=== PATIENT | female | born 1940 | race Caucasian/White ===

== ENCOUNTER 2016-06-20 05:43 | Inpatient (IN) | payer OTHER ==
[2016-06-15 11:44] VITALS: BMI 25.0
--- NOTE | 2016-06-15 12:08 | PAT Medication Instructions ---
Service Date Jun 15, 2016. Current Home Medication List Calcium Carbonate (Caltrate 600), 1 TAB PO QAM Fish Oil (Redford-3), 1 CAP PO QAM Lisinopril (Zestril), 10 MG PO QAM Vitamin E (Cvs Vitamin E), 1 TAB PO QAM Medication Instructions For Your Scheduled Surgery - Hold the following medications as of 06/16/16: Fish Oil (Redford-3), 1 CAP PO QAM Vitamin E (Cvs Vitamin E), 1 TAB PO QAM - Hold the following medications the morning of surgery: Calcium Carbonate (Caltrate 600), 1 TAB PO QAM Lisinopril (Zestril), 10 MG PO QAM *Nothing to eat or drink after midnight* If you have any questions please call us at [phone] or [phone] or [phone]
[2016-06-15 13:03] LABS: BASO % 1.1 %; BASO ABS # 0.06 K/uL (0-0.2); COMPLETE YES; EOS % 3.7 %; HEMATOCRIT 39.1 % (37-47); IG% 0.2 %; LYMPH % 28.9 %; LYMPH ABS # 1.64 K/uL (1.2-3.4); MEAN CELL VOLUME 83.4 fL (80-100); MEAN CORPUSCULAR HEMOGLOBIN 28.4 pg (25-34); MEAN PLATELET VOLUME 9.4 fL (7.4-10.4); MONO % 9.2 %; NEUT % 56.9 %; PLATELET COUNT 269 K/uL (130-400); RED BLOOD COUNT 4.69 M/uL (4.2-5.4); WHITE BLOOD COUNT 5.67 K/uL (4.8-10.8)
--- NOTE | 2016-06-15 13:08 | DIAGNOSTIC IMAGING REPORT ---
CHEST PREADMISSION(PA/LAT) HISTORY: Preop. COMPARISON: None. FINDINGS: No pleural effusions. No pneumothorax. No focal lung consolidations. No evidence for pulmonary edema. The heart is top normal in size. Mildly tortuous thoracic aorta. Retrocardiac density is consistent with a moderate hiatus hernia. IMPRESSION: No acute process. Moderate hiatus hernia Electronically signed by: Delbert Zapata M.D. 06/15/2016 1:07 PM Dictated Date/Time: 06/15/2016 1:06 PM
[2016-06-15 13:18] LABS: BUN/CREATININE RATIO 27.9 (10-20); CALCIUM 9.9 mg/dl (8.5-10.1); CREATININE 0.71 mg/dl (0.60-1.20)
[2016-06-15 13:24] LABS: URINE APPEARANCE CLOUDY (CLEAR); URINE BILIRUBIN NEG (NEG); URINE COLOR YELLOW; URINE EPITHELIAL CELL AUTO >30 /lpf (0-5); URINE NITRITE POS (NEG); URINE SPECIFIC GRAVITY 1.019 (1.000-1.030); UROBILINOGEN NEG (NEG)
[2016-06-15 13:41] LABS: MANUAL MICROSCOPIC REQUIRED? NO; REVIEW REQ? YES
[~2016-06-20] VITALS: Ht 160 cm; Wt 63.0 kg
[2016-06-20] VITALS (13 sets, daily range): BP systolic 132–159; BP diastolic 68–89; PULSE 45–85; TEMP 36.3–36.8; O2SAT 98–100; Ht 160 cm; Wt 63.0 kg
[~2016-06-20 05:43] MED LIST: CALCTAB5 PO; LISI-461 PO; OMEG10007 PO; VITA-88 PO
[2016-06-20] MEDS ORDERED: LACTATED RINGER'S 1000ML 1,000 ML IV SCH (06:00)
[2016-06-20] MEDS ORDERED: CEFAZOLIN 1000MG/55 ML D5W IV SCH (06:00)
[2016-06-20] MEDS ORDERED: MIDAZOLAM HCL 1 MG/ML 2ML VIAL ONE (06:37)
[2016-06-20] MEDS ORDERED: FENTANYL CITRATE INJ 50 MCG/1 ML 2 ML VIAL ONE ×3 (06:37→08:02)
[2016-06-20] MEDS ORDERED: SODIUM CHLORIDE 0.9% PF 50 ML VIAL ONE (06:55)
[2016-06-20] MEDS ORDERED: BACITRACIN 50000 UNIT VIAL ONE (06:56)
--- NOTE | 2016-06-20 07:16 | History & Physical Bridge Note ---
H&P Re-Evaluation Bridge Note: I have examined the patient, reviewed the History & Physical and in the interval since the performance of the History & Physical I have noted the following changes of clinical significance: No changes noted
--- NOTE | 2016-06-20 07:17 | History and Physical ---
History & Physical Date Jun 20, 2016. History of Present Illness The patient is a 75 year old female with complaints of Past Medical/Surgical History neck and arm pain Additional History Hepatic Disease: No Endocrine Disorder: No Kidney Disease: No Hypertension: No Heart Disease: No Bleeding Tendencies: No Infectious Diseases: No Allergies Coded Allergies: No Known Allergies (Unverified , 06/20/16) Home Medications Scheduled Calcium Carbonate (Caltrate 600), 1 TAB PO QAM Fish Oil (Stafford-3), 1 CAP PO QAM Lisinopril (Zestril), 10 MG PO QAM Vitamin E (Cvs Vitamin E), 1 TAB PO QAM Physical Examination Skin: warm/dry, no rash Eyes: normal inspection, EOMI, sclerae normal ENT: normal ENT inspection, pharynx normal Head: normocephalic, atraumatic Neck: supple, no adenopathy, trachea midline Respiratory/Chest: lungs clear, normal breath sounds, no respiratory distress Cardiovascular: regular rate, rhythm, no edema, no murmur Abdomen / GI: normal bowel sounds, non tender Back: normal inspection Extremities: normal inspection, normal range of motion Neurologic/Psych: no motor/sensory deficits, alert, normal reflexes, oriented x 3 Diagnosis cervical stenosis Plan of Treatment C5 corpectomy possible C6-7 acdf
[2016-06-20] MEDS ORDERED: PHENYLEPHRINE 100MCG/ML 5ML SYR IV PRN (07:30)
[2016-06-20] MEDS ORDERED: LABETALOL HCL IV 5 MG/ML 20ML IV PRN (07:30)
[2016-06-20] MEDS ORDERED: ATROPINE SULFATE 0.1 MG/ML 5ML SYR IV PRN (07:30)
[2016-06-20] MEDS ORDERED: MEPERIDINE HCL 25 MG/ML CARP IV PRN (07:30)
[2016-06-20] MEDS ORDERED: MoRPHine SULFATE 10 MG/ML CARP/VIAL IV PRN (07:30)
[2016-06-20] MEDS ORDERED: ONDANSETRON INJ 2 MG/ML 2 ML VIAL IV PRN ×2 (07:30→09:00)
[2016-06-20] MEDS ORDERED: EpHEDrine SULFATE INJ 50 MG/ML AMP IV PRN (07:30)
[2016-06-20] MEDS ORDERED: FLUMAZENIL 0.1 MG/1 ML 10 ML VIAL IV PRN (07:30)
[2016-06-20] MEDS ORDERED: NALOXONE HCL 0.4 MG/1 ML VIAL/CARP IV PRN ×2 (07:30→09:00)
[2016-06-20] MEDS ORDERED: HYDROmorphone INJ 1 MG/ML SYR IV PRN ×2 (07:30→11:15)
[2016-06-20] MEDS ORDERED: HYDROmorphone INJ 2 MG/ML SYR/VIAL ONE ×2 (07:56→08:54)
[2016-06-20] MEDS ORDERED: LIDOCAINE HCL 2% 2 ML VIAL (20MG/ML) ONE (08:42)
[2016-06-20] MEDS ORDERED: DEXAMETHASONE SOD INJ 4 MG/ML VIAL ONE (08:42)
[2016-06-20] MEDS ORDERED: PROPOFOL IV EMULSION 10 MG/ML 20 ML VIAL IV ONE (08:42)
[2016-06-20] MEDS ORDERED: ROCURONIUM BROMIDE 10 MG/ML 5 ML VIAL ONE ×2 (08:42→08:59)
--- NOTE | 2016-06-20 08:55 | [facility] Post Operative Brief Note ---
Immediate Operative Summary Operative Date Jun 20, 2016. Pre-Operative Diagnosis Cervical stenosis Post-Operative Diagnosis Cervical stenosis Procedure(s) Performed C5 Corpectomy, C6-C7 Anterior Cervical Decompression Fusio; Application of Brittani; Anterior Plate and Screw Fixation Surgeon Dr. Shultz Rib Cloth Knitter Surgeon(s) Arabella Purcell PA-C Estimated Blood Loss 5 cc Findings stenosis Specimens none per surgeon
[2016-06-20] MEDS ORDERED: PHENYLEPHRINE 100MCG/ML 5ML SYR ONE (08:59)
[2016-06-20] MEDS ORDERED: NEOSTIGMINE METHYLSULFATE 1 MG/ML 10ML VIAL ONE (08:59)
[2016-06-20] MEDS ORDERED: ONDANSETRON INJ 2 MG/ML 2 ML VIAL ONE (08:59)
[2016-06-20] MEDS ORDERED: GLYCOPYRROLATE INJ 0.2 MG/ML VIAL ONE (08:59)
[2016-06-20] MEDS ORDERED: DO NOT ADMINISTER PNEUMOCOCCAL VACCINE PRN ×2 (09:00)
[2016-06-20] MEDS ORDERED: HYDROmorphone INJ 0.5 MG/0.5 ML SYR IV PRN (09:00)
[2016-06-20] MEDS ORDERED: DiphenhydrAMINE HCL 50 MG/ML VIAL IV PRN (09:00)
[2016-06-20] MEDS ORDERED: OXYCODONE HCL IR 5 MG TAB (IMMEDIATE RELEASE) PO PRN (09:00)
[2016-06-20] MEDS ORDERED: LORAZEPAM 0.5 MG TAB PO PRN (09:00)
[2016-06-20] MEDS ORDERED: MAGNESIUM HYDROXIDE SUSP 30 ML UDC PO PRN (09:00)
[2016-06-20] MEDS ORDERED: ACETAMINOPHEN IV 1,000 MG in EMPTY BAG 0 ML IV PRN (09:00)
[2016-06-20] MEDS ORDERED: DO NOT ADMINISTER FLU VACCINE PRN ×3 (09:00)
[2016-06-20] MEDS ORDERED: DEXAMETHASONE INJ 8 MG in SYRINGE 0 ML IV PRN (09:00)
[2016-06-20] MEDS ORDERED: RACEPINEPHRINE 2.25% NEBU SOLN 0.5 ML VIAL INH PRN (09:00)
[2016-06-20] MEDS ORDERED: LORAZEPAM INJ 0.5 MG in SYRINGE 0.75 ML IV PRN (09:00)
--- NOTE | 2016-06-20 09:30 | DIAGNOSTIC IMAGING REPORT ---
INTRAOPERATIVE RADIOGRAPHS CLINICAL HISTORY: C5 corpectomy with C4-C7 spinal fusion. Fluoroscopy time: 8 seconds. FINDINGS: 2 spot fluoroscopic views of the cervical spine are presented. An endotracheal tube is noted. There is evidence of corpectomy at C5 with anterior fusion from C4 -C7. The orthopedic hardware appears intact. IMPRESSION: Intraoperative images from C4 -C7 spinal fusion as above. Electronically signed by: Harrison Real M.D. 06/20/2016 9:29 AM Dictated Date/Time: 06/20/2016 9:28 AM
[2016-06-20] MEDS ORDERED: HydrALAZINE HCL 20 MG/ML VIAL ONE (09:41)
[2016-06-20] MEDS ORDERED: FLOSEAL HEMOSTATIC MATRIX 10ML TOP ONE (09:58)
[2016-06-20] MEDS ORDERED: HydrALAZINE HCL 20 MG/ML VIAL IV. ONE (10:00)
--- NOTE | 2016-06-20 10:23 | Anesthesiology Progress Note ---
Anesthesia Post Op Note Date & Time Jun 20, 2016 at 10:23 Vital Signs Pain Intensity: 0 Vital Signs Past 12 Hours Date Time Temp Pulse Resp B/P Pulse Ox O2 Delivery O2 Flow Rate FiO2 06/20/16 10:15 36.1 47 18 152/67 99 Nasal Cannula 3 06/20/16 10:05 47 16 155/71 99 Nasal Cannula 3 06/20/16 10:02 48 16 99 06/20/16 10:02 48 16 06/20/16 10:00 147/83 06/20/16 09:57 47 20 06/20/16 09:57 44 20 99 06/20/16 09:55 175/71 06/20/16 09:52 50 15 100 06/20/16 09:52 50 15 06/20/16 09:50 163/75 06/20/16 09:47 47 17 100 06/20/16 09:47 47 17 06/20/16 09:46 47 17 06/20/16 09:46 47 17 100 06/20/16 09:45 170/82 06/20/16 09:41 47 17 06/20/16 09:41 47 17 100 06/20/16 09:40 174/76 06/20/16 09:36 51 14 06/20/16 09:36 51 14 100 06/20/16 09:35 170/79 06/20/16 09:31 48 14 06/20/16 09:31 48 14 100 06/20/16 09:30 165/78 06/20/16 09:26 53 11 100 06/20/16 09:26 52 11 06/20/16 09:25 54 12 06/20/16 09:25 54 12 182/83 100 06/20/16 09:21 176/83 06/20/16 09:20 54 9 100 06/20/16 09:20 54 9 06/20/16 09:15 57 14 150/95 100 06/20/16 09:15 58 14 06/20/16 09:10 57 11 06/20/16 09:10 57 11 175/85 100 06/20/16 09:09 35.8 61 15 167/90 100 Mask 10 06/20/16 06:28 36.6 59 20 159/86 99 Room Air Notes Mental Status: alert / awake / arousable, participated in evaluation Pt Amnestic to Procedure: Yes Nausea / Vomiting: adequately controlled Pain: adequately controlled Airway Patency, RR, SpO2: stable & adequate BP & HR: stable & adequate Hydration State: stable & adequate Anesthetic Complications: no major complications apparent
[2016-06-20] MEDS: LACTATED RINGER'S 1000ML 1,000 ML IV SCH ×2 (11:53→23:47)
[2016-06-20] MEDS ORDERED: SCOPOLAMINE 1.5 MG TDSY TD SCH (12:00)
--- NOTE | 2016-06-20 12:25 | OPERATIVE REPORT ---
DATE OF OPERATION: 06/20/2016 PREOPERATIVE DIAGNOSIS: Cervical spinal stenosis with myeloradiculopathy. POSTOPERATIVE DIAGNOSIS: Same. PROCEDURES PERFORMED: 1. Anterior cervical corpectomy C5. 2. Anterior cervical discectomy C6-C7. 3. Anterior cervical arthrodesis C4-C6, C6-C7. 4. Placement of PEEK cage 21 mm in height from C4-C6 and 6 mm at C6-C7. 5. Placement of locally harvested morcellized autograft combined with Brittani bone grafting in the interbody spacers. 6. Application of Benitez plate and screws from C4-C7. SURGEON: Dr. Adilson Shultz. APPEALS COORDINATOR: Arabella Purcell PA-C. Due to the complex nature of the procedure, the entire surgery was performed with the operational assistance of JULIAN Gonzalez. The physician office assistant, under direct supervision, was involved in the actual performance of all aspects of the surgical procedure including hemostasis, tissue retraction and incision, instrument management, patient positioning, and wound closure. ANESTHESIA: General. DISPOSITION: The patient awakened and taken to PACU in stable condition. HISTORY OF PATIENT'S PROBLEMS: This is a 75-year-old female that presents with above-mentioned diagnosis. After failing an extensive course of nonoperative care, elected to undergo the above-mentioned procedure. Risks, benefits, pros, cons, and alternatives were outlined in detail preoperatively. DESCRIPTION OF PROCEDURE: The patient was met with preoperatively, the case discussed and all questions were addressed. At that point, the patient was taken back to operative suite and after undergoing successful general endotracheal intubation via department of anesthesia was placed in supine position on the Joaquin table with head in Rucker tilting head band sawyer. All bony prominences were well padded and the eyes were inspected to ensure there was no external pressure placed upon them. At this point, anterior cervical spine was prepped and draped in normal sterile fashion. With the assistance of fluoroscopy, we identified the C5-C6 disc space and transverse incision was placed along the right anterior aspect of the cervical spine overlying this region. Sharp dissection with the assistance of bipolar electrocautery was performed down to and exposing the anterior cervical spine from C4-C7. A self-retaining retractor was placed. I then performed a complete discectomy of C4-5, out to the uncovertebral joints, followed by C5-C6. Distracting pins were placed in C4 and C6 to distract across the C5 vertebral body. A complete corpectomy was then performed including removal of all posterior annular fibers, longitudinal ligament and bilateral foraminotomies. The endplates were then burred to subcortical bleeding bone and a 21 mm PEEK cage filled with locally harvested morcellized autograft and Brittani bone grafting tapped into position. Distracting apparatus was removed and we proceeded to C6-C7, again a complete discectomy was performed, endplates curetted to subcortical bleeding bone and a 6 mm PEEK cage filled with locally harvested morcellized autograft and Brittani bone grafting tapped into position. Distracting apparatus was removed. All anterior osteophytes burred to a smooth cortical surface and Benitez plate and screws applied with the assistance of fluoroscopy. The incision was then copiously irrigated, explored to ensure there was no damage to surrounding structures or remaining bleeding. A 10 round PENNIE drain inserted. It was then closed with 2-0 Vicryl in the fascia, 4-0 Monocryl for final skin closure. Steri-Strips and sterile dressing was placed. The patient was awakened and taken to PACU in stable condition. I attest to the content of the Intraoperative Record and any orders documented therein. Any exceptio ns are noted below.
[2016-06-20] MEDS: DEXAMETHASONE INJ 6 MG in SYRINGE 0 ML IV SCH ×2 (12:51→20:46)
[2016-06-20] MEDS ORDERED: RXC5 PO (15:50)
--- NOTE | 2016-06-20 15:51 | Discharge Instructions ---
Discharge Instructions Date of Service Jun 20, 2016. Admission Reason for Admission: Cervical Spinal Stenosis Discharge Discharge Diagnosis / Problem: cervical stenosis Discharge Goals Goal(s): Improve function Activity Recommendations Activity Limitations: per Instructions/Follow-up section . Instructions / Follow-Up Instructions / Follow-Up ACTIVITY RECOMMENDATIONS: SELF CARE INSTRUCTIONS AFTER CERVICAL FUSIONS 1. No smoking. Smoking drastically decreases the chance of a solid fusion. 2. No bending, lifting more than 5 pounds, or twisting (roll like a log when turning in bed). 3. You may shower 3 days after surgery. Thoroughly dry wound. Do not soak in the tub. 4. Cervical collar: Must be worn at all times including sleeping. You may remove the brace only to bath, eat and if you are sitting in a recliner. 5. Please walk as much as you can for exercise. Gradually increase the distance that you walk as your endurance increases. SPECIAL CARE INSTRUCTIONS: VERY IMPORTANT TO READ AND REVIEW A. Do not take any anti-inflammatory medications (i.e. Indocin, Advil, Aspirin, Naprosyn, Aleve, Motrin, etc.) as these may inhibit the chance of a solid fusion. Tylenol is okay to take. B. Your surgical incision has been closed with a cosmetic suture under the skin that will dissolve in about 6 weeks. In 14 days, you can use a pair of clean scissors and cut the suture that is left outside of the skin at the ends of your incision. C. Complications are uncommon, but please contact us if you have any signs or symptoms of: 1. wound infection (fever higher than 102.5 degrees F, redness, separation of wound, drainage, or increasing pain from the incision) 2. blood clots in legs (pain, swelling, redness and warmth in legs) 3. urinary tract infection (fever higher than 102.5 degrees, burning upon urination or increased frequency of urination) 4. nerve problems (inability to walk on your toes or heels, numbness, loss of bowel or bladder control) 5. any other symptoms that concern you. D. Please call the office at if you have any concerns or questions about your operation or recovery. MANAGING PAIN AFTER SPINAL SURGERY 1. Narcotic medication is intended for short-term use and will be provided for surgical pain. Surgical pain usually lasts for a period of 4-6 weeks. Narcotic medication includes Percocet, Vicodin, Darvocet, Tylenol #3 or Lortab. 2. Longer-term pain is more appropriately treated with non-narcotic medication such as Tylenol ES. 3. Muscle spasm is not appropriately treated with narcotics. Muscle relaxers such as Soma, Flexeril or Skelaxin can be used along with Tylenol ES. 4. Remember that we all live with some "aches and pains". This is not unusual or uncommon after an injury or as we get older. 5. We will provide appropriate medication within the normal guidelines of their prescribed use. We will also be very cautious and aware of potential abuse and extended duration of patients' medication needs. 6. Please allow 2-3 days to process refills. Prescriptions will not be mailed but must be picked up at the office. FOLLOW UP VISIT: Keep your scheduled follow-up appointment. Any questions, please call the office at . Current Hospital Diet Patient's current hospital diet: Clear Liquid Diet Discharge Diet Recommended Diet: Regular Diet Procedures Procedures Performed: C5 Corpectomy, C6-C7 Anterior Cervical Decompression Fusio; Application of Brittani; Anterior Plate and Screw Fixation Pending Studies Studies pending at discharge: no Medical Emergencies . Who to Call and When: Medical Emergencies: If at any time you feel your situation is an emergency, please call 911 immediately. . Non-Emergent Contact Non-Emergency issues call your: Primary Care Provider . "Provider Documentation" section prepared by Adilson Shultz. VTE Core Measure Inpt VTE Proph given/why not?: Josephine Jernigan, DAVE's
[2016-06-20] MEDS: CHECK SCOPOLAMINE PATCH PLACEMENT SCH ×2 (15:54→23:48)
[2016-06-20] MEDS: CEFAZOLIN IV 1,000 MG in DEXTROSE 5% 50ML 50 ML IV SCH ×2 (15:57→23:47)
[2016-06-20] MEDS: DOCUSATE SODIUM 100 MG CAP PO SCH (20:46)
[2016-06-21] VITALS (12 sets, daily range): BP systolic 139–154; BP diastolic 68–77; PULSE 43–80; TEMP 36–36.9; O2SAT 93–98
[2016-06-21] MEDS: DEXAMETHASONE INJ 6 MG in SYRINGE 0 ML IV SCH (03:51)
[2016-06-21] MEDS: CHECK SCOPOLAMINE PATCH PLACEMENT SCH (08:00)
[2016-06-21] MEDS: CEFAZOLIN IV 1,000 MG in DEXTROSE 5% 50ML 50 ML IV SCH (08:29)
[2016-06-21] MEDS: DOCUSATE SODIUM 100 MG CAP PO SCH (08:30)
[2016-06-21] MEDS ORDERED: LISINOPRIL 10 MG TAB PO SCH (09:00)
[2016-06-21] MEDS ORDERED: CALCIUM 600MG + VIT D 400 IU TAB PO SCH (09:00)
--- NOTE | 2016-06-21 10:47 | Anesthesiology Progress Note ---
Anesthesia Post Op Note Date & Time Jun 21, 2016 at 10:47 Vital Signs Pain Intensity: 0.0 Vital Signs Past 12 Hours Date Time Temp Pulse Resp B/P Pulse Ox O2 Delivery O2 Flow Rate FiO2 06/21/16 07:49 77 14 94 Room Air 06/21/16 07:20 36.0 54 16 154/72 96 Nasal Cannula 06/21/16 07:15 36.0 50 16 154/72 96 Nasal Cannula 1.0 06/21/16 07:15 Nasal Cannula 1.0 Humidified Oxygen 06/21/16 06:30 36.7 50 16 148/68 96 Nasal Cannula 1.0 Humidified Oxygen 06/21/16 05:37 43 18 97 Nasal Cannula 2.0 06/21/16 03:45 36.6 65 16 146/70 97 Nasal Cannula 2.0 Humidified Oxygen 06/21/16 01:45 36.9 66 16 142/77 98 Nasal Cannula 2.0 Humidified Oxygen 06/21/16 01:30 80 18 97 Nasal Cannula 2.0 06/20/16 23:45 Nasal Cannula 4.0 Humidified Oxygen 06/20/16 23:45 36.8 55 16 159/69 99 Nasal Cannula 3.0 Humidified Oxygen Notes Mental Status: alert / awake / arousable, participated in evaluation Pt Amnestic to Procedure: Yes Nausea / Vomiting: adequately controlled Pain: adequately controlled Airway Patency, RR, SpO2: stable & adequate BP & HR: stable & adequate Hydration State: stable & adequate Anesthetic Complications: no major complications apparent
--- NOTE | 2016-06-21 20:19 | DISCHARGE SUMMARY ---
PRINCIPAL DIAGNOSIS: Cervical spondylosis with myelopathy. HOSPITAL COURSE FOLLOWS: On June 20, patient underwent anterior cervical discectomy, corpectomy and fusion, tolerated this well and taken to the orthopedic floor postoperatively. Postop day #1, PENNIE drain decreased appropriately, swallowing well, no hoarseness. Arm symptoms markedly improved, subsequently discharged home. Discharge orders and instructions found on the chart for further review.
[2016-06-22] MEDS ORDERED: BISACODYL 5 MG TABEC PO PRN (06:00)
[2016-06-22] MEDS ORDERED: BISACODYL 10 MG SUPP PR PRN (06:00)
[2016-06-22] MEDS ORDERED: POLYETHYLENE (MIRALAX) 17 GM PACK PO SCH (09:00)
== END 2016-06-21 14:46 | disposition home or self-care (01) | DRG 473 ==
LOC: ENRESERVDT → ENRESERVTM → C.ACU 05:43 → C.3E 07:00
PROVIDERS: ADMIT Orthopaedic Surgery Orthopaedic Surgery of the Spine; ATTEND Orthopaedic Surgery Orthopaedic Surgery of the Spine
PROC: 0RG20A0 Fusion of 2 or more Cervical Vertebral Joints with Interbody Fusion Device, Anterior Approach, Anterior Column, Open Approach (ICD-10-PCS; principal; 2016-06-20 07:45)
DX: M47.12 Other spondylosis with myelopathy, cervical region (principal)

== ENCOUNTER → 2016-12-21 | Outpatient (CLI) | payer OTHER ==
[~2016-12-21] MED LIST changes: +RXC5 PO
--- NOTE | 2016-12-21 13:41 | DIAGNOSTIC IMAGING REPORT ---
NUCLEAR GASTRIC EMPTYING STUDY: CLINICAL HISTORY: HIATAL HERNIA W/REFLUX ABDOMINAL DISCOMFORT COMPARISON STUDY: TECHNIQUE: Following the oral administration of 1.1 mCi of technetium 99m sulfur colloid in egg sandwich and 8 ounces of water, static abdominal images are performed anteriorly and posteriorly at 0 minutes, 1 hour, 2 hours, and 4 hour time intervals. Gastric emptying was calculated utilizing the geometric mean method. FINDINGS: There is approximately 85 % gastric activity remaining at the 1 hour time interval, 70 % at the 2 hour time interval (normal is less than 60%), and 49 % remaining at the 4 hour time interval (normal is less than 10%). These findings are consistent with an abnormal study with delayed gastric emptying IMPRESSION: Findings are consistent with an abnormal study with delayed gastric emptying Electronically signed by: Toni Quiroz M.D. 12/21/2016 1:40 PM Dictated Date/Time: 12/21/2016 1:38 PM
== END | disposition home or self-care (01) ==
LOC: C.NUCL 07:41
PROVIDERS: ATTEND Physician Assistant Medical
DX: K44.9 Diaphragmatic hernia without obstruction or gangrene (principal)

== ENCOUNTER → 2017-01-05 | Outpatient (CLI) | payer OTHER | END | disposition home or self-care (01) | LOC: C.RC 08:48 | PROVIDERS: ATTEND Thoracic Surgery (Cardiothoracic Vascular Surgery) | DX: J98.11 Atelectasis (principal); K44.9 Diaphragmatic hernia without obstruction or gangrene; K21.9 Gastro-esophageal reflux disease without esophagitis ==

== ENCOUNTER 2018-11-11 16:25 | Inpatient (IN) ==
--- OUTSIDE RECORDS SUMMARY | 2018-11-11 16:28 | External Medical Summary | Continuity of Care Document ---
:1940 Author Name Jordan Garza Address Unavailable Unavailable , Care Team Providers Name Role Phone Cable DO Unavailable [email or web address] Unavailable Unavailable Problems Active medical history not documented Allergies and Adverse Reactions Allergy history not documented Medications Medications not documented Procedures Procedures not documented Immunizations Immunizations not documented Plan of Treatment Planned Observations Planned Goals not documented Results No Known Results Results not documented
[2018-11-11 17:42] LABS: Appearance Urine Turbid (Clear); Bacteria Urine Automated 1+ (Negative); Bilirubin Urine Negative (Negative); Blood Urine 2+ (Negative); Color Urine Yellow; Epithelial Cell Urine Auto >30 /lpf (0-5); Glucose Urine UA Negative (Negative); Ketones Urine Negative (Negative); Leukocyte Esterase Urine 3+ (Negative); Nitrite Urine Positive (Negative); Protein Urine 2+ (Negative); RBC Urine Automated 0-4 /hpf (0-4); Specific Gravity Urine 1.013 (1.000-1.030); Urobilinogen Urine Negative (Negative); WBC Urine Automated >30 /hpf (0-5)
[2018-11-11 17:50] LABS: Basophils # (auto) 0.03 K/uL (0-0.2); Basophils % (auto) 0.6 %; Eosinophils # (auto) 0.15 K/uL (0-0.5); Eosinophils % (auto) 2.8 %; Hematocrit (blood only) 31.4 % (37-47); Hemoglobin 10.3 g/dL (12.0-16.0); Immature Granulocytes # (auto) 0.01 K/uL (0.00-0.02); Immature Granulocytes % (auto) 0.2 %; Lymphocytes # (auto) 1.08 K/uL (1.2-3.4); Lymphocytes % (auto) 19.9 %; Mean Corpuscular Hemoglobin 26.1 pg (25-34); Mean Corpuscular Hgb Conc 32.8 g/dL (32-36); Mean Corpuscular Volume 79.7 fL (80-100); Mean Platelet Volume 9.2 fL (7.4-10.4); Monocytes % (auto) 12.9 %; Neutrophils # (auto) 3.46 K/uL (1.4-6.5); Neutrophils % (auto) 63.6 %; Platelet Count 231 K/uL (130-400); RDW Coefficient of Variation 16.9 % (11.5-14.5); RDW Standard Deviation 49.7 fL (36.4-46.3); Red Blood Count 3.94 M/uL (4.2-5.4); White Blood Count 5.43 K/uL (4.8-10.8)
[2018-11-11] MEDS ORDERED: cefTRIAXone SODIUM 1,000 MG/50 ML BAG IV STA (17:50)
[2018-11-11] MEDS ORDERED: SODIUM CHLORIDE 0.9% 1000ML 1,000 ML IV STA (17:50)
--- NOTE | 2018-11-11 17:55 | CT Scan Report ---
CT abd pelvis wo con CT DOSE: 254.73 mGy.cm HISTORY: Pain ARF, suprapubic abd pain TECHNIQUE: Multiaxial CT images of the abdomen and pelvis were performed without contrast. A dose lo wering technique was utilized adhering to the principles of ALARA. COMPARISON STUDY: None. FINDINGS: Dependent bibasilar atelectasis. Hiatal hernia. General configuration of liver spleen and p ancreas is unremarkable. Bilateral hydroureteronephrosis. Left renal cyst. Considerable distention of the right as well as left ureter. Large soft tissue mass occupying the bulk of the soft tissue pelvic region. This extends through the right obturator foramen. There is partial extension to the left obturator foramen. Rectum is displaced to the right. No evidence for bowel obstructive changes at this time. IMPRESSION: 1. Large low and mid pelvic mass extending to the right as well as left obturator foramen.. This occu pies the bulk of the mid to lower pelvic region.. 2. This large mass contain several calcifications and is of uncertain origin. 3. Mass creates bilateral renal obstructive change with bilateral hydroureteronephrosis. 4. Considerations must include a low pelvic neoplastic process of uncertain origin. 5. Differential considerations must also include the possibility of lymphoma. The above report was generated using voice recognition software. It may contain grammatical, syntax or spelling errors. Electronically signed by: Jacob Dykes M.D. 11/11/2018 5:54 PM
[2018-11-11 17:58] LABS: Cast Urine Automated 0 /lpf (0-5)
[2018-11-11 18:00] LABS: Alanine Aminotransferase 7 U/L (12-78); Albumin Level 2.5 gm/dl (3.4-5.0); Aspartate Aminotransferase 15 U/L (15-37); BUN Creatinine Ratio 11.3 (10-20); Blood Urea Nitrogen 33 mg/dl (7-18); Calcium 9.5 mg/dl (8.5-10.1); Carbon Dioxide 28 mmol/L (21-32); Chloride 103 mmol/L (98-107); Est GFR (African American) 17.1; Est GFR (Non-African American) 14.7; Glucose 99 mg/dl (70-99); Lipase 67 U/L (73-393); Potassium 4.2 mmol/L (3.5-5.1); Sodium 139 mmol/L (136-145)
[2018-11-11 18:02] LABS: Albumin Globulin Ratio 0.6 (0.9-2); Alkaline Phosphatase 67 U/L (45-117); Bilirubin,Total 0.4 mg/dl (0.2-1); Globulin 4.3 gm/dl (2.5-4.0); Total Protein 6.8 gm/dl (6.4-8.2)
--- NOTE | 2018-11-11 18:30 | Emergency Department Note ---
Entered by Dodie Aguilar acting as a scribe for ED Provider Note CHIEF COMPLAINT: Abnormal labs HISTORY OF PRESENT ILLNESS: The patient is a 78 year old female who presents to the Emergency Room with complaints of abnormal labs. The patient states that she got lab work done at [facility] 2 days ago, but received a call today saying that they are concerned for MERRILL. The patient states that she is in no pain, but she struggles with low energy levels. The patient notes that she also has been losing weight in the past 8 months. The patient states that she has episodes of double vision that comes and goes intermittently. The patient notes that she is good at staying hydrated and states that she urinates frequently. Pt denies LOC, headache, fevers, chills, diaphoresis, visual changes, neck pain, chest pain, breathing difficulties, nausea, vomiting, abdominal pain, back pain, melena, hematochezia, urinary symptoms, numbness, weakness, lymphadenopathy, rash, or other complaints. REVIEW OF SYSTEMS: See HPI for pertinent positives and negatives. A total of ten systems were reviewed and were otherwise negative. PMHx/PSHx: Cervical stenosis of spinal canal SOCIAL HISTORY: Patient lives at home. PHYSICAL EXAM: GENERAL: Awake, alert, well-appearing, in no distress HENT: Normocephalic, atraumatic. Oropharynx unremarkable. EYES: PERRL. Normal conjunctiva. Sclera non-icteric. NECK: Inspection normal. Non-tender. Supple. No nuchal rigidity. FROM. No masses. RESPIRATORY: Clear to auscultation. No wheezes. No rales. Normal respiratory effort. CARDIAC: Normal rate. Normal rhythm. No murmurs. No rubs. Extremities warm and well perfused. Pulses equal. No JVD. GI: Suprapubic abdominal pain. Soft, non-distended. No rebound or guarding. No masses. RECTAL: Deferred. MUSCULOSKELETAL: Atraumatic. Chest examination reveals no tenderness. The back is symmetrical on inspection without obvious abnormality. There is no CVA tenderness to palpation. No joint edema. LOWER EXTREMITIES: 1+ edema bilaterally. Calves are equal size bilaterally and non-tender. No discoloration. NEURO: Normal sensorium. No sensory or motor deficits noted. SKIN: No rash or jaundice noted. EMERGENCY DEPARTMENT COURSE: 1632: Past medical records reviewed. The patient was evaluated in room C3, and a complete history and physical examination were performed. 165: Old medical records reviewed. Creatinine was 1.8 and GFR was 28. 1810: Patient was reassessed. She is still doing well. She was given IV Rocephin. I did consult with Dr. Hamilton of urology. The case was discussed and diagnostics were reviewed. He felt the patient does need urgent stenting and is making preparations. He has for the hospitalist to admit. 182: I discussed the patient's case with Liliana camacho NP- [facility]. They will evaluate the patient for further management. MEDICAL DECISION MAKING: Nursing notes reviewed and agree them. Additional history obtained from patient's . The patient's history was concerning for weakness. Differential diagnosis: Etiologies such as metabolic, infection, hypo/hyperglycemia, electrolyte abnormalities, cardiac sources, intracerebral event, toxicologic, neurologic, as well as others were entertained. Physical examination: As above. Suprapubic abdominal pain. ER treatment provided: IV [place] Sal[place] hydration. IV Rocephin N.p.o. On reassessment the patient felt better. Diagnostics interpretation by me: ECG: Twelve-lead ECG revealed sinus rhythm at 74 bpm with PVCs. There is anterolateral T wave inversions. Incomplete left bundle branch block. No ST elevation. The labs revealed a mild anemia on CBC. Chemistry panel revealed acute renal failure with a creatinine of 2.94. Urinalysis concerning for infection. Imaging studies: CT scan and then passes were performed. There is a significant amount of hydro- bilaterally. There is an obstructing pelvic mass. Discussed with Dr. parson of radiology. Consultation: Counseled patient was placed with urology, Dr. Hamilton. He will evaluate the patient for stenting and further management. A consultation was placed to [facility] service. Discussed case with Liliana camacho NP. Patient will be admitted for further management and diagnostic testing. IMPRESSION: MERRILL Pelvic mass Bilateral hydronephrosis Abnormal ECG PLAN: Evaluated by Hospitalist The scribe's documentation has been prepared under my direction and personally reviewed by me in its entirety. I confirm that the note above accurately r eflects all work, treatment, procedures, and medical decision making performed by me. Impression & Plan MERRILL (acute kidney injury) Past Med/Surg History Medical History Cervical stenosis of spinal canal Social History Feels Safe at Home: Yes Smoking Status: Never smoker Results & Data Vital Signs Vital Signs - 24 hr 11/11/18 16:28 11/11/18 17:30 Temperature 37.1 C Temperature Source Oral Sepsis Recent Fever Within 48 Hours No Sepsis New/Unexplained Change in Mental Status No Sepsis Action Taken by Nursing No Action Required Pulse Rate 84 Pulse Rate [Left] 72 Respiratory Rate 16 20 Respiratory Effort / Characteristics Non-Labored Respiratory Depth Normal Blood Pressure 126/78 Blood Pressure [Left Arm] 151/79 H Blood Pressure Mean 94 Blood Pressure Mean [Left Arm] 103 Pulse Oximetry 95 97 Oxygen Delivery Method Room Air Room Air Home Medications Current Medication List: was personally reviewed by me Laboratory Data Result diagrams: 11/11/18 17:35 11/11/18 17:35 Lab Results 11/11/18 11/11/18 11/11/18 Range/Units 17:24 17:35 17:35 WBC 5.43 (4.8-10.8) K/uL RBC 3.94 L (4.2-5.4) M/uL Hgb 10.3 L (12.0-16.0) g/dL Hct 31.4 L (37-47) % MCV 79.7 L (80-100) fL MCH 26.1 (25-34) pg MCHC 32.8 (32-36) g/dL RDW Std Deviation 49.7 H (36.4-46.3) fL RDW Coeff of [place] 16.9 H (11.5-14.5) % Plt Count 231 (130-400) K/uL MPV 9.2 (7.4-10.4) fL Immature Gran % (Auto) 0.2 % Neut % (Auto) 63.6 % Lymph % (Auto) 19.9 % [place] % (Auto) 12.9 % Eos % (Auto) 2.8 % Baso % (Auto) 0.6 % Immature Gran # (Auto) 0.01 (0.00-0.02) K/uL Neut # (Auto) 3.46 (1.4-6.5) K/uL Lymph # (Auto) 1.08 L (1.2-3.4) K/uL [place] # (Auto) 0.70 H (0.11-0.59) K/uL Eos # (Auto) 0.15 (0-0.5) K/uL Baso # (Auto) 0.03 (0-0.2) K/uL Sodium 139 (136-145) mmol/L Potassium 4.2 (3.5-5.1) mmol/L Chloride 103 (98-107) mmol/L Carbon Dioxide 28 (21-32) mmol/L Anion Gap 8.0 (3-11) BUN 33 H (7-18) mg/dl Creatinine 2.94 H (0.6-1.2) mg/dl Est Cr Clr Drug Dosing Not Reportable Est GFR ( Amer) 17.1 Est GFR (Non-Af Amer) 14.7 BUN/Creatinine Ratio 11.3 (10-20) Glucose 99 (70-99) mg/dl Calcium 9.5 (8.5-10.1) mg/dl Total Bilirubin 0.4 (0.2-1) mg/dl AST 15 (15-37) U/L ALT 7 L (12-78) U/L Alkaline Phosphatase 67 (45-117) U/L Total Protein 6.8 (6.4-8.2) gm/dl Albumin 2.5 L (3.4-5.0) gm/dl Globulin 4.3 H (2.5-4.0) gm/dl Albumin/Globulin Ratio 0.6 L (0.9-2) Lipase 67 L (73-393) U/L Urine Color Yellow Urine Appearance Turbid A (Clear) Urine pH 5.0 (4.5-7.5) Ur Specific [place] 1.013 (1.000-1.030) Urine Protein 2+ H (Negative) Urine Glucose (UA) Negative (Negative) Urine Ketones Negative (Negative) Urine Blood 2+ H (Negative) Urine Nitrite Positive A (Negative) Urine Bilirubin Negative (Negative) Urine Urobilinogen Negative (Negative) Ur Leukocyte Esterase 3+ H (Negative) Urine WBC (Auto) >30 H (0-5) /hpf Urine RBC (Auto) 0-4 (0-4) /hpf U Hyaline Cast (Auto) 0 (0-5) /lpf U Epithel Cells (Auto) >30 H (0-5) /lpf Urine Bacteria (Auto) 1+ H (Negative) Administered Medications Sodium Chloride (Nss 1000ml) 1,000 mls @ 125 mls/hr IV .Q8H STA Stop: 11/12/18 01:49 Last Admin: 11/11/18 18:13 Dose: 125 mls/hr Documented by: [id number] Discontinued Medications Ceftriaxone Sodium (Rocephin) 1,000 mg in 50 mls @ 100 mls/hr IV NOW STA Stop: 11/11/18 18:19 Last Admin: 11/11/18 18:13 Dose: 100 mls/hr Documented by: [id number] Blood Pressure Blood Pressure Findings: Normal blood pressure Blood Pressure Disposition: did not require urgent referral Discharge Plan Visit Data Chief Complaint: Abnormal Labs/Diagnostic Testing Stated Complaint: REF BY KIDNEY PROBLEMS ED Provider: Antelmo Varela Discharge Problem: MERRILL (acute kidney injury) Patient Disposition: Being Evaluated by Hospitalist Forms Stand Alone Forms: My [facility] Prescriptions Prescriptions: No Action gabapentin 100 mg capsule 100 mg PO BID RF: 0 metoprolol succinate 25 mg tablet extended release 24 hr 25 mg PO QAM RF: 0 lisinopril 40 mg tablet 40 mg PO QAM RF: 0 Referrals Referrals: Natacha King DO [Primary Care Provider] - The scribe's documentation has been prepared under my direction and personally reviewed by me in its entirety. I confirm that the note above accurately reflects all work, treatment, procedures, and medical decision making performed by me.
[2018-11-11 18:50] LABS: Troponin I < 0.015 ng/ml (0-0.045)
--- NOTE | 2018-11-11 19:36 | Urology Consultation ---
Date of Consultation November 11, 2018 Assessment & Plan (1) MERRILL (acute kidney injury): See below. Supportive care with hydration. (2) Acute bilateral obstructive uropathy: Patient with severe bilateral hydronephrosis with obstruction likely secondary to large irregular pelvic mass occupying and impacting the pelvic organs. Mcgraw in place and draining small amount of urine. Risks and benefits discussed at length for procedure. These include bleeding, infection, injury to surrounding tissues or organs, and risks associated with anesthesia. Patient states understanding and agrees to proceed. Will sign consent and marlene edule. Will plan on urgent intervention for bilateral obstruction with MERRILL. Plan for cystoscopy with stent placement bilateral. History of Present Illness History of Present Illness Patient with abnormal labs sent for evaluation. Was 1.5 cr. Recheck came back 2.9. Was evaluated and found to be in retention, however minimal urine returned. Patient then found to have extremely large pelvic mass with obstruction of ureter and mass effect on bladder. Denies previous bowel or bladder issues. Had hysterectomy many years ago for pelvic issues. Denies previous malignancy. Denies pain, discomfort, bloating, or other problems. Only reason presented to ER was for abnormal labs. Allergies Allergy/AdvReac Type Severity Reaction Status Date / Time acetaminophen [From Vicodin] Allergy Swelling Unverified 11/11/18 18:01 of Lip/Tongue/Throat hydrocodone [From Vicodin] Allergy Swelling Unverified 11/11/18 18:01 of Lip/Tongue/Throat Home Medications Home Medications Medication Instructions Recorded Confirmed Type lisinopril 40 mg PO QAM 11/11/18 11/11/18 History metoprolol succinate 25 mg PO QAM 11/11/18 11/11/18 History Patient History Medical History Cervical stenosis of spinal canal Social History Feels Safe at Home: Yes Smoking Status: Never smoker Review of Systems Review of Systems: All systems reviewed & are unremarkable except as noted in HPI & below Physical Exam Physical Exam: General: Alert and oriented x 3 in no acute distress. Patient is advanced age and thin. HEENT: Normocephalic Atraumatic. Inspection normal. Cranial Nerves 2-12 Grossly intact. Nares are clear. Neck is supple. Normal inspection of face. Normal inspection of neck. Neurologic: No deficits on inspection. Baseline for motor function and sensory. Psychologic: Normal affect. Somewhat anxious with new findings. Respiratory: Nonlabored. No use of accessory muscles. No tachypnea or dyspnea. Cardiovascular: No tachycardia Skin: [place] and Dry. No rashes or visible lesions. Extremities: Moving without issues. No motor deficits on inspection Lymphatics: No edema Abdomen: Moderately distended. No acites. No rebound or guarding. Genitourinary: Mcgraw in place draining clear yellow urine. . Results & Data Vital Signs (Past 12 Hours) Vital Signs Temp Pulse Pulse Resp BP BP Pulse Ox 11/11/18 17:30 72 20 151/79 H 97 11/11/18 16:28 37.1 C 84 16 126/78 95 PG Care Time/CCT Total # of Minutes Spent Total Time Spent with Patient: Total time spent is greater than 50% in coordination of care (as documented) at patient's floor/unit and/or counseling patient:
[2018-11-11] MEDS ORDERED: fentaNYL citrate 100 MCG/2 ML VIAL ONE (20:15)
[2018-11-11] MEDS ORDERED: PROPOFOL IV EMULSION 10 MG/ML 20 ML VIAL IV ONE (20:16)
[2018-11-11] MEDS ORDERED: LIDOCAINE HCL 2% 2 ML VIAL/AMP(20MG/ML) INFIL ONE (20:17)
[2018-11-11] MEDS ORDERED: ONDANSETRON INJ 2 MG/ML 2 ML VIAL ONE (20:17)
[2018-11-11] MEDS ORDERED: MIDAZOLAM HCL 1 MG/ML 2ML VIAL ONE (20:18)
[2018-11-11] MEDS ORDERED: IOTHALAMATE MEGLUMINE II 17.2% 250 ML VIAL ONE (20:27)
--- NOTE | 2018-11-11 20:30 | Anesthesiology Consultation ---
Date of Service November 11, 2018 Assessment & Plan Chart Review Chart Review: Acceptable Risk for Surgery Consults Requested none ASA [id number] Proposed Anesthesia Anesthesia Type: MAC History Surgery Operation Date: 11/11/18 20:00 Proposed Procedures p Ureteral Stent Insertion Bilateral(Bilateral) - Liang Hamilton II, DO Height/Weight Height: 5 ft 2 in Allergies Allergy/AdvReac Type Severity Reaction Status Date / Time acetaminophen [From Vicodin] Allergy Swelling Unverified 11/11/18 18:01 of Lip/Tongue/Throat hydrocodone [From Vicodin] Allergy Swelling Unverified 11/11/18 18:01 of Lip/Tongue/Throat Medications Home Medications Medication Instructions Recorded Confirmed Last Taken lisinopril 40 mg PO QAM 11/11/18 11/11/18 11/11/18 metoprolol succinate 25 mg PO QAM 11/11/18 11/11/18 11/11/18 Active Medications Generic Name Dose Route Start Last Admin Trade Name Freq PRN Reason Stop Dose Admin Sodium Chloride 1,000 mls @ 125 mls/hr 11/11/18 17:50 11/11/18 18:13 Nss 1000ml IV 11/12/18 01:49 125 mls/hr .Q8H STA Administration Past Medical History Medical History Cervical stenosis of spinal canal Social History Smoking Status: Never smoker Physical Exam Vital Signs Last Vital Signs Temp 37.1 C 11/11/18 16:28 Pulse 72 11/11/18 19:30 Resp 21 11/11/18 19:30 BP 165/74 H 11/11/18 19:30 Pulse Ox 95 11/11/18 19:01 Testing Laboratory Results 11/11/18 17:35 11/11/18 17:35 Urine Color Yellow 11/11/18 17:24 Urine Appearance Turbid (Clear) A 11/11/18 17:24 Urine pH 5.0 (4.5-7.5) 11/11/18 17:24 Ur Specific [place] 1.013 (1.000-1.030) 11/11/18 17:24 Urine Protein 2+ (Negative) H 11/11/18 17:24 Urine Glucose (UA) Negative (Negative) 11/11/18 17:24 Urine Ketones Negative (Negative) 11/11/18 17:24 Urine Nitrite Positive (Negative) A 11/11/18 17:24 Ur Leukocyte Esterase 3+ (Negative) H 11/11/18 17:24 Urine WBC (Auto) >30 /hpf (0-5) H 11/11/18 17:24 Urine RBC (Auto) 0-4 /hpf (0-4) 11/11/18 17:24 U Hyaline Cast (Auto) 0 /lpf (0-5) 11/11/18 17:24 U Epithel Cells (Auto) >30 /lpf (0-5) H 11/11/18 17:24 Urine Bacteria (Auto) 1+ (Negative) H 11/11/18 17:24
--- NOTE | 2018-11-11 20:57 | Communication Note ---
Date of Service: November 11, 2018 78 yo F
--- NOTE | 2018-11-11 21:13 | History & Physical Report ---
Date of Service November 11, 2018 Assessment & Plan (1) MERRILL (acute kidney injury): (2) Acute bilateral obstructive uropathy: (3) Pelvic mass: -Admit to [facility] -Patient referred to ED by outpatient neurologist after outpatient labs on 11/09 showed a creatinine 1.8 (was previously 0.8 on 10/01) -In the ED, CT ABD/pelvis is showing a very large pelvic mass that is causing a bilateral obstructive uropathy -Patient is scheduled to go to the OR this evening urgently with urology for ureteral stent placement -Urology is going to attempt to obtain tissue specimen however if unable, will need to consider CT or ultrasound-guided biopsy tomorrow -Etiology of this mass is unclear at this time, noted the patient recently had outpatient labs suggestive of MGUS and has been following with Dr. Sharpe with [facility] -Consider brain MRI to evaluate for metastases -Source of MERRILL is likely due to obstructive uropathy, should improve with stent placement. Continue supportive care with IVF, hold ELGIN inhibitor. (4) UTI (urinary tract infection): -UA suggest UTI -Received IV ceftriaxone in the ED, will continue with -Follow urine culture -Does not appear septic (5) Hypertension: -BP mildly elevated, likely situational -Continue metoprolol, holding lisinopril secondary to MERRILL -Provide alternative antihypertensive if needed (6) DVT prophylaxis: -SCDs due to invasive procedure History of Present Illness Chief Complaint: Referred by neurologist for abnormal labs Primary Care Provider: Natacha King DO 78-year-old female who was referred to the ED by her outpatient neurologist for evaluation of worsening renal function. Over the past couple months, patient has been being evaluated as an outpatient for weight loss. Initially, she was seen by her PCP who ordered a CT of the abdomen that showed an abnormality in the stomach. Patient was referred for EGD and colonoscopy which have not been completed yet. She was also found to have findings of MGUS on labs and has been following with hematology. 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 Labs were obtained on 11/09 that showed a creatinine of 1.8. Previously was 0.8 on 10/01. Patient's outpatient neurologist called the patient today and referred her to the ER for further evaluation. Patient reports a 50 pound weight loss since last February, with 20 of those pounds being in the past month. She reports early satiety. Over the past couple of days, she has noted urinary frequency. Today, she reports abdominal pain with bending over. She also has chronic back pain in which she has been seeing pain management and Dr. Shultz. She was given a prescription for gabapentin which caused double vision and therefore she stopped this medication. The double vision has since resolved. She denies chest pain or shortness of breath. No lightheadedness, dizziness, diaphoresis, syncopal events. No fevers or chills. In the ED, creatinine is 2.9 and she is mildly anemic with H/H 10.3/31.4. CT ABD/pelvis shows large low and mid pelvic mass extending to the right as well as left obturator foramen. Mass creates bilateral renal obstructive change with bilateral hydroureteronephrosis. Urology was contacted by the ED and patient will be going to the OR [facility] for ureteral stent placement. Allergies Allergy/AdvReac Type Severity Reaction Status Date / Time acetaminophen [From Vicodin] Allergy Swelling Unverified 11/11/18 18:01 of Lip/Tongue/Throat hydrocodone [From Vicodin] Allergy Swelling Unverified 11/11/18 18:01 of Lip/Tongue/Throat Home Medications Home Medications Medication Instructions Recorded Confirmed Type lisinopril 40 mg PO QAM 11/11/18 11/11/18 History metoprolol succinate 25 mg PO QAM 11/11/18 11/11/18 History Past Med/Surg History Medical History History of hysterectomy (Chronic) MGUS (monoclonal gammopathy of unknown significance) (Chronic) Hypertension (Chronic) Cervical stenosis of spinal canal (Chronic) Surgical History History of appendectomy (Chronic) Family History Sister Leukemia Mother Cancer Father Cancer Social History Feels Safe at Home: Yes Smoking Status: Never smoker Hx Alcohol Use: No Review of Systems Review of Systems: ROS per HPI, all other systems reviewed and negative Physical Exam Constitutional: + thin (Bitemporal wasting); no acute distress Vitals as noted Eyes: PERRL, conjunctivae normal, anicteric sclerae ENMT: external ear and nose normal, oropharynx normal Respiratory: normal respiratory effort, lungs clear to auscultation Cardiovascular: Rate/Rhythm: regular rate and regular rhythm Vessels: normal peripheral pulses Extremities: no edema Gastrointestinal (Abdomen): Inspection/Auscultation: abdomen normal to inspection and normal bowel sounds; abdomen not distended Percussion/Palpation: + abdomen tender (Mid to lower abdomen) and abdomen soft; no hepatosplenomegaly Musculoskeletal: no cyanosis or clubbing, extremities motor strength 5/5 Skin: no rashes, warm and dry Neurologic: PERRL, EOMI, accommodation nl, no face palsy, no dysarthria Psychiatric: A+Ox3, euthymic affect Results & Data Vital Signs (Past 12 Hours) Vital Signs Temp Pulse Pulse Resp BP BP Pulse Ox 11/11/18 19:30 72 21 165/74 H 11/11/18 19:01 72 22 167/82 H 95 11/11/18 19:00 72 21 95 11/11/18 18:30 70 21 164/75 H 94 11/11/18 17:30 72 20 151/79 H 97 11/11/18 16:28 37.1 C 84 16 126/78 95 Laboratory Results Short CBC 11/11/18 Range/Units 17:35 WBC 5.43 (4.8-10.8) K/uL Hgb 10.3 L (12.0-16.0) g/dL Hct 31.4 L (37-47) % Plt Count 231 (130-400) K/uL BMP 11/11/18 17:35 Sodium 139 Potassium 4.2 Chloride 103 Carbon Dioxide 28 BUN 33 H Creatinine 2.94 H Glucose 99 Calcium 9.5 Cardiac Enzymes 11/11/18 Range/Units 17:35 Troponin I < 0.015 (0-0.045) ng/ml Liver Function 11/11/18 Range/Units 17:35 Total Bilirubin 0.4 (0.2-1) mg/dl AST 15 (15-37) U/L ALT 7 L (12-78) U/L Alkaline Phosphatase 67 (45-117) U/L Albumin 2.5 L (3.4-5.0) gm/dl Urine 11/11/18 Range/Units 17:24 Urine Color Yellow Urine Appearance Turbid A (Clear) Urine pH 5.0 (4.5-7.5) Ur Specific [place] 1.013 (1.000-1.030) Urine Protein 2+ H (Negative) Urine Glucose (UA) Negative (Negative) Diagnostic Findings CT ABD/PELVIS IMPRESSION: 1. Large low and mid pelvic mass extending to the right as well as left obturator foramen.. This occupies the bulk of the mid to lower pelvic region.. 2. This large mass contain several calcifications and is of uncertain origin. 3. Mass creates bilateral renal obstructive change with bilateral hydroureteronephrosis. 4. Considerations must include a low pelvic neoplastic process of uncertain origin. 5. Differential considerations must also include the possibility of lymphoma. Code Status & VTE Plan Code Status Patient is a full code as per my discussion with her. VTE Prophylaxis Plan VTE Prophylaxis will be ordered: Yes Supervising Physician Co-Signing Physician Notes I have seen and examined the patient and have discussed the case with the provider above. I agree with the assessment and plan as stated with the following exceptions. 78 yo F with significant weight loss and constitutional symptoms, presenting after abnormal renal function returned on lab work performed recently. Workup revealed a large pelvic mass of uncertain etiology with mass effect on ureters and bladder. Urology is urgently stenting her tonight and will try to get path. Will consult Manager Domestic also for assistance. Originally seen by Neuro recently for 6th nerve palsy which has resolved, however, would consider discussing progress with Neuro and seeing if MRI still indicated. Waiting on this until renal function improves as contrast would be needed. On exam she is hemodynamically stable and afebrile and is in NAD. She is ill appearing and cachectic. Heart exam is normal and mucous membranes are dry. Lungs were clear to auscultation and there was no focal neuro deficit with noted generalized weakness. EOMI, and PERRL. Assessment: (1) MERRILL 2/2 acute bilateral obstructive uropathy, (2) pelvic mass concerning for neoplasm, (3) severe protein calorie malnutrition, (4) possible UTI, (5) anemia, (6) MGUS. Agree with plan as stated above. Appreciate [facility] Urology care of this patient by Dr. Hamilton. Will also consult BUFFING MACHINE OPERATOR SEMIAUTOMATIC for assistance with workup. Pt had a h/o cystocele with pessary placement in the past that was unsuccessful. Cont empiric Rocephin pending urine culture results. Consult carbon furnace operator for nutritional assessment. DO Lai
--- NOTE | 2018-11-11 23:03 | Operative Report ---
Post Operative Report Pre & Post Diagnosis Operation Date: 11/11/18 20:00 Pre-Op Diagnosis: 1. severe bilateral hydronephrosis with obstruction likely secondary to large irregular pelvic mass 2. MERRILL (acute kidney injury) Post-Op Diagnosis: 1. severe bilateral hydronephrosis with obstruction likely secondary to large irregular pelvic mass 2. MERRILL (acute kidney injury) Procedure Operation Date: 11/11/18 20:00 Actual Procedures p Cystoscopy, Bilateral Ureteral Stent Insertion with Bilateral Retrograde Pyelogram, Bilateral Dilation and TURBT Large (Bilateral) - Liang Hamilton II, DO Surgeon Liang Hamilton II, DO Regulatory Associate None Estimated Blood Loss 10 Findings Consistent with Post-Op Diagnosis Fixed pelvis with large mass palpable surrounding vagina, rectum, and bladder with large tumor throughout trigone and encasement of the bilateral Ureteral orifice. Specimens Tumor bladder trigone Drains 6 Fr Multilength on Left 4.8 Fr x 26 on right Anesthesia Type MAC Complications none Disposition Disposition: Recovery Room Indications Patient with severe pelvic mass and obstruction. Risks and benefits discusse.d Description of Procedure Patient was consented and brought back to the operating room. Patient was placed under anesthesia in the supine position and moved to the dorsal lithotomy position. Patient was prepped and draped in the regular sterile fashion. A time out was completed. A 30degree Cystoscope was placed into the bladder and the entire bladder was examined. The UO on the left was identified and found to be on the edge of the large mass in the trigone of the bladder. Exam under anesthesia was able to palpate a large fixed mass that was palpable outside of the rectum, vagina, and bladder. Only the bladder appeared to have direct extension. The left was cannulized with a catheter and a retrograde pyelogram was completed. due to displacement by the mass this was difficult and a larger catheter was used to dilate the distal ureter. A wire was then placed. With the wire in place, a 6 Fr Multilength Double J stent was placed. It was confirmed with fluoroscopy. The right UO was then searched for extensively. It appeared to be within tumor surround the area. Multiple images were taken of the area. What appeared to be the UO was discovered within this area. After multiple failed cannulization, the resection scope was selected. The tumor was resected. This was able to unmask the location of the ureter. An area of approx 7.1 cm was resected of ad ditional tumor. This was sent for pathologic analysis. A 5 Fr catheter was placed and a retrograde completed. A much larger obliterated section was discovered. This was then dilated. More severe hydro was noted on the right. A wire was able to be placed. A 4.8Fr x 26 Cm stent was then placed. This was repositioned. THe entire resection bed was inspected. No bleeding or other areas of concern. The entire area was inspected a final time. With the stents in place, the bladder was emptied. It was then filled a final time. The scope was removed. A 20 Fr silicon catheter was placed. The patient was cleaned, aroused from anesthesia, and transferred to the pacu in stable condition having tolerated the procedure well with no complications. I was present and participated in all aspects of the procedure. The patient will be monitored in the PACU until transferred. I attest to the content of the Intraoperative Record and any orders documented therein. Any exceptions are noted below.
[2018-11-11] MEDS ORDERED: ATROPINE SULFATE 0.1 MG/ML 10ML SYR IV PRN (23:29)
[2018-11-11] MEDS ORDERED: ePHEDrine sulfate 50 MG/ML AMP IV PRN (23:29)
--- NOTE | 2018-11-11 23:29 | Anesthesiology Progress Note ---
Date of Service November 11, 2018 Anesthesia Post Procedure Vital Signs Vital Signs: Temp Pulse Pulse Resp BP BP Pulse Ox 11/11/18 23:15 36.9 C 67 18 131/60 100 11/11/18 23:10 35.9 C L 64 16 141/59 H 100 11/11/18 23:05 35.7 C L 65 18 147/71 H 100 11/11/18 19:30 72 21 165/74 H 11/11/18 19:01 72 22 167/82 H 95 11/11/18 19:00 72 21 95 11/11/18 18:30 70 21 164/75 H 94 11/11/18 17:30 72 20 151/79 H 97 11/11/18 16:28 37.1 C 84 16 126/78 95 Transfer of Care Handoff Completed per policy Notes Mental Status: alert / awake / arousable and participated in evaluation Patient Amnestic to Procedure: Yes Nausea / Vomiting: adequately controlled Pain: adequately controlled Airway Patency, RR, SpO2: stable & adequate BP & HR: stable & adequate Hydration State: stable & adequate Anesthetic Complications: no major complications apparent
[2018-11-12] MEDS ORDERED: PATIENT'S HEIGHT AND/OR WEIGHT NEEDED SCH (00:30)
[2018-11-12] MEDS: SODIUM CHLORIDE 0.9% 1000ML 1,000 ML IV SCH ×3 (00:31→21:46)
--- NOTE | 2018-11-12 06:34 | Fluoroscopy Report ---
FL retrograde includes kub CLINICAL HISTORY: Pelvic masses with bilateral hydronephrosis. Stent placement. COMPARISON STUDY: CT scan dated 11/11/2018 FLUOROSCOPY TIME: 6 minutes and 51 seconds. NUMBER OF FLUOROSCOPIC IMAGES: 10 FINDINGS: Fluoroscopic spot images were acquired. There is retrograde catheterization of the left ure ter. There is moderate to marked left-sided hydronephrosis. A left-sided nephroureteral stent was ismael jen. Subsequently, the right ureter was catheterized in a retrograde fashion and a total pigtail righ t-sided nephroureteral stent was placed. There is dilatation of the right renal collecting system and ureter. IMPRESSION: 1. Bilateral hydronephrosis 2. Placement of bilateral nephroureteral stents. Electronically signed by: Toni Quiroz M.D. 11/12/2018 6:33 AM
[2018-11-12 07:13] LABS: Hematocrit (blood only) 28.7 % (37-47); Hemoglobin 9.1 g/dL (12.0-16.0); Mean Corpuscular Hemoglobin 25.5 pg (25-34); Mean Corpuscular Hgb Conc 31.7 g/dL (32-36); Mean Corpuscular Volume 80.4 fL (80-100); Mean Platelet Volume 9.3 fL (7.4-10.4); Platelet Count 215 K/uL (130-400); RDW Standard Deviation 50.2 fL (36.4-46.3); Red Blood Count 3.57 M/uL (4.2-5.4); White Blood Count 6.27 K/uL (4.8-10.8)
[2018-11-12 07:42] LABS: BUN Creatinine Ratio 13.6 (10-20); Calcium 9.1 mg/dl (8.5-10.1); Creatinine Clr Calc Pharmacy 16.6 ml/min; Est GFR (African American) 23.6; Est GFR (Non-African American) 20.4
[2018-11-12] MEDS: METOPROLOL SUCC 25MG EXT REL TAB PO SCH (08:48)
--- NOTE | 2018-11-12 09:58 | Urology Progress Note ---
Date of Service November 12, 2018 Assessment & Plan (1) Pelvic mass: POD #1 s/p TURBT, bilateral stent insertion. Pain controlled. Mcgraw draining concentrated vs. light hematuria, patent. Will continue to follow. (2) Acute bilateral obstructive uropathy: Subjective 78 YO female POD #1 s/p TURBT, bilateral ureteral stent insertion. Patient resting comfortably. Mild Mcgraw pain, not bothersome. No fevers/chills. No nausea/vomiting. Review of Systems Review of Systems: All systems reviewed & are unremarkable except as noted in HPI & below Physical Exam Physical Exam: NAD. Resp effort normal. No JVD. Abd soft/nontender. : Mcgraw in place, patent, draining concentrated vs light hematuria urine. Results & Data Vital Signs (Past 12 Hours) Vital Signs Temp Pulse Pulse Resp BP Pulse Ox 11/12/18 07:40 36.5 C 66 15 107/62 89 L 11/12/18 07:28 93 11/12/18 03:05 36.8 C 78 16 116/72 97 11/12/18 02:05 36.6 C 72 16 123/78 93 11/12/18 01:15 98 11/12/18 01:05 36.6 C 72 16 120/74 89 L 11/12/18 00:35 36.6 C 67 16 133/76 92 11/12/18 00:05 36.7 C 71 14 124/52 L 92 11/11/18 23:25 64 16 133/70 96 11/11/18 23:20 36.8 C 63 16 127/69 100 11/11/18 23:15 36.9 C 67 18 131/60 100 11/11/18 23:10 35.9 C L 64 16 141/59 H 100 11/11/18 23:05 35.7 C L 65 18 147/71 H 100
--- NOTE | 2018-11-12 12:16 | Anesthesiology Progress Note ---
Date of Service November 12, 2018 Anesthesia Post Procedure Vital Signs Vital Signs: Temp Pulse Pulse Pulse Resp BP BP 11/12/18 07:40 36.5 C 66 15 107/62 11/12/18 07:28 11/12/18 03:05 36.8 C 78 16 116/72 11/12/18 02:05 36.6 C 72 16 123/78 11/12/18 01:15 11/12/18 01:05 36.6 C 72 16 120/74 11/12/18 00:35 36.6 C 67 16 133/76 11/12/18 00:05 36.7 C 71 14 124/52 L 11/11/18 23:25 64 16 133/70 11/11/18 23:20 36.8 C 63 16 127/69 11/11/18 23:15 36.9 C 67 18 131/60 11/11/18 23:10 35.9 C L 64 16 141/59 H 11/11/18 23:05 35.7 C L 65 18 147/71 H 11/11/18 19:30 72 21 165/74 H 11/11/18 19:01 72 22 167/82 H 11/11/18 19:00 72 21 11/11/18 18:30 70 21 164/75 H 11/11/18 17:30 72 20 151/79 H 11/11/18 16:28 37.1 C 84 16 126/78 Pulse Ox 11/12/18 07:40 89 L 11/12/18 07:28 93 11/12/18 03:05 97 11/12/18 02:05 93 11/12/18 01:15 98 11/12/18 01:05 89 L 11/12/18 00:35 92 11/12/18 00:05 92 11/11/18 23:25 96 11/11/18 23:20 100 11/11/18 23:15 100 11/11/18 23:10 100 11/11/18 23:05 100 11/11/18 19:30 11/11/18 19:01 95 11/11/18 19:00 95 11/11/18 18:30 94 11/11/18 17:30 97 11/11/18 16:28 95 Pain Intensity Left Upper Foot: Pain Intensity: 3 Notes Mental Status: alert / awake / arousable Patient Amnestic to Procedure: Yes Nausea / Vomiting: adequately controlled Pain: adequately controlled Airway Patency, RR, SpO2: stable & adequate BP & HR: stable & adequate Hydration State: stable & adequate Anesthetic Complications: no major complications apparent and Pt Satisfied with anesthetic care
--- NOTE | 2018-11-12 13:21 | Progress Note ---
Date of Service November 12, 2018 Subjective EATING DISORDER SPECIALIST Consult Pt seen and examined Consult discussed with Dr Hoyt Recommendations made to Dr Hoyt Will dictated consult Results & Data Vital Signs (Past 12 Hours) Vital Signs Temp Pulse Pulse Resp BP Pulse Ox 11/12/18 07:40 36.5 C 66 15 107/62 89 L 11/12/18 07:28 93 11/12/18 03:05 36.8 C 78 16 116/72 97 11/12/18 02:05 36.6 C 72 16 123/78 93
--- NOTE | 2018-11-12 14:18 | Hospitalist Progress Note ---
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 This occupies the bulk of the mid to lower pelvic region. This large mass contain several calcifications and is of uncertain origin. Mass creates bilateral renal obstructive change with bilateral hydroureteronephrosis. Considerations must include a low pelvic neoplastic process of uncertain origin. Differential considerations must also include the possibility of lymphoma. --Retrograde Pyelogram:Bilateral hydronephrosis. Placement of bilateral nephroureteral stents. S/P TURBT B/L Nephroureteral stents on 11/11/18 --Pathology: Pending --Monitor renal function-- Cr:2.94>>2.25 --Appreciate Urology/Gynecology Input --Follows with Oncology --Will consider brain MRI once renal function improves (4) UTI (urinary tract infection): Complicated UTI Urine Cx: Group B beta strep Continue ceftriaxone Day #2 Follow urine culture (5) Hypertension: Relatively low BP Continue metoprolol hold lisinopril for now (6) DVT prophylaxis: SCDs Re: Minimal hematuria Subjective Patient is seen and examined at bedside Resting in bed comfortably Reports mild pain at catheter site Denies any chest pain, shortness of breath, dizziness, nausea Reports mild generalized abdominal pain with palpation Renal function slowly improving Urine culture growing group B strep Poor appetite at baseline Review of Systems Review of Systems: All systems reviewed & are unremarkable except as noted in HPI & below Physical Exam Physical Exam: Physical Exam: Vitals signs as noted above General Appearance:Thin, frail, no apparent distress Head: normocephalic, Atraumatic Eyes: normal inspection, EOMI Neck: supple, Trachea midline Respiratory/Chest: Normal breath sounds, CTA Cardiovascular: S1, S2, No murmur Abdomen/GI:Soft, Mild generalized tender, Bowel sounds present Extremities/Musculoskelatal:normal inspection, no edema Neurologic/Psych:AAOX3, grossly no focal neurological deficits Skin: normal color, warm Results & Data Vital Signs (Past 12 Hours) Vital Signs Temp Pulse Pulse Resp BP Pulse Ox 11/12/18 11:50 97 11/12/18 07:50 94 11/12/18 07:40 36.5 C 66 15 107/62 89 L 11/12/18 07:28 93 11/12/18 03:05 36.8 C 78 16 116/72 97 Laboratory Results Short CBC 11/11/18 11/12/18 Range/Units 17:35 06:45 WBC 5.43 6.27 (4.8-10.8) K/uL Hgb 10.3 L 9.1 L (12.0-16.0) g/dL Hct 31.4 L 28.7 L (37-47) % Plt Count 231 215 (130-400) K/uL BMP 11/11/18 11/12/18 17:35 06:45 Sodium 139 145 Potassium 4.2 4.0 Chloride 103 110 H Carbon Dioxide 28 27 BUN 33 H 31 H Creatinine 2.94 H 2.25 H D Glucose 99 70 Calcium 9.5 9.1 Cardiac Enzymes 11/11/18 Range/Units 17:35 Troponin I < 0.015 (0-0.045) ng/ml Liver Function 11/11/18 Range/Units 17:35 Total Bilirubin 0.4 (0.2-1) mg/dl AST 15 (15-37) U/L ALT 7 L (12-78) U/L Alkaline Phosphatase 67 (45-117) U/L Albumin 2.5 L (3.4-5.0) gm/dl Urine 11/11/18 Range/Units 17:24 Urine Color Yellow Urine Appearance Turbid A (Clear) Urine pH 5.0 (4.5-7.5) Ur Specific [place] 1.013 (1.000-1.030) Urine Protein 2+ H (Negative) Urine Glucose (UA) Negative (Negative)
--- NOTE | 2018-11-12 15:05 | History and Physical Report ---
DATE OF ADMISSION: 11/11/2018 HISTORY OF PRESENT ILLNESS: The patient is a 78-year-old who was seen in the Emergency Room on 11/11/2018 with complaints of abdominal pain, urinary frequency and weight loss over 8 months. She was seen and examined by ER physician and examination included blood work and CT scan. Diagnosis on that day was acute kidney infection, pelvic mass, bilateral hydronephrosis, and abnormal EKG. The patient was admitted and evaluated by hospitalist. A workup ended up with bilateral stent placement by urology. CT scan showed a large pelvic mass. MEDICAL LAB TECHNOLOGIST consult was therefore placed. I have had a chance to see patient and I have reviewed the H and P. Recently enough, the patient has had a total abdominal hysterectomy with bilateral salpingo-oophorectomy. Surgery was done about 20 years ago. PAST MEDICAL HISTORY: History of spinal/cervical stenosis. PAST SURGICAL HISTORY: Total abdominal hysterectomy with bilateral salpingo-oophorectomy. SOCIAL HISTORY: The patient lives at home with her spouse. She denies drug and tobacco or alcohol use. PHYSICAL EXAMINATION: GENERAL: Alert, awake, elderly white female in no acute distress. HEART: S1, S2, regular rhythm and rate. LUNGS: Clear to auscultation bilaterally. ABDOMEN: Tender to touch, appears to be a mass in the lower abdomen/pelvis. EXTREMITIES: No cyanosis, clubbing or edema. ASSESSMENT AND PLAN: A 78-year-old admitted for abdominal pain, urinary frequency and weight loss. Workup showed she had bilateral nephrosis, stents had been placed by urology on 11/11/2018. CT scan, however, showed a pelvic mass. Of interest is the fact that the patient has had total abdominal hysterectomy and bilateral salpingo-oophorectomy. The mass, therefore, is most likely not of MEDICAL LAB TECHNOLOGIST organ. Nonetheless, there is a pelvic mass. I have reviewed the findings with Dr. Stokes from radiology. He too agrees that this is not a MEDICAL LAB TECHNOLOGIST pelvic organ, mass is suspicious for lymphoma. Dr. Stokes's recommendation is that a biopsy of fine needle aspiration of the right iliac node be performed. I have discussed this with Dr. Keen who is the hospitalist for the patient. She will proceed with that order and hopefully once that biopsy is obtained, diagnosis of the mass can be ascertained. Thank you very much for the consult. Please let me know if there is anything else you will need from MEDICAL LAB TECHNOLOGIST. [facility]
[2018-11-12] MEDS: cefTRIAXone SODIUM 1,000 MG in DEXTROSE 5% 50 ML IV SCH (17:36)
[2018-11-12] MEDS ORDERED: TRAMADOL HCL 50 MG TABLET PO PRN (17:47)
[2018-11-13 06:50] LABS: Hematocrit (blood only) 28.8 % (37-47); Hemoglobin 9.1 g/dL (12.0-16.0); Mean Corpuscular Hemoglobin 25.6 pg (25-34); Mean Corpuscular Hgb Conc 31.6 g/dL (32-36); Mean Corpuscular Volume 80.9 fL (80-100); Mean Platelet Volume 9.3 fL (7.4-10.4); Platelet Count 202 K/uL (130-400); RDW Coefficient of Variation 17.2 % (11.5-14.5); RDW Standard Deviation 51.2 fL (36.4-46.3); Red Blood Count 3.56 M/uL (4.2-5.4); White Blood Count 4.76 K/uL (4.8-10.8)
[2018-11-13 07:32] LABS: BUN Creatinine Ratio 18.6 (10-20); Creatinine Clr Calc Pharmacy 28.7 ml/min; Est GFR (African American) 44.6; Est GFR (Non-African American) 38.5; Potassium 3.7 mmol/L (3.5-5.1)
[2018-11-13] MEDS: METOPROLOL SUCC 25MG EXT REL TAB PO SCH (09:04)
[2018-11-13] MEDS: SODIUM CHLORIDE 0.9% 1000ML 1,000 ML IV SCH (10:19)
--- NOTE | 2018-11-13 16:49 | Hospitalist Progress Note ---
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 This occupies the bulk of the mid to lower pelvic region. This large mass contain several calcifications and is of uncertain origin. Mass creates bilateral renal obstructive change with bilateral hydroureteronephrosis. Considerations must include a low pelvic neoplastic process of uncertain origin. Differential considerations must also include the possibility of lymphoma. --Retrograde Pyelogram:Bilateral hydronephrosis. Placement of bilateral nephroureteral stents. S/P TURBT B/L Nephroureteral stents on 11/11/18 --Pathology: Pending --Monitor renal function-- Cr:2.94>>2.25>>1.33 --Appreciate Urology/Gynecology Input --Follows with Oncology --Will consider brain MRI tomorrow if renal function continues to improve --Continue IV fluids (4) UTI (urinary tract infection): Complicated UTI Urine Cx: Group B beta strep Continue ceftriaxone Day #3 Follow up urine culture severe protein-calorie malnutrition Consider Mold Repairer Consult (5) Hypertension: BP stable Continue metoprolol hold lisinopril for now (6) DVT prophylaxis: SCDs Re: Mild Hematuria Subjective Patient is seen and examined at bedside Doing better today Renal function is improving Appetite improving Abdominal pain resolved Denies any chest pain, shortness of breath, dizziness, nausea Offers no complaints today Review of Systems Review of Systems: All systems reviewed & are unremarkable except as noted in HPI & below Physical Exam Physical Exam: Physical Exam: Vitals signs as noted above General Appearance:Thin, frail, no apparent distress Head: normocephalic, Atraumatic Eyes: normal inspection, EOMI Neck: supple, Trachea midline Respiratory/Chest: Normal breath sounds, CTA Cardiovascular: S1, S2, No murmur Abdomen/GI:Soft, non tender, Bowel sounds present Extremities/Musculoskelatal:normal inspection, no edema Neurologic/Psych:AAOX3, grossly no focal neurological deficits Skin: normal color, warm Results & Data Vital Signs (Past 12 Hours) Vital Signs Temp Pulse Pulse Resp BP Pulse Ox 11/13/18 15:21 37.1 C 86 16 130/68 95 11/13/18 09:03 76 122/76 11/13/18 07:39 36.6 C 73 16 153/81 H 92 Laboratory Results Short CBC 11/13/18 Range/Units 06:31 WBC 4.76 L (4.8-10.8) K/uL Hgb 9.1 L (12.0-16.0) g/dL Hct 28.8 L (37-47) % Plt Count 202 (130-400) K/uL BMP 11/13/18 06:31 Sodium 143 Potassium 3.7 Chloride 109 H Carbon Dioxide 29 BUN 25 H Creatinine 1.33 H D Glucose 89 Calcium 9.0
[2018-11-13] MEDS: cefTRIAXone SODIUM 1,000 MG in DEXTROSE 5% 50 ML IV SCH (18:13)
[2018-11-14] MEDS: SODIUM CHLORIDE 0.9% 1000ML 1,000 ML IV SCH ×2 (01:10→12:24)
[2018-11-14 07:19] LABS: Hematocrit (blood only) 28.7 % (37-47); Hemoglobin 9.1 g/dL (12.0-16.0); Mean Corpuscular Hemoglobin 25.3 pg (25-34); Mean Corpuscular Hgb Conc 31.7 g/dL (32-36); Mean Corpuscular Volume 79.7 fL (80-100); Mean Platelet Volume 9.1 fL (7.4-10.4); Platelet Count 221 K/uL (130-400); RDW Coefficient of Variation 17.1 % (11.5-14.5); RDW Standard Deviation 49.9 fL (36.4-46.3); White Blood Count 5.23 K/uL (4.8-10.8)
[2018-11-14 08:03] LABS: BUN Creatinine Ratio 23.2 (10-20); Calcium 8.8 mg/dl (8.5-10.1); Creatinine Clr Calc Pharmacy 41.9 ml/min; Est GFR (African American) 70.5; Est GFR (Non-African American) 60.9; Potassium 3.7 mmol/L (3.5-5.1)
[2018-11-14] MEDS: METOPROLOL SUCC 25MG EXT REL TAB PO SCH (08:28)
--- NOTE | 2018-11-14 11:58 | Urology Progress Note ---
Date of Service November 14, 2018 Assessment & Plan (1) Pelvic mass: POD #3 s/p TURBT, bilateral stent placement. Tolerating stents. Tolerating Mcgraw - will maintain. TURBT pathology pending. Renal function improving. Will continue to follow. (2) Acute bilateral obstructive uropathy: Subjective 78 YO female POD #3 s/p TURBT, bilateral stent placement. Patient is feeling well today. No abdominal pain. Mcgraw not bothersome. No fevers/chills. No nausea/vomiting. Review of Systems Review of Systems: Per HPI. Physical Exam Physical Exam: WN/WD NAD. Resp effort normal. No JVD. Abd soft/nontender. : Mcgraw patent, draining clear yellow urine. A&Ox3 appropriate affect. Results & Data Vital Signs (Past 12 Hours) Vital Signs Pulse BP 11/14/18 08:27 76 153/78 H
--- NOTE | 2018-11-14 12:10 | Hospitalist Progress Note ---
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 This occupies the bulk of the mid to lower pelvic region. This large mass contain several calcifications and is of uncertain origin. Mass creates bilateral renal obstructive change with bilateral hydroureteronephrosis. Considerations must include a low pelvic neoplastic process of uncertain origin. Differential considerations must also include the possibility of lymphoma. --Retrograde Pyelogram:Bilateral hydronephrosis. Placement of bilateral nephroureteral stents. S/P TURBT B/L Nephroureteral stents on 11/11/18 --Pathology: Pending --Monitor renal function-- Cr:2.94>>2.25>>1.33>>0.9 --Follows with Oncology --MRI today --Continue IV fluids (4) UTI (urinary tract infection): Complicated UTI Urine Cx: Group B beta strep Continue ceftriaxone Day #4 Follow up urine culture severe protein-calorie malnutrition (5) Hypertension: BP stable Continue metoprolol hold lisinopril for now (6) DVT prophylaxis: SCDs Re: Mild Hematuria ROS-No Headache, No Visual Changes, No Nausea, No Vomiting, No Fever, No Chills, No Neck Pain or Stiffness, No Chest Pain, No Palpitations, No SOB, No JEFFERSON, No Cough, No Sputum, No Wheezing, No Abdominal Pain, No Diarrhea, No Hematemesis, No Hemoptysis, No Unexpected Weight Loss, No Flank pain, No Melena, No Hematochezia, No Frequency, No Urgency, No Burning, No Hematuria, No Rashes, No Diaphoresis. Appetite is Normal Physical Exam Gen-AAO x 3, NAD, Afebrile Head-NCAT, EOMI, PERRLA, Anicteric Sclera, No Posterior Pharyngeal Erythema Neck-Supple, No JVD, No Thyromegaly, No Masses, No LAD, No Bruits Lungs-Clear to Auscultation Bilaterally, No Rales, No Rhonchi, No Wheezing, No Crepitus Chest-No S4, +S1, +S2, No S3, No Murmurs, No Rubs, No Gallops, No Ectopy Abdomen-Soft, Bowel Sounds Present, Non Tender, Non Distended, No Hepatomegaly, No Splenomegaly, No Palpable Masses, No Rebound, No Rigidity, No Guarding Musculoskeletal-Full Range of Motion Bilaterally, No CVAT Extremities-No Cyanosis, No Clubbing, No Edema Nuero-Cranial Nerves II-XII grossly intact, Motor WNL, DTRs WNL, Strength WNL, Non Focal Psych-Normal Mood Subjective 78 YO female POD #3 s/p TURBT, bilateral stent placement. Patient is feeling well today. No abdominal pain. Mcgraw not bothersome. No fevers/chills. No nausea/vomiting. Results & Data Vital Signs (Past 12 Hours) Vital Signs Pulse BP 11/14/19 08:27 76 153/78 H labs checked
[2018-11-14] MEDS ORDERED: GADOBUTROL 65ML VIAL IV PRN (13:14)
--- NOTE | 2018-11-14 13:40 | Magnetic Resonance Report ---
MRI OF THE BRAIN WITHOUT AND WITH IV CONTRAST CLINICAL HISTORY: Malignancy, metastatic workup. COMPARISON STUDY: No previous studies for comparison. TECHNIQUE: MRI of the brain was performed from the vertex to the skull base utilizing various T1 and T2 weighted sequences. Following the IV administration of 5.5 mL of Gadavist contrast, additional enh anced images were obtained. FINDINGS: Sagittal T1, axial diffusion, proton density and T2 weighted axial, coronal FLAIR, and pre and post a xial T1-weighted images were acquired. These were supplemented with post gadolinium coronal T1 weight ed images. No intra or extra-axial mass lesions are visualized. Axial diffusion-weighted images reveal no evidence of acute or subacute infarction. There is no evidence of ventricular dilatation. Proton density T2-weighted and FLAIR images reveal moderately extensive foci of increased T2 signal w ithin the white matter, likely on a small vessel basis. There are no abnormal flow voids. There is no evidence of pathologic enhancement. IMPRESSION: 1. No evidence of intracranial metastasis 2. No evidence of acute or subacute infarction 3. Extensive foci of increased T2 signal within the white matter, statistically on a small vessel isc hemic basis Electronically signed by: Toni Quiroz M.D. 11/14/2018 1:38 PM
[2018-11-14] MEDS: cefTRIAXone SODIUM 1,000 MG in DEXTROSE 5% 50 ML IV SCH (18:10)
[2018-11-15] MEDS: SODIUM CHLORIDE 0.9% 1000ML 1,000 ML IV SCH ×2 (00:26→12:03)
[2018-11-15 07:37] LABS: Hemoglobin 8.7 g/dL (12.0-16.0); Mean Corpuscular Hemoglobin 25.5 pg (25-34); Mean Corpuscular Hgb Conc 32.2 g/dL (32-36); Mean Corpuscular Volume 79.2 fL (80-100); Mean Platelet Volume 9.1 fL (7.4-10.4); Platelet Count 226 K/uL (130-400); RDW Coefficient of Variation 17.1 % (11.5-14.5); RDW Standard Deviation 49.6 fL (36.4-46.3); Red Blood Count 3.41 M/uL (4.2-5.4); White Blood Count 4.84 K/uL (4.8-10.8)
[2018-11-15] MEDS: METOPROLOL SUCC 25MG EXT REL TAB PO SCH (08:09)
[2018-11-15 08:18] LABS: BUN Creatinine Ratio 22.1 (10-20); Calcium 8.5 mg/dl (8.5-10.1); Creatinine Clr Calc Pharmacy 53.7 ml/min; Est GFR (African American) 95.2; Est GFR (Non-African American) 82.2; Potassium 3.3 mmol/L (3.5-5.1)
--- NOTE | 2018-11-15 12:52 | Discharge Summary ---
Date of Service November 15, 2018 Admission HPI Per Admitting Provider 78-year-old female who was referred to the ED by her outpatient neurologist for evaluation of worsening renal function. Over the past couple months, patient has been being evaluated as an outpatient for weight loss. Initially, she was seen by her PCP who ordered a CT of the abdomen that showed an abnormality in the stomach. Patient was referred for EGD and colonoscopy which have not been completed yet. She was also found to have findings of MGUS on labs and has been following with hematology. 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 Labs were obtained on 11/09 that showed a creatinine of 1.8. Previously was 0.8 on 10/01. Patient's outpatient neurologist called the patient today and referred her to the ER for further evaluation. Patient reports a 50 pound weight loss since last February, with 20 of those pounds being in the past month. She reports early satiety. Over the past couple of days, she has noted urinary frequency. Today, she reports abdominal pain with bending over. She also has chronic back pain in which she has been seeing pain management and Dr. Shultz. She was given a prescription for gabapentin which caused double vision and therefore she stopped this medication. The double vision has since resolved. She denies chest pain or shortness of breath. No lightheadedness, dizziness, diaphoresis, syncopal events. No fevers or chills. In the ED, creatinine is 2.9 and she is mildly anemic with H/H 10.3/31.4. CT ABD/pelvis shows large low and mid pelvic mass extending to the right as well as left obturator foramen. Mass creates bilateral renal obstructive change with bilateral hydroureteronephrosis. Urology was contacted by the ED and patient will be going to the OR [facility] for ureteral stent placement. Admission Exam Per Admitting Provider GENERAL: Alert, awake, elderly white female in no acute distress. HEART: S1, S2, regular rhythm and rate. LUNGS: Clear to auscultation bilaterally. ABDOMEN: Tender to touch, appears to be a mass in the lower abdomen/pelvis. EXTREMITIES: No cyanosis, clubbing or edema Principal Diagnosis Large B Cell Lymphoma Pelvic Mass UTI MERRILL HTN MGUS Discharge Exam ROS-No Headache, No Visual Changes, No Nausea, No Vomiting, No Fever, No Chills, No Neck Pain or Stiffness, No Chest Pain, No Palpitations, No SOB, No JEFFERSON, No Cough, No Sputum, No Wheezing, No Abdominal Pain, No Diarrhea, No Hematemesis, No Hemoptysis, No Unexpected Weight Loss, No Flank pain, No Melena, No Hematochezia, No Frequency, No Urgency, No Burning, No Hematuria, No Rashes, No Diaphoresis. Appetite is Normal Physical Exam Gen-AAO x 3, NAD, Afebrile Head-NCAT, EOMI, PERRLA, Anicteric Sclera, No Posterior Pharyngeal Erythema Neck-Supple, No JVD, No Thyromegaly, No Masses, No LAD, No Bruits Lungs-Clear to Auscultation Bilaterally, No Rales, No Rhonchi, No Wheezing, No Crepitus Chest-No S4, +S1, +S2, No S3, No Murmurs, No Rubs, No Gallops, No Ectopy Abdomen-Soft, Bowel Sounds Present, Non Tender, Non Distended, No Hepatomegaly, No Splenomegaly, No Palpable Masses, No Rebound, No Rigidity, No Guarding Musculoskeletal-Full Range of Motion Bilaterally, No CVAT Extremities-No Cyanosis, No Clubbing, No Edema Nuero-Cranial Nerves II-XII grossly intact, Motor WNL, DTRs WNL, Strength WNL, Non Focal Psych-Normal Mood Discharge Data Allergies Allergy/AdvReac Type Severity Reaction Status Date / Time acetaminophen [From Vicodin] Allergy Swelling Unverified 11/11/18 18:01 of Lip/Tongue/Throat hydrocodone [From Vicodin] Allergy Swelling Unverified 11/11/18 18:01 of Lip/Tongue/Throat Consultations 11/11/18 18:42 ED Decision to Admit Stat 11/12/18 00:13 Consult Urology Routine 11/12/18 07:00 Consult Gynecology Routine Procedures Performed Operation Date: 11/11/18 20:00 Actual Procedures p Cystoscopy, Bilateral Ureteral Stent Insertion with Bilateral Retrograde Pyelogram, Bilateral Dilation and TURBT(Bilateral) - Liang Hamilton II, DO Biopsy +Large B cell Lymphoma Current Diagnoses Essential (primary) hypertension (11/11/18) Obstructive and reflux uropathy, unspecified (11/11/18) Acute kidney failure, unspecified (11/11/18) Urinary tract infection, site not specified (11/11/18) Intra-abdominal and pelvic swelling, mass and lump, unspecified site (11/11/18) Encounter for prophylactic measures, unspecified (11/11/18) Allergies acetaminophen [From Vicodin] Allergy (Unverified 11/11/18 18:01) Swelling of Lip/Tongue/Throat hydrocodone [From Vicodin] Allergy (Unverified 11/11/18 18:01) Swelling of Lip/Tongue/Throat Height/Weight/Isolation Height 5 ft 2.5 in Weight 59.2 kg Chemistry 11/14/18 11/15/18 06:46 07:25 Sodium 141 141 Potassium 3.7 3.3 L Chloride 108 H 108 H Carbon Dioxide 28 26 Anion Gap 6.0 7.0 BUN 21 H 16 Creatinine 0.91 D 0.71 Glucose 91 93 Microbiology 11/11/18 17:24 Urine,Indwelling Cath Urine Culture - Final More than three types of organisms present, all high counts mixed probable skin shannon - No further identifications or sensitivities to follow. Ordered Studies 11/11/18 FL retrograde includes kub Routine 11/11/18 16:49 CT abd pelvis wo con Stat 11/14/18 12:11 MR brain wo/w con Routine Hospital Course (1) MERRILL (acute kidney injury): (2) Acute bilateral obstructive uropathy: (3) Pelvic mass: Obstructive uropathy Pelvic mass: possible/suspected Malignant neoplasm of pelvis Acute kidney injury --CT ABD:Large low and mid pelvic mass extending to the right as well as left obturator foramen.. This occupies the bulk of the mid to lower pelvic region. This large mass contain several calcifications and is of uncertain origin. Mass creates bilateral renal obstructive change with bilateral hydroureteronephrosis. Considerations must include a low pelvic neoplastic process of uncertain origin. Differential considerations must also include the possibility of lymphoma. --Retrograde Pyelogram:Bilateral hydronephrosis. Placement of bilateral nephroureteral stents. S/P TURBT B/L Nephroureteral stents on 11/11/18 --Pathology: Large B Cell Lymphoma --Follows with Oncology (4) UTI (urinary tract infection): Complicated UTI Urine Cx: Group B beta strep DC on Ceftin x 4 more days Follow up urine culture severe protein-calorie malnutrition (5) Hypertension: BP stable Continue metoprolol hold lisinopril for now (6) DVT prophylaxis: SCDs Re: Mild Hematuria ROS-No Headache, No Visual Changes, No Nausea, No Vomiting, No Fever, No Chills, No Neck Pain or Stiffness, No Chest Pain, No Palpitations, No SOB, No JEFFERSON, No Cough, No Sputum, No Wheezing, No Abdominal Pain, No Diarrhea, No Hematemesis, No Hemoptysis, No Unexpected Weight Loss, No Flank pain, No Melena, No Hematochezia, No Frequency, No Urgency, No Burning, No Hematuria, No Rashes, No Diaphoresis. Appetite is Normal Physical Exam Gen-AAO x 3, NAD, Afebrile Head-NCAT, EOMI, PERRLA, Anicteric Sclera, No Posterior Pharyngeal Erythema Neck-Supple, No JVD, No Thyromegaly, No Masses, No LAD, No Bruits Lungs-Clear to Auscultation Bilaterally, No Rales, No Rhonchi, No Wheezing, No Crepitus Chest-No S4, +S1, +S2, No S3, No Murmurs, No Rubs, No Gallops, No Ectopy Abdomen-Soft, Bowel Sounds Present, Non Tender, Non Distended, No Hepatomegaly, No Splenomegaly, No Palpable Masses, No Rebound, No Rigidity, No Guarding Musculoskeletal-Full Range of Motion Bilaterally, No CVAT Extremities-No Cyanosis, No Clubbing, No Edema Nuero-Cranial Nerves II-XII grossly intact, Motor WNL, DTRs WNL, Strength WNL, Non Focal Psych-Normal Mood Total Time Total Time Spent Total Time Spent (In Minutes): 50 mins Total Time Includes: Examination of the Patient, Discharge Planning, Medication Reconciliation and Communication With Other Providers Discharge Plan Discharge Items Patient Disposition: Transfer [facility]irement Fac Reason For Visit: MERRILL, PELVIC MASS Discharge Diagnosis: Large B Cell Lymphoma Pelvic Mass UTI MERRILL HTN MGUS Discharge Goals: Improve disease control and Therapeutic intervention Activity: Resume your previous activity Lifting: Gradually increase as tolerated Bathing: No limitations Sexual Activity: When tolerated Exercise/Sports: Gradually increase as tolerated Weightbearing: Full weightbearing Weightbearing Comment: c FWW Non-emergency contact: Primary Care Provider, Surgeon and Oncologist Call non-emergency contact if: you have any medication questions Follow-up/Referrals: Natacha King DO [Primary Care Provider] - 11/22/18 1:30 pm (Will f/u c Dr Sharpe (Heme/Onc) for Large B Cell Lymphoma) Huy Sharpe MD [Hospitalist] - (First Opening) Diet: Regular Addtl Provider Instructions: f/u with , Heme/Onc, and PCP Prescriptions: New cefdinir 300 mg capsule 300 mg PO BID 5 Days Qty: 10 RF: 0 Continued metoprolol succinate 25 mg tablet extended release 24 hr 25 mg PO QAM RF: 0 Discontinued lisinopril 40 mg tablet 40 mg PO QAM RF: 0 Stand-Alone Forms: [facility] Discharge Orders: Discharge Order (Routine); Ordered 11/15/18 Ordered By: John Casas Skilled Items Patient informed of condition?: Yes DNR: No Discharge Level of Care: Skilled Communicable Disease: No Discharge Prognosis: Deteriorating Admission Data Admit Date/Time: 11/11/18 20:16 Attending Provider: John Casas Admit Provider: Olive Hoyt Primary Care Provider: Natacha King Other Providers: Olive Hoyt ; Liang Hamilton II ; Osmani Rothman ; Neyda Gordillo Service: Surgical Services Other Pending Studies at Discharge: No
== END 2018-11-15 16:08 | DRG 823 ==
LOC: ED 16:25 → 3W 18:51 → OR 20:15 → 3W 20:16 → SUATTDRO 20:16

== ENCOUNTER 2018-12-17 14:42 | Inpatient (IN) ==
[2018-12-17] MEDS ORDERED: ONDANSETRON INJ 2 MG/ML 2 ML VIAL IV STA (15:28)
[2018-12-17] MEDS ORDERED: fentaNYL citrate 100 MCG/2 ML VIAL IV STA (15:28)
[2018-12-17] MEDS ORDERED: SODIUM CHLORIDE 0.9% 1000ML 2,000 ML IV SCH (15:30)
[2018-12-17 15:37] LABS: iSTAT Hemoglobin 11.9 g/dl (12.0-16.0); iSTAT Ionized Calcium 1.29 mmol/l (1.12-1.32); iSTAT Potassium 3.6 mEq/L (3.3-5.0)
[2018-12-17 15:43] LABS: Hematocrit (blood only) 35.1 % (37-47); Hemoglobin 11.1 g/dL (12.0-16.0); Mean Corpuscular Hemoglobin 26.1 pg (25-34); Mean Corpuscular Hgb Conc 31.6 g/dL (32-36); Mean Corpuscular Volume 82.4 fL (80-100); Mean Platelet Volume 9.3 fL (7.4-10.4); Platelet Count 395 K/uL (130-400); RDW Coefficient of Variation 17.9 % (11.5-14.5); Red Blood Count 4.26 M/uL (4.2-5.4); White Blood Count 12.82 K/uL (4.8-10.8)
[2018-12-17 15:51] LABS: Alanine Aminotransferase 11 U/L (12-78); Albumin Level 2.7 gm/dl (3.4-5.0); Aspartate Aminotransferase 21 U/L (15-37); BUN Creatinine Ratio 19.1 (10-20); Blood Urea Nitrogen 23 mg/dl (7-18); Calcium 9.9 mg/dl (8.5-10.1); Carbon Dioxide 21 mmol/L (21-32); Chloride 107 mmol/L (98-107); Est GFR (Non-African American) 43.1; Glucose 116 mg/dl (70-99); Potassium 3.6 mmol/L (3.5-5.1); Sodium 140 mmol/L (136-145)
[2018-12-17 15:56] LABS: Albumin Globulin Ratio 0.6 (0.9-2); Alkaline Phosphatase 127 U/L (45-117); Bilirubin,Total 1.3 mg/dl (0.2-1); Globulin 4.8 gm/dl (2.5-4.0); Total Protein 7.5 gm/dl (6.4-8.2); Troponin I < 0.015 ng/ml (0-0.045)
[2018-12-17 16:11] LABS: INR 1.1 (0.9-1.1); Prothrombin Time 11.2 Seconds (9.0-12.0)
[2018-12-17 16:13] LABS: Basophils # (auto) 0.04 K/uL (0-0.2); Basophils % (auto) 0.3 %; Eosinophils % (auto) 0.8 %; Immature Granulocytes # (auto) 0.03 K/uL (0.00-0.02); Immature Granulocytes % (auto) 0.2 %; Lymphocytes # (auto) 1.94 K/uL (1.2-3.4); Lymphocytes % (auto) 15.1 %; Neutrophils # (auto) 9.81 K/uL (1.4-6.5); Neutrophils % (auto) 76.6 %
[2018-12-17] MEDS ORDERED: IOVERSOL 100ml IV PRN (16:17)
--- NOTE | 2018-12-17 16:29 | CT Scan Report ---
CT head/brain wo con CLINICAL HISTORY: 78 years-old Female with fall hypotension. Acute fall with hypotension TECHNIQUE: Multiple axial CT images of the head were obtained without contrast. A dose lowering tech nique was utilized adhering to the principles of ALARA. COMPARISON: CT cervical spine of same day FINDINGS: Motion degraded exam. No acute intracranial hemorrhage, midline shift, intracranial mass, hydrocephal us, territorial ischemia or abnormal extra-axial collection. Age-related involutional changes. Patchy white matter hypodensities suggest chronic microvascular ischemic disease. The calvarium is intact. The paranasal sinuses, mastoid air cells, and middle ear cavities are clear . IMPRESSION: No acute intracranial abnormality or calvarial fracture. The above report was generated using voice recognition software. It may contain grammatical, syntax o r spelling errors. Electronically signed by: Devin Burt M.D. 12/17/2018 4:28 PM
--- NOTE | 2018-12-17 16:31 | CT Scan Report ---
CT chest w con CLINICAL HISTORY: 78 years-old Female presenting with fall cr 0.6. TECHNIQUE: Multidetector CT imaging of the chest was performed after the administration of intravenou s contrast. IV contrast: 90 mL of Optiray 320. One or more dose lowering techniques were used consist ent with the principles of ALARA (as low as reasonably achievable), including automatic exposure cont rol, mA or kV adjustment to individual patient size, and/or use of iterative reconstruction. COMPARISON: None. CT DOSE (mGy.cm): The estimated cumulative dose is 1468.86 mGy.cm. FINDINGS: Operation Supervisor topogram: Bilateral ureteral stents in place. Cervical fusion hardware. Soft tissues: Normal thyroid and thoracic inlet. No axillary, supraclavicular, mediastinal, or hilar lymphadenopathy. Normal aorta. Mild multichamber enlargement of the heart. No pericardial or pleural effusion. Moderate hiatal hernia. Lungs and airways: No pneumothorax. Obstruction of left lower lobe bronchi due to a central left infr ahilar mass measuring 5.1 cm in diameter. Respiratory motion artifact degrades evaluation of lung par enchyma. Pulmonary arteries are not significantly enlarged relative to adjacent bronchi. No interlobu lar septal thickening. Minimal dependent changes likely atelectasis. Musculoskeletal: Anterior cervical fusion hardware. No acute osseous injury. Multilevel degenerative changes of the thoracic spine. IMPRESSION: 1. Motion artifact degrades evaluation and moderately limits diagnostic sensitivity the exam. Allowi ng for this, no acute intrathoracic injury. 2. 5.1 cm left lower lobe central infrahilar mass highly concerning for primary bronchogenic neoplas m. 3. Mild cardiomegaly. The report will be called/faxed according to standard departmental protocol. Electronically signed by: Danny Griffith M.D. 12/17/2018 4:29 PM
--- NOTE | 2018-12-17 16:36 | CT Scan Report ---
CT cervical spine wo con CLINICAL HISTORY: 78 years-old Female with fall. Acute neck injury status post fall COMPARISON: CT head and CT chest of same day. TECHNIQUE: Multiple axial CT images of the cervical spine were obtained without contrast. A dose low ering technique was utilized adhering to the principles of ALARA. FINDINGS: Left infrahilar mass noted on the metals sales representative localizer images, better described on CT chest of same day. Anterior plate and screw fusion hardware noted at C4-C7. Corpectomy changes at C5. Incomplete bony fu manfred at C5-C6 and C6-C7. Demineralized appearance of the bones. Multilevel disc space narrowing with uncovertebral spurring and facet arthrosis. No acute cervical spine fracture or subluxation identifie d. Evaluation of the central canal and neuroforamina is better assessed by MRI. Multilevel foraminal narrowing is noted. No pneumothorax. Soft tissues are unremarkable. IMPRESSION: No acute cervical spine fracture or subluxation. The above report was generated using voice recognition software. It may contain grammatical, syntax o r spelling errors. Electronically signed by: Devin Burt M.D. 12/17/2018 4:35 PM
--- NOTE | 2018-12-17 16:40 | CT Scan Report ---
CT abd pelvis IV con only CLINICAL HISTORY: 78 years-old Female presenting with fall hypotension urinating blood. TECHNIQUE: Multidetector CT of the abdomen and pelvis was performed after the administration of intra venous contrast. IV contrast: 93 mL of Optiray 320. One or more dose lowering techniques were used co nsistent with the principles of ALARA (as low as reasonably achievable), including automatic exposure control, mA or kV adjustment to individual patient size, and/or use of iterative reconstruction. COMPARISON: 11/11/2018. CT DOSE (mGy.cm): The estimated cumulative dose is 1468.83. FINDINGS: Chemical Radiation Technician topogram: Bilateral ureteral stents. Anterior cervical fusion hardware. Image quality is degraded by positioning of the arms over the abdomen and motion artifact. This moder ately limits diagnostic sensitivity the exam. Lung bases: Multichamber enlargement of the heart. No pericardial or pleural effusion. Left infrahila r mass adjacent to the moderate hiatal hernia. Liver: Normal morphology. No liver lesion. Patent hepatic vasculature. Biliary: No intrahepatic or extrahepatic biliary ductal dilatation. Normal gallbladder. Pancreas: Mild parenchymal atrophy. A portion of the pancreas may be contained within the moderate hi atal hernia. Spleen: Normal. Adrenal glands: Normal. Kidneys and ureters: Bilateral ureteral stents remain in place. Distention of the urinary collecting systems has slightly decreased in from prior as the stents were not previously present. Multifocal sc arring and atrophy in the right kidney. Underlying prominent cyst at the lower pole of the left kidne y. No nephrolithiasis. Bilateral urothelial thickening. No obstructing masses in the lower pelvis. Bladder: A Mcgraw catheter is in place. The urinary bladder is completely decompressed. Pelvic organs: Nonvisualization due to the large pelvic masses. Bowel: The rectum is severely narrowed due to the large extraperitoneal pelvic masses. There is mild wall thickening of the sigmoid colon new from prior exam. Fluid noted in the colon suggesting a diarr heal state. Wall thickening of the cecum also noted. There is wall thickening of the terminal ileum s uggested. No bowel obstruction. Moderate anomaly sliding type hiatal hernia. Peritoneal cavity: Small free fluid in the superior pelvis. No free intraperitoneal gas. Diffuse mese nteric fat infiltration. Interval increase in size of the extraperitoneal pelvic masses with greater extension of soft tissue outside of the pelvis along the posterior wall of the right acetabulum and w ith greater surrounding mass effect and convexity of margins. Lymph nodes: The pelvic masses may represent génesis conglomerations. No discrete lymphadenopathy is ev ident. Vasculature: Transiting vasculature in the external iliac regions are grossly patent though stenosis or occlusion may be present and internal iliac regions. Aorta and IVC remain patent. Abdominal wall: Diffuse body wall edema. Musculoskeletal: Degenerative changes of the spine. No displaced fracture is evident allowing for the severity of motion artifact degradation. Osteopenia. IMPRESSION: Image quality is degraded by positioning of the arms over the abdomen and motion artifact. This moder ately limits diagnostic sensitivity the exam. 1. No acute intra-abdominal injury. No gross evidence of a displaced fracture. 2. Interval worsening of extrapleural pelvic masses concerning for progression of disease, likely ly mphoma. Greater surrounding soft tissue invasion. These masses results in obstructive uropathy, howev er, bilateral ureteral stents have been placed with decreased severity of hydronephrosis. 3. Interval development of an enterocolitis, likely infectious. 4. Left infrahilar mass in the left lower lobe concerning for neoplasm, either primary bronchogenic or related to lymphoma. Electronically signed by: Danny Griffith M.D. 12/17/2018 4:38 PM
[2018-12-17 17:11] LABS: Appearance Urine Turbid (Clear); Blood Urine 3+ (Negative); Color Urine Red; Glucose Urine UA Negative (Negative); Ketones Urine Trace (Negative); Leukocyte Esterase Urine 2+ (Negative); Nitrite Urine Positive (Negative); Protein Urine 3+ (Negative); Specific Gravity Urine 1.015 (1.000-1.030); Urobilinogen Urine Negative (Negative); pH Urine 6.5 (4.5-7.5)
[2018-12-17 17:25] LABS: Bilirubin Urine Negative (Negative); Ictotest Urine Negative (Negative)
[2018-12-17 17:27] LABS: Bacteria Urine 1+ (Negative); RBC Urine >30 /hpf (0-4); WBC Urine >30 /hpf (0-5)
[2018-12-17] MEDS ORDERED: PIPERACILL/TAZOBAC CONSULT ACTIVE PRN ×2 (18:41→21:44)
[2018-12-17] MEDS ORDERED: PIPERACILLIN/TAZOBACTAM 3.375 GM/115 ML BAG IV STA (18:49)
--- NOTE | 2018-12-17 19:36 | History & Physical Report ---
Date of Service December 17, 2018 Assessment & Plan (1) Hypotension: Initial blood pressure upon presentation to the ED was 68/53. Received fluid resuscitation with 2 L of normal saline solution with improvement of hemodynamics. Hypotension may be secondary to dehydration from several days of severe diarrhea. However, must consider sepsis. Meets criteria for SIRS. Possible sources of infection would include urinary tract infection and infectious colitis. Stool negative for C. difficile per PCR. Stool culture for routine enteric pathogens pending. Check blood cultures and urine culture. Check lactate. Empiric broad-spectrum antibiotic coverage with intravenous piperacillin/tazobactam pending culture results. (2) Diarrhea: Experiencing diarrhea for the past several days. CT of abdomen and pelvis demonstrates enterocolitis. Recently took ciprofloxacin for cystoscopy. However, stool C. difficile PCR negative. Stool culture for routine enteric pathogens ordered. Consider repeating C. difficile testing if no improvement of diarrhea in a few days. (3) Abnormal urinalysis: Gross hematuria via Mcgraw catheter noted. Has bilateral ureteral stents for bilateral hydronephrosis from pelvic mass. Urinalysis shows 3+ protein, 3+ blood, positive nitrates, positive leukocyte esterase, greater than 30 RBCs, greater than 30 WBCs, 5-10 epithelial cells, 1+ bacteria. Probable urinary tract infection. Intravenous piperacillin/tazobactam pending culture results. (4) Altered mental status: Family has noted confusion. Patient unable to state the day of the week with the current president in the ED. Easily distracted. Probable delirium /metabolic encephalopathy from acute illness. Avoid anticholinergic medications and other medications with MILL ST[employer]ILER side effects whenever possible. (5) Hypertension: History of hypertension, treated with metoprolol and lisinopril. Hold antihypertensive medications in light of hypotension. Follow blood pressures and reinitiate medications as necessary. (6) Lymphoma: Recently found to have a large pelvic mass. Cystoscopy performed for bilateral ureteral stent placement because of bilateral hydronephrosis with acute kidney injury. Pelvic mass extended to the urinary bladder and biopsy was performed which demonstrated a diffuse large B-cell lymphoma. Seen in consultation by Dr. Sharpe. Chemotherapy was planned for this week, but will have to be postponed until her acute problems have stabilized and her functional status permits. (7) Abnormal CT scan, chest: CT of chest demonstrates a 5 cm left lower lobe mass. Mass may be secondary to lymphoma or, perhaps, another malignancy. Further evaluation/management per Hematology/Oncology. (8) Severe malnutrition: Cachectic. 20-30 lb wt loss. Severe malnutrition due to underlying malignancy. Consult [employer]. (9) DVT prophylaxis: No anticoagulants because of gross hematuria. SCDs once DVT of lower extremities ruled out. Ambulate as able. (10) Discharge planning issues: Discharge disposition to be determined. Family Medicine follow-up with Dr. Natacha King. Hematology/oncology follow-up with Dr. Sharpe. History of Present Illness Chief Complaint: weakness, fall Primary Care Provider: Natacha King, 78-year-old female followed by Dr. Natacha Young for Family Medicine and Dr. Sharpe for Hematology/Oncology. Admitted to [facility] on 11/11/2018 with acute kidney injury. Found to have bilateral hydronephrosis secondary to large pelvic mass. Cystoscopy with bilateral ureteral stent placement performed by Dr. Hamilton. Biopsy from cystoscopy demonstrated a diffuse large B-cell lymphoma. Patient was discharged to [facility] for skilled care and then discharged home after about 1 week. Seen in clinic by Dr. Sharpe for Hematology/Oncology consultation. Arrangements were being made for chemotherapy which was to be initiated this week. Over the last several days, patient has been having watery diarrhea several times a day. She is been anorexic and has some nausea, but no emesis. Experiencing diffuse abdominal discomfort. No apparent melena or hematochezia. No fever or chills. Family notes some confusion. Fell this morning because of generalized weakness. Came to ED for evaluation. Hypotensive with a blood pressure of 68/53 upon arrival to the ED. Received fluid resuscitation with improvement of hemodynamics. Allergies Allergy/AdvReac Type Severity Reaction Status Date / Time acetaminophen [From Vicodin] Allergy Swelling Verified 12/17/18 16:00 of Lip/Tongue/Throat hydrocodone [From Vicodin] Allergy Swelling Verified 12/17/18 16:00 of Lip/Tongue/Throat Home Medications Home Medications Medication Instructions Recorded Confirmed Type metoprolol succinate 25 mg PO QAM 11/11/18 12/17/18 History allopurinol 300 mg PO DAILY 12/17/18 12/17/18 History lisinopril 40 mg PO DAILY 12/17/18 12/17/18 History ondansetron HCl 8 mg PO Q8H PRN 12/17/18 12/17/18 History prednisone See Rx Instructions .ROUTE .COMPLEX 12/17/18 12/17/18 History prochlorperazine maleate 10 mg PO Q6H PRN 12/17/18 12/17/18 History tramadol 25 mg PO Q6H PRN 12/17/18 12/17/18 History Past Med/Surg History Medical History Lymphoma (Chronic) diffuse large B-cell lymphoma History of hysterectomy (Chronic) MGUS (monoclonal gammopathy of unknown significance) (Chronic) Hypertension (Chronic) Cervical stenosis of spinal canal (Chronic) Surgical History Status post cystoscopy with ureteral stent placement (Chronic) History of appendectomy (Chronic) Family History Sister Leukemia Mother Cancer Father Cancer Social History Preferred Language: Maori Communication Ability: Effective Integration Architect Required: No Beliefs That Will Affect Care: None marital status: Current Living Situation: Spouse Other Information That Helps Us Care for You: No Feels Safe at Home: Yes Safety Concerns: Feels Safe At This Time Smoking Status: Never smoker Do You Dip or Chew Tobacco: No ; Second Hand Exposure: Yes ; Tobacco Cessation Education Requested by Patient: No Hx Alcohol Use: No Hx Substance Use: No Review of Systems Constitutional: + weight loss (20-30 lbs); no fever Eyes: + diplopia (recent diplopia, resolved); no worsening vision Ear, Nose, Mouth, Throat: no nasal congestion, no sinus pain/pressure and no sore throat Respiratory: no cough and no dyspnea Cardiovascular: + edema; no chest pain and no palpitations Gastrointestinal: as per Subjective / HPI Genitourinary: Mcgraw cath with bloody urine Musculoskeletal: + myalgia; no joint pain Integumentary: no rash and no new lesions Neurologic: + headache(s) (occasional) Endocrine: no polydipsia and no polyuria Hematologic / Lymphatic: no easy bleeding and no easy bruising Physical Exam Constitutional: + ill appearing and + cachectic Eyes: PERRL, conjunctivae normal, anicteric sclerae ENMT: Ears: no external ear abnormality Nose: no external nose abnormality upper and lower dentures; oral mucosa dry Neck: trachea midline, no thyromegaly Respiratory: normal respiratory effort, lungs clear to auscultation Cardiovascular: Rate/Rhythm: regular rate, regular rhythm and + tachycardic Heart Sounds: + murmur (I/ sys murmur LSB); no gallop and no cardiac rub Vessels: no JVD Extremities: normal capillary refill and + edema; no calf tenderness Gastrointestinal (Abdomen): Inspection/Auscultation: + abdomen distended; + abnormal bowel sounds (hyperactive) large pelvic mass with tenderness Musculoskeletal: Head/Neck/Chest: neck supple Extremities: no cyanosis and no clubbing Skin: no rashes, warm and dry ~ 5 cm subcutaneous mass overlying right scapula Neurologic: PERRL, EOMI no facial palsy no dysarthria or aphasia patellar DTR's / bilat Psychiatric: Orientation: alert; + not oriented x 3 Affect: euthymic affect oriented to person, place, year but not day of week unable to name current president easily distracted Genitourinary: Mcgraw catheter with gross hematuria Results & Data Vital Signs (Past 12 Hours) Vital Signs Temp Pulse Resp BP Pulse Ox 12/17/18 18:30 94 H 25 H 129/73 96 12/17/18 18:15 94 H 25 H 121/90 96 12/17/18 18:01 96 H 14 112/83 12/17/18 17:45 98 H 21 136/80 12/17/18 17:30 99 H 22 132/75 97 12/17/18 17:15 96 H 21 119/73 98 12/17/18 17:00 100 H 24 90/62 L 84 L 12/17/18 16:53 104 H 23 125/72 94 12/17/18 16:01 72 24 98/48 L 12/17/18 15:43 127 H 34 H 127/78 12/17/18 15:30 124 H 33 H 115/69 12/17/18 15:16 121 H 33 H 96/65 L 12/17/18 14:51 37.5 C 82 20 68/53 L 99 Laboratory Results 12/17/18 15:08 12/17/18 15:[address] HEAD IMPRESSION: No acute intracranial abnormality or calvarial fracture. The above report was generated using voice recognition software. It may contain grammatical, syntax or spelling errors. Electronically signed by: Devin Burt M.D. 12/17/2018 4:[address] CERVICAL SPINE IMPRESSION: No acute cervical spine fracture or subluxation. The above report was generated using voice recognition software. It may contain grammatical, syntax or spelling errors. Electronically signed by: Devin Burt M.D. 12/17/2018 4:[address] CHEST IMPRESSION: 1. Motion artifact degrades evaluation and moderately limits diagnostic sensitivity the exam. Allowing for this, no acute intrathoracic injury. 2. 5.1 cm left lower lobe central infrahilar mass highly concerning for primary bronchogenic neoplasm. 3. Mild cardiomegaly. The report will be called/faxed according to standard departmental protocol. Electronically signed by: Danny Griffith M.D. 12/17/2018 4:[address] ABDOMEN AND PELVIS IMPRESSION: Image quality is degraded by positioning of the arms over the abdomen and motion artifact. This moderately limits diagnostic sensitivity the exam. 1. No acute intra-abdominal injury. No gross evidence of a displaced fracture. 2. Interval worsening of extrapleural pelvic masses concerning for progression of disease, likely lymphoma. Greater surrounding soft tissue invasion. These masses results in obstructive uropathy, however, bilateral ureteral stents have been placed with decreased severity of hydronephrosis. 3. Interval development of an enterocolitis, likely infectious. 4. Left infrahilar mass in the left lower lobe concerning for neoplasm, either primary bronchogenic or related to lymphoma. Electronically signed by: Danny Griffith M.D. 12/17/2018 4:38 PM ECG Additional Comments: EKG performed at 1644 reviewed and demonstrated sinus tachycardia at 106/minute, PVCs, left anterior fascicular block, poor R wave progression. Code Status & VTE Plan Code Status Advanced directives and resuscitation status discussed with patient and her family. No living will. She would like resuscitation attempted in the event of a cardiopulmonary arrest. VTE Prophylaxis Plan VTE Prophylaxis will be ordered: Yes (1) Diarrhea Diarrhea type: unspecified type Qualified Code(s): R19.7 - Diarrhea, unspecif ied (2) Hypotension Hypotension type: unspecified hypotension type Qualified Code(s): I95.9 - Hypotension, unspecified
[2018-12-17] MEDS ORDERED: ONDANSETRON INJ 2 MG/ML 2 ML VIAL IV PRN (19:38)
[2018-12-17] MEDS ORDERED: HYDROmorphone INJ 0.5 MG/0.5 ML SYR IV PRN (20:21)
[2018-12-17] MEDS: LACTATED RINGER'S 1,000 ML IV SCH (20:39)
--- NOTE | 2018-12-17 21:18 | Emergency Department Note ---
Entered by Robin Gonsalves acting as a scribe for Neftali Crystal DO History of Present Illness General Chief complaint: Groin Pain Stated complaint: GROIN PAIN Time Seen by Provider: 12/17/18 15:00 Source: patient History of Present Illness Provider complaint: Abdominal pain Onset (ago): day(s) 1 Location: abdomen Pain Consistency: + constant Maximum Pain Intensity: 7 Current Pain Intensity: 7 Relieved By: + none Exacerbated By: + none Associated symptoms: + denies other symptoms (Tingling, numbness) and + other (Hematuria ) The patient is a 78 year old female w/ PMHx lymphoma, DVT, appendectomy, HTN, cervical stenosis, and a hystectomy who presents to the ED w/ CC of lower abdominal pain beginning last night. The patient rates the pain as a 7/10 and notes nothing makes it better or worse. The family state that yesterday the patient had a fall after tripping while walking. The patient denies any head trauma during the fall. Per the son, the patient was initially asymptomatic after the fall, however when she woke up this morning she had blood in her catheter bag. The patient denies being on any blood thinners as well as any tingling or numbness. Home Medications Home Medications Medication Instructions Recorded Confirmed Type metoprolol succinate 25 mg PO QAM 11/11/18 12/17/18 History allopurinol 300 mg PO DAILY 12/17/18 12/17/18 History lisinopril 40 mg PO DAILY 12/17/18 12/17/18 History ondansetron HCl 8 mg PO Q8H PRN 12/17/18 12/17/18 History prednisone See Rx Instructions .ROUTE .COMPLEX 12/17/18 12/17/18 History prochlorperazine maleate 10 mg PO Q6H PRN 12/17/18 12/17/18 History tramadol 25 mg PO Q6H PRN 12/17/18 12/17/18 History Allergies Allergy/AdvReac Type Severity Reaction Status Date / Time acetaminophen [From Vicodin] Allergy Swelling Verified 12/17/18 16:00 of Lip/Tongue/Throat hydrocodone [From Vicodin] Allergy Swelling Verified 12/17/18 16:00 of Lip/Tongue/Throat Past Med/Surg History Medical History Lymphoma (Chronic) diffuse large B-cell lymphoma History of hysterectomy (Chronic) MGUS (monoclonal gammopathy of unknown significance) (Chronic) Hypertension (Chronic) Cervical stenosis of spinal canal (Chronic) Surgical History Status post cystoscopy with ureteral stent placement (Chronic) History of appendectomy (Chronic) Family History Sister Leukemia Mother Cancer Father Cancer Social History Preferred Language: Citizen Of [place] Communication Ability: Effective Production Solderer Required: No Beliefs That Will Affect Care: None marital status: Current Living Situation: Spouse Other Information That Helps Us Care for You: No Feels Safe at Home: Yes Safety Concerns: Feels Safe At This Time Smoking Status: Never smoker Do You Dip or Chew Tobacco: No ; Second Hand Exposure: Yes ; Tobacco Cessation Education Requested by Patient: No Hx Alcohol Use: No Hx Substance Use: No Review of Systems See HPI for pertinent positives & negatives. and A total of 10 systems reviewed and were otherwise negative Physical Exam Vital Signs Vital Signs - 24 hr 12/17/18 14:51 12/17/18 15:16 12/17/18 15:30 Temperature 37.5 C Temperature Source Oral Sepsis Recent Fever Within 48 Hours No Sepsis Action Taken by Nursing No Action Required Pulse Rate 82 121 H 124 H Pulse Rate from SpO2 Sensor Respiratory Rate 20 33 H 33 H Respiratory Effort / Characteristics Non-Labored Respiratory Depth Normal Blood Pressure 68/53 L 96/65 L 115/69 Blood Pressure Mean 58 75 84 Pulse Oximetry 99 Oxygen Delivery Method Room Air Oxygen Flow Rate 12/17/18 15:43 12/17/18 16:01 12/17/18 16:53 Temperature Temperature Source Sepsis Recent Fever Within 48 Hours Sepsis Action Taken by Nursing Pulse Rate 127 H 72 104 H Pulse Rate from SpO2 Sensor 94 H Respiratory Rate 34 H 24 23 Respiratory Effort / Characteristics Respiratory Depth Blood Pressure 127/78 98/48 L 125/72 Blood Pressure Mean 94 64 89 Pulse Oximetry 94 Oxygen Delivery Method Oxygen Flow Rate 12/17/18 17:00 12/17/18 17:15 12/17/18 17:30 Temperature Temperature Source Sepsis Recent Fever Within 48 Hours Sepsis Action Taken by Nursing Pulse Rate 100 H 96 H 99 H Pulse Rate from SpO2 Sensor 86 Respiratory Rate 24 21 22 Respiratory Effort / Characteristics Respiratory Depth Blood Pressure 90/62 L 119/73 132/75 Blood Pressure Mean 71 88 94 Pulse Oximetry 84 L 98 97 Oxygen Delivery Method Nasal Cannula Nasal Cannula Oxygen Flow Rate 2 2 12/17/18 17:45 Temperature Temperature Source Sepsis Recent Fever Within 48 Hours Sepsis Action Taken by Nursing Pulse Rate 98 H Pulse Rate from SpO2 Sensor Respiratory Rate 21 Respiratory Effort / Characteristics Respiratory Depth Blood Pressure 136/80 Blood Pressure Mean 98 Pulse Oximetry Oxygen Delivery Method Oxygen Flow Rate GENERAL: alert, lying in bed, ill-appearing, holding right abdomen, disheveled HEAD: normal cephalic, atraumatic EYE EXAM: normal conjunctiva, PERRL and EOM's grossly intact OROPHARYNX: no exudate, no erythema, lips, buccal mucosa, and tongue normal and mucous membranes are moist NECK: supple, no nuchal rigidity, no adenopathy, non-tender CHEST: stable to compression anteriorly and posteriorly LUNGS: clear to auscultation. Normal chest wall mechanics HEART: no murmurs, S1 normal and S2 normal ABDOMEN: abdomen soft,diffusely tender, normo-active bowel sounds, no masses, no rebound or guarding. PELVIS: stable to compression anteriorly and posteriorly BACK: Back is symmetrical on inspection and there is no deformity, no midline tenderness, no CVA tenderness. 2 inch contusion noted on the right ribs, lateral to the right scapula. : Mcgraw in place with bright red blood. UPPER EXTREMITIES: full active and passive range of motion of all joints without tenderness to palpation LOWER EXTREMITIES: full active and passive range of motion of all joints without tenderness to palpation NEURO EXAM: Normal sensorium, cranial nerves II-XII grossly intact, normal speech, no gross weakness of arms, no gross weakness of legs. GCS: 15. Course ED COURSE: Vital signs were reviewed and showed hypotension. The patients medical record was reviewed The above diagnostic studies were performed and reviewed. ED treatments and interventions as stated above. 1521: I was requested by Dr. Rolon to see the patient. The patient was evaluated in room B06. A complete history and physical examination was fabiana bunch 1659: Upon reevaluation, the patient is resting in bed. She admitted to me that she has been having persistent diarrhea for the past 4 days. I discussed my findings with the patient and she understands and agrees with the treatment plan. 1725: [facility] He is going to accept the patient for further evaluation. Based on the patients age, coexisting illnesses, exam and lab findings the decision to treat as an inpatient was made. The patient remained stable while under my care. The patient will be evaluated for further management. Consultations Consultation #1: [facility]'s [facility]. He is going to accept the patient for further evaluation. Time: 17:25 Administered Medications Lactated Ringer's (Lr) 1,000 mls @ 125 mls/hr IV .Q8H TORREY Stop: 01/16/19 19:44 Last Admin: 12/17/18 20:39 Dose: 125 mls/hr Documented by: [id number] Ioversol (Optiray 320 100ml) 92 ml IV ONCE PRN PRN Reason: Interaction Checking Stop: 12/21/18 16:16 Last Admin: 12/17/18 16:17 Dose: 1 ml Documented by: [id number] Discontinued Medications Fentanyl Citrate (Fentanyl Citrate) 25 mcg IV NOW STA Stop: 12/17/18 15:29 Last Admin: 12/17/18 15:48 Dose: 25 mcg Documented by: [id number] Sodium Chloride (Nss 1000ml) 2,000 mls @ 999 mls/hr IV .Q2H1M TORREY Stop: 12/17/18 17:30 Last Infusion: 12/17/18 17:39 Dose: 0 mls/hr Documented by: [id number] Admin: 12/17/18 15:48 Dose: 999 mls/hr Documented by: [id number] Piperacillin Sod/Tazobactam Sod (Zosyn) 3.375 gm in 115 mls @ 230 mls/hr IV NOW STA Stop: 12/17/18 19:18 Last Infusion: 12/17/18 20:30 Dose: 0 mls/hr Documented by: [id number] Admin: 12/17/18 18:58 Dose: 230 mls/hr Documented by: [id number] Ondansetron HCl (Zofran) 4 mg IV NOW STA Stop: 12/17/18 15:29 Last Admin: 12/17/18 15:48 Dose: 4 mg Documented by: [id number] Medical Decision Making Differential Diagnosis Differential diagnoses include major intracranial, cervical, spinal, thoracic, abdominal, pelvic and neurologic injury. Fracture, contusion, sprain, strain, laceration, abrasions included as well. Medical Records Attestation: I reviewed the patient's medical records. Home Medications Current Medication List: was personally reviewed by me Laboratory Data Attestation: I reviewed the patient's lab results. Result diagrams: 12/17/18 15:08 12/17/18 15:08 Lab Results 12/17/18 12/17/18 12/17/18 Range/Units 15:08 15:08 15:08 WBC 12.82 H (4.8-10.8) K/uL RBC 4.26 (4.2-5.4) M/uL Hgb 11.1 L (12.0-16.0) g/dL POC Hgb (12.0-16.0) g/dl Hct 35.1 L (37-47) % POC Hct (37-47) % MCV 82.4 (80-100) fL MCH 26.1 (25-34) pg MCHC 31.6 L (32-36) g/dL RDW Std Deviation 54.0 H (36.4-46.3) fL RDW Coeff of Jessee 17.9 H (11.5-14.5) % Plt Count 395 (130-400) K/uL MPV 9.3 (7.4-10.4) fL Immature Gran % (Auto) 0.2 % Neut % (Auto) 76.6 % Lymph % (Auto) 15.1 % Parke % (Auto) 7.0 % Eos % (Auto) 0.8 % Baso % (Auto) 0.3 % Immature Gran # (Auto) 0.03 H (0.00-0.02) K/uL Neut # (Auto) 9.81 H (1.4-6.5) K/uL Lymph # (Auto) 1.94 (1.2-3.4) K/uL Parke # (Auto) 0.90 H (0.11-0.59) K/uL Eos # (Auto) 0.10 (0-0.5) K/uL Baso # (Auto) 0.04 (0-0.2) K/uL PT 11.2 (9.0-12.0) Seconds INR 1.1 (0.9-1.1) POC Sodium (135-144) mEq/L Sodium 140 (136-145) mmol/L POC Potassium (3.3-5.0) mEq/L Potassium 3.6 (3.5-5.1) mmol/L POC Chloride (101-112) mEq/L Chloride 107 (98-107) mmol/L Carbon Dioxide 21 (21-32) mmol/L POC Total CO2 (24-31) mEq/l Anion Gap 12.0 H (3-11) POC Anion Gap (16-25) mmol/L POC BUN (7-18) mg/dl BUN 23 H (7-18) mg/dl Creatinine 1.21 H (0.6-1.2) mg/dl POC Creatinine (0.6-1.3) mg/dl Est Cr Clr Drug Dosing Not Reportable Est GFR ( Amer) 50.0 Est GFR (Non-Af Amer) 43.1 BUN/Creatinine Ratio 19.1 (10-20) Glucose 116 H (70-99) mg/dl POC Glucose (other) (70-99) mg/dl Calcium 9.9 (8.5-10.1) mg/dl POC Ioniz Calcium Yaritza (1.12-1.32) mmol/l Total Bilirubin 1.3 H (0.2-1) mg/dl AST 21 (15-37) U/L ALT 11 L (12-78) U/L Alkaline Phosphatase 127 H (45-117) U/L Troponin I < 0.015 (0-0.045) ng/ml Total Protein 7.5 (6.4-8.2) gm/dl Albumin 2.7 L (3.4-5.0) gm/dl Globulin 4.8 H (2.5-4.0) gm/dl Albumin/Globulin Ratio 0.6 L (0.9-2) Procalcitonin (0-0.5) ng/ml Urine Color Urine Appearance (Clear) Urine pH (4.5-7.5) Ur Specific [place] (1.000-1.030) Urine Protein (Negative) Urine Glucose (UA) (Negative) Urine Ketones (Negative) Urine Blood (Negative) Urine Nitrite (Negative) Urine Bilirubin (Negative) Urine Urobilinogen (Negative) Ur Leukocyte Esterase (Negative) Urine RBC (0-4) /hpf Urine WBC (0-5) /hpf Ur Epithelial Cells (0-5) /lpf Urine Bacteria (Negative) 12/17/18 12/17/18 12/17/18 Range/Units 15:08 15:22 16:54 WBC (4.8-10.8) K/uL RBC (4.2-5.4) M/uL Hgb (12.0-16.0) g/dL POC Hgb 11.9 L (12.0-16.0) g/dl Hct (37-47) % POC Hct 35 L (37-47) % MCV (80-100) fL MCH (25-34) pg MCHC (32-36) g/dL RDW Std Deviation (36.4-46.3) fL RDW Coeff of Jessee (11.5-14.5) % Plt Count (130-400) K/uL MPV (7.4-10.4) fL Immature Gran % (Auto) % Neut % (Auto) % Lymph % (Auto) % Parke % (Auto) % Eos % (Auto) % Baso % (Auto) % Immature Gran # (Auto) (0.00-0.02) K/uL Neut # (Auto) (1.4-6.5) K/uL Lymph # (Auto) (1.2-3.4) K/uL Parke # (Auto) (0.11-0.59) K/uL Eos # (Auto) (0-0.5) K/uL Baso # (Auto) (0-0.2) K/uL PT (9.0-12.0) Seconds INR (0.9-1.1) POC Sodium 140 (135-144) mEq/L Sodium (136-145) mmol/L POC Potassium 3.6 (3.3-5.0) mEq/L Potassium (3.5-5.1) mmol/L POC Chloride 107 (101-112) mEq/L Chloride (98-107) mmol/L Carbon Dioxide (21-32) mmol/L POC Total CO2 19 L (24-31) mEq/l Anion Gap (3-11) POC Anion Gap 18.0 (16-25) mmol/L POC BUN 21 H (7-18) mg/dl BUN (7-18) mg/dl Creatinine (0.6-1.2) mg/dl POC Creatinine 1.0 (0.6-1.3) mg/dl Est Cr Clr Drug Dosing Est GFR ( Amer) Est GFR (Non-Af Amer) BUN/Creatinine Ratio (10-20) Glucose (70-99) mg/dl POC Glucose (other) 118 H (70-99) mg/dl Calcium (8.5-10.1) mg/dl POC Ioniz Calcium Yaritza 1.29 (1.12-1.32) mmol/l Total Bilirubin (0.2-1) mg/dl AST (15-37) U/L ALT (12-78) U/L Alkaline Phosphatase (45-117) U/L Troponin I (0-0.045) ng/ml Total Protein (6.4-8.2) gm/dl Albumin (3.4-5.0) gm/dl Globulin (2.5-4.0) gm/dl Albumin/Globulin Ratio (0.9-2) Procalcitonin 0.06 (0-0.5) ng/ml Urine Color Red Urine Appearance Turbid A (Clear) Urine pH 6.5 (4.5-7.5) Ur Specific [place] 1.015 (1.000-1.030) Urine Protein 3+ H (Negative) Urine Glucose (UA) Negative (Negative) Urine Ketones Trace H (Negative) Urine Blood 3+ H (Negative) Urine Nitrite Positive A (Negative) Urine Bilirubin Negative (Negative) Urine Urobilinogen Negative (Negative) Ur Leukocyte Esterase 2+ H (Negative) Urine RBC >30 H (0-4) /hpf Urine WBC >30 H (0-5) /hpf Ur Epithelial Cells 5-10 H (0-5) /lpf Urine Bacteria 1+ H (Negative) Imaging Data Radiologist's Impression: Radiology results as stated below per my review and the radiologist's interpretation: CT head/brain wo con CLINICAL HISTORY: 78 years-old Female with fall hypotension. Acute fall with hypotension TECHNIQUE: Multiple axial CT images of the head were obtained without contrast. A dose lowering technique was utilized adhering to the principles of ALARA. COMPARISON: CT cervical spine of same day FINDINGS: Motion degraded exam. No acute intracranial hemorrhage, midline shift, intracranial mass, hydrocephalus, territorial ischemia or abnormal extra-axial collection. Age-related involutional changes. Patchy white matter hypodensities suggest chronic microvascular ischemic disease. The calvarium is intact. The paranasal sinuses, mastoid air cells, and middle ear cavities are clear. IMPRESSION: No acute intracranial abnormality or calvarial fracture. The above report was generated using voice recognition software. It may contain grammatical, syntax or spelling errors. Electronically signed by: Devin Burt M.D. 12/17/2018 4:[address] cervical spine wo con CLINICAL HISTORY: 78 years-old Female with fall. Acute neck injury status post fall COMPARISON: CT head and CT chest of same day. TECHNIQUE: Multiple axial CT images of the cervical spine were obtained without contrast. A dose lowering technique was utilized adhering to the principles of ALARA. FINDINGS: Left infrahilar mass noted on the lay out technician localizer images, better described on CT chest of same day. Anterior plate and screw fusion hardware noted at C4-C7. Corpectomy changes at C5. Incomplete bony fusion at C5-C6 and C6-C7. Demineralized appearance of the bones. Multilevel disc space narrowing with uncovertebral spurring and facet arthrosis. No acute cervical spine fracture or subluxation identified. Evaluation of the central canal and neuroforamina is better assessed by MRI. Multilevel foraminal narrowing is noted. No pneumothorax. Soft tissues are unremarkable. IMPRESSION: No acute cervical spine fracture or subluxation. The above report was generated using voice recognition software. It may contain grammatical, syntax or spelling errors. Electronically signed by: Devin Burt M.D. 12/17/2018 4:[address] chest w con CLINICAL HISTORY: 78 years-old Female presenting with fall cr 0.6. TECHNIQUE: Multidetector CT imaging of the chest was performed after the administration of intravenous contrast. IV contrast: 90 mL of Optiray 320. One or more dose lowering techniques were used consistent with the principles of ALARA (as low as reasonably achievable), including automatic exposure control, mA or kV adjustment to individual patient size, and/or use of iterative reconstruction. COMPARISON: None. CT DOSE (mGy.cm): The estimated cumulative dose is 1468.86 mGy.cm. FINDINGS: Auditor Supervisor topogram: Bilateral ureteral stents in place. Cervical fusion hardware. Soft tissues: Normal thyroid and thoracic inlet. No axillary, supraclavicular, mediastinal, or hilar lymphadenopathy. Normal aorta. Mild multichamber enlargement of the heart. No pericardial or pleural effusion. Moderate hiatal hernia. Lungs and airways: No pneumothorax. Obstruction of left lower lobe bronchi due to a central left infrahilar mass measuring 5.1 cm in diameter. Respiratory motion artifact degrades evaluation of lung parenchyma. Pulmonary arteries are not significantly enlarged relative to adjacent bronchi. No interlobular septal thickening. Minimal dependent changes likely atelectasis. Musculoskeletal: Anterior cervical fusion hardware. No acute osseous injury. Multilevel degenerative changes of the thoracic spine. IMPRESSION: 1. Motion artifact degrades evaluation and moderately limits diagnostic sensitivity the exam. Allowing for this, no acute intrathoracic injury. 2. 5.1 cm left lower lobe central infrahilar mass highly concerning for primary bronchogenic neoplasm. 3. Mild cardiomegaly. The report will be called/faxed according to standard departmental protocol. Electronically signed by: Danny Griffith M.D. 12/17/2018 4:[address] abd pelvis IV con only CLINICAL HISTORY: 78 years-old Female presenting with fall hypotension urinating blood. TECHNIQUE: Multidetector CT of the abdomen and pelvis was performed after the administration of intravenous contrast. IV contrast: 93 mL of Optiray 320. One or more dose lowering techniques were used consistent with the principles of ALARA (as low as reasonably achievable), including automatic exposure control, mA or kV adjustment to individual patient size, and/or use of iterative reconstruction. COMPARISON: 11/11/2018. CT DOSE (mGy.cm): The estimated cumulative dose is 1468.83. FINDINGS: Auditor Supervisor topogram: Bilateral ureteral stents. Anterior cervical fusion hardware. Image quality is degraded by positioning of the arms over the abdomen and motion artifact. This moderately limits diagnostic sensitivity the exam. Lung bases: Multichamber enlargement of the heart. No pericardial or pleural effusion. Left infrahilar mass adjacent to the moderate hiatal hernia. Liver: Normal morphology. No liver lesion. Patent hepatic vasculature. Biliary: No intrahepatic or extrahepatic biliary ductal dilatation. Normal gallbladder. Pancreas: Mild parenchymal atrophy. A portion of the pancreas may be contained within the moderate hiatal hernia. Spleen: Normal. Adrenal glands: Normal. Kidneys and ureters: Bilateral ureteral stents remain in place. Distention of the urinary collecting systems has slightly decreased in from prior as the stents were not previously present. Multifocal scarring and atrophy in the right kidney. Underlying prominent cyst at the lower pole of the left kidney. No nephrolithiasis. Bilateral urothelial thickening. No obstructing masses in the lower pelvis. Bladder: A Mcgraw catheter is in place. The urinary bladder is completely decompressed. Pelvic organs: Nonvisualization due to the large pelvic masses. Bowel: The rectum is severely narrowed due to the large extraperitoneal pelvic masses. There is mild wall thickening of the sigmoid colon new from prior exam. Fluid noted in the colon suggesting a diarrheal state. Wall thickening of the cecum also noted. There is wall thickening of the terminal ileum suggested. No bowel obstruction. Moderate anomaly sliding type hiatal hernia. Peritoneal cavity: Small free fluid in the superior pelvis. No free intr aperitoneal gas. Diffuse mesenteric fat infiltration. Interval increase in size of the extraperitoneal pelvic masses with greater extension of soft tissue outside of the pelvis along the posterior wall of the right acetabulum and with greater surrounding mass effect and convexity of margins. Lymph nodes: The pelvic masses may represent génesis conglomerations. No discrete lymphadenopathy is evident. Vasculature: Transiting vasculature in the external iliac regions are grossly patent though stenosis or occlusion may be present and internal iliac regions. Aorta and IVC remain patent. Abdominal wall: Diffuse body wall edema. Musculoskeletal: Degenerative changes of the spine. No displaced fracture is evident allowing for the severity of motion artifact degradation. Osteopenia. IMPRESSION: Image quality is degraded by positioning of the arms over the abdomen and motion artifact. This moderately limits diagnostic sensitivity the exam. 1. No acute intra-abdominal injury. No gross evidence of a displaced fracture. 2. Interval worsening of extrapleural pelvic masses concerning for progression of disease, likely lymphoma. Greater surrounding soft tissue invasion. These masses results in obstructive uropathy, however, bilateral ureteral stents have been placed with decreased severity of hydronephrosis. 3. Interval development of an enterocolitis, likely infectious. 4. Left infrahilar mass in the left lower lobe concerning for neoplasm, either primary bronchogenic or related to lymphoma. Electronically signed by: Danny Griffith M.D. 12/17/2018 4:38 PM ECG Data Attestation: I personally reviewed and interpreted this ECG as follows: Indication: abdominal pain Rate (beats per minute): 106 Rhythm: sinus tachycardia Findings: + other (Poor baseline), + PVC and + left axis deviation Blood Pressure Blood Pressure Findings: Low blood pressure Blood Pressure Disposition: further management by hospitalist BISHNU Narrative Patient is a 68-year-old female who presents the ER following a mechanical fall weakness blood in her urine and diarrhea. Diarrhea has been present for the past 4 days associate with some intermittent vomiting. IV was established blood work was obtained. Patient was found to be hypotensive with systolic blood pressures in the 60s initially. Labs show leukocytosis of 12,000. Mild anemia 11.1. INR was unremarkable. BMP along with LFTs bilirubin troponin was negative. UA resulted after admission and does suggest a UTI. Patient had profuse diarrhea and I did initially believe that this is the cause of her hypotension. She was volume repleted with 2 L IV fluids. Systolic blood pressures trended up into the low 100s. She is updated bedside. CT of her head neck chest abdomen and pelvis showed no acute pathology. Patient was updated bedside. Discussed with the hospitalist and she was admitted for further work- up. Impression & Plan Fall, Hypotension, Diarrhea Critical Care Time Critical Care Time: Yes Total Critical Care Time: 35 I have personally spent approximately 35 minutes of critical care time in the direct management of this patient. This includes bedside care, interpretation of diagnostic studies, and testing, discussion with consultants, patient, and family members, and other required patient management activities. This 35 mi nutes is in excess of all separately billable procedures. Discharge Plan Visit Data *Final* Discharge Date/Time: 12/17/18 19:03 Chief Complaint: Groin Pain Stated Complaint: GROIN PAIN ED Provider: Neftali Crystal Discharge Problem: Fall, Hypotension, Diarrhea Patient Disposition: Being Evaluated by Hospitalist Discharge Instructions Interventions: ED Discharge Assessment Last Done: 12/17/18 19:03 Discharge Problem: Fall Qualifiers: Encounter type: initial encounter Qualified Code(s): W19.XXXA - Unspecified fall, initial encounter Hypotension Qualifiers: Hypotension type: unspecified hypotension type Qualified Code(s): I95.9 - Hypotension, unspecified Diarrhea Qualifiers: Diarrhea type: unspecified type Qualified Code(s): R19.7 - Diarrhea, unspecified The scribe's documentation has been prepared under my direction and personally reviewed by me in its entirety. I confirm that the note above accurately reflects all work, treatment, procedures, and medical decision making performed by me.
[2018-12-17] MEDS ORDERED: PIPERACILLIN/TAZOBACTAM 3.375 GM in DEXTROSE 5% 100 ML IV SCH (21:45)
[2018-12-18] MEDS: PIPERACILLIN/TAZOBACTAM 3.375 GM in DEXTROSE 5% 100 ML IV SCH ×4 (00:44→23:35)
[2018-12-18] MEDS: LACTATED RINGER'S 1,000 ML IV SCH ×2 (04:30→12:41)
--- NOTE | 2018-12-18 06:42 | Ultrasound Report ---
BILATERAL LOWER EXTREMITY VENOUS DOPPLER CLINICAL HISTORY: lower extremity swelling, r/o DVT COMPARISON STUDY: No previous studies for comparison. TECHNIQUE: Sonography of the deep venous system of the bilateral lower extremities was performed. Co mpression and augmentation were evaluated. FINDINGS: Note is made of deep venous thrombus within the right common femoral, femoral, popliteal, p osterior tibial and peroneal veins. This thrombus is nearly occlusive. There is superficial thrombus within the right greater saphenous vein. There is no thrombus within the left lower extremity. IMPRESSION: Extensive deep venous thrombus within the right lower extremity. Electronically signed by: Francis Stokes M.D. 12/18/2018 6:40 AM
[2018-12-18 07:01] LABS: Hematocrit (blood only) 25.1 % (37-47); Hemoglobin 8.1 g/dL (12.0-16.0); Mean Corpuscular Hemoglobin 26.5 pg (25-34); Mean Corpuscular Hgb Conc 32.3 g/dL (32-36); Mean Platelet Volume 8.7 fL (7.4-10.4); Platelet Count 236 K/uL (130-400); RDW Coefficient of Variation 17.9 % (11.5-14.5); RDW Standard Deviation 53.7 fL (36.4-46.3); Red Blood Count 3.06 M/uL (4.2-5.4); White Blood Count 12.87 K/uL (4.8-10.8)
[2018-12-18 07:30] LABS: BUN Creatinine Ratio 28.4 (10-20); Calcium 8.8 mg/dl (8.5-10.1); Creatinine Clr Calc Pharmacy 43.8 ml/min; Est GFR (African American) 74.5; Est GFR (Non-African American) 64.3; Potassium 3.3 mmol/L (3.5-5.1)
[2018-12-18] MEDS: allopurinoL 300 MG TAB PO SCH (08:13)
[2018-12-18] MEDS ORDERED: VANCOMYCIN CONSULT ACTIVE PRN (08:41)
[2018-12-18] MEDS ORDERED: VANCOMYCIN HCL 1,000 MG in SODIUM CHLORIDE 0.9% 250 ML IV SCH (08:45)
--- NOTE | 2018-12-18 08:52 | Urology Consultation ---
Date of Consultation December 18, 2018 Assessment & Plan (1) UTI (urinary tract infection): (2) Gross hematuria: 78yo F with diffuse large B-Cell lymphoma, hypotension, bilateral ureteral stent and indwelling bermudez catheter, suspected UTI. This patient appears to have multiple issues to tackle at this time. From standpoint she appears to be stable. Hematuria has improved s/p catheter exchange and irrigation last evening. Awaiting UC&S results, continue broad spectrum abx. Tolerating bilateral stents, placed on 11/11. Per Dr. Hamilton, no need to discuss exchanging at this time. Maintain bermudez. Okay to irrigate for clots as needed. is understandably very concerned about plan for chemotherapy, as today was supposed to be her first treatment. No acute intervention required at this time but we will continue to monitor closely with the primary team. Please see additional comments per my attending physician as indicated. History of Present Illness Reason for Consultation: hematuria Requesting Physician: Dr Foreamn Attending Physician: Magalys Foreman MD History of Present Illness This unfortunate 78yo F with newly diagnosed diffuse large B-cell lymphoma last month s/p bilateral ureteral stent placement secondary to fixed/obstructing pelvic mass on 11/11. She was then discharged home to [facility] for rehab and to begin chemotherapy. She was sent home with bermudez catheter, experiencing retention issues secondary to mass as well. She was readmitted last evening after her noticed "straight blood" through her catheter, as recommended by her primary care physician. Progressive dehydration, anorexia, nausea and diarrhea noted as well. She was found to be profoundly hypotensive, SBP 60s, meeting criteria for SIRS. UA is nitrite positive, +lactic acid. C.Diff negative. Of note, she was also diagnosed with new onset DVT during this admission, pending vascular surgery recommendations. Pt appears comfortable but weak upon exam today, becoming fatigued easily with conversation. , Femi, at bedside. Per nursing notes, it did require catheter tubing replacement and irrigation last evening due to clots. Now draining clear. Per pt, she did experience some suprapubic discomfort and burning around catheter a few days ago. Labs reviewed, h/h drop likely delusional s/p fluid infusion; will continue to monitor. Pt acknowledges some lower abd discomfort. Denies flank or suprapubic discomfort at this time. No stent irritation. Allergies Allergy/AdvReac Type Severity Reaction Status Date / Time acetaminophen [From Vicodin] Allergy Swelling Verified 12/17/18 16:00 of Lip/Tongue/Throat hydrocodone [From Vicodin] Allergy Swelling Verified 12/17/18 16:00 of Lip/Tongue/Throat Home Medications Home Medications Medication Instructions Recorded Confirmed Type metoprolol succinate 25 mg PO QAM 11/11/18 12/17/18 History allopurinol 300 mg PO DAILY 12/17/18 12/17/18 History lisinopril 40 mg PO DAILY 12/17/18 12/17/18 History ondansetron HCl 8 mg PO Q8H PRN 12/17/18 12/17/18 History prednisone See Rx Instructions .ROUTE .COMPLEX 12/17/18 12/17/18 History prochlorperazine maleate 10 mg PO Q6H PRN 12/17/18 12/17/18 History tramadol 25 mg PO Q6H PRN 12/17/18 12/17/18 History Patient History Medical History Lymphoma (Chronic) diffuse large B-cell lymphoma History of hysterectomy (Chronic) MGUS (monoclonal gammopathy of unknown significance) (Chronic) Hypertension (Chronic) Cervical stenosis of spinal canal (Chronic) Surgical History Status post cystoscopy with ureteral stent placement (Chronic) History of appendectomy (Chronic) Family History Sister Leukemia Mother Cancer Father Cancer Social History Preferred Language: Croatian Communication Ability: Effective Corporate Accounting Manager Required: No Beliefs That Will Affect Care: None marital status: Current Living Situation: Spouse Other Information That Helps Us Care for You: No Feels Safe at Home: Yes Safety Concerns: Feels Safe At This Time Smoking Status: Never smoker Do You Dip or Chew Tobacco: No ; Second Hand Exposure: Yes ; Tobacco Cessation Education Requested by Patient: No Hx Alcohol Use: No Hx Substance Use: No Review of Systems Review of Systems: All systems reviewed & are unremarkable except as noted in HPI & below Physical Exam Constitutional: + ill appearing and + cachectic; no acute distress Eyes: no nystagmus ENMT: Ears: no hearing impairment Neck: trachea midline Respiratory: no respiratory distress and no cough Cardiovascular: Vessels: no JVD slight right ankle swelling Chest (Breasts): Chest: normal inspection of chest Gastrointestinal (Abdomen): Inspection/Auscultation: abdomen not distended and no abdominal edema Percussion/Palpation: abdomen soft; abdomen nontender Musculoskeletal: Head/Neck/Chest: normocephalic and head atraumatic Skin: no rashes, warm and dry Neurologic: awake; not confused and not obtunded Psychiatric: Orientation: alert and oriented x 3 Eye Contact: + fair eye contact Affect: no depressed affect slow, weakened speech in good spirits Genitourinary: bermudez draining clear, minimal sediment Lymphatic: + lymphadenopathy Results & Data Vital Signs (Past 12 Hours) Vital Signs Temp Pulse Pulse Resp BP Pulse Ox 12/18/18 07:55 36.3 C L 62 18 85/47 L 96 12/18/18 03:27 36.4 C L 89 22 98/61 L 98 12/18/18 01:48 36.7 C 94 H 18 100/61 94 12/17/18 23:43 97 12/17/18 23:39 37.5 C 94 H 24 96/61 L 84 L 12/17/18 23:14 91 H
[2018-12-18] MEDS: POTASSIUM CHLORIDE / WTR 10 MEQ/100 ML PLCT IV SCH ×3 (08:55→11:51)
[2018-12-18] MEDS ORDERED: VANCOMYCIN HCL 1,000 MG in SODIUM CHLORIDE 0.9% 250 ML IV ONE (09:15)
--- NOTE | 2018-12-18 09:33 | Pharmacy Report ---
Pharmacy Abx Dose Short Note - Date of Service December 18, 2018 - Assessment & Plan Assessment * 78 year old F receiving VANCOMYCIN + ZOSYN for sepsis likely secondary to urinary or intraabdominal source. Patient does have a h/o pelvic mass w/ soft tissue invasion causing urinary obstruction w/ bilateral ureteral stents. CT was also concerning for infectious enterocolitis. * Day #2 of ZOSYN, Day #1 VANCOMYCIN * Pt is hypotensive this AM * WBC stable, but mildly elevated * Urine cx is growing staph aureus - sensitivities pending * Stool neg for c diff antigen, cx still pending * BLCX's pending * Renal fxn improving SCr 1.21-->0.87. Patient does have malnutrition, thus SCr may not be as accurate for estimating of renal fxn and drug clearance Plan Vancomycin * Loading dose: 1000mg (~19mg/kg) * Maint dose: 750mg (~15mg/kg) IV Q 18 hrs * Goal trough level for sepsis (until HUNTER's of staph known) : 15 to 20 mcg/mL * Trough level ordered for: 12/20 with 3rd maint dose Zosyn * eCrCl > 20, BMI < 35, continue 3.375gm ext-infusion Q 8 hrs Pharmacy will continue to follow and will adjust dose/frequency as necessary. Thank you.
--- NOTE | 2018-12-18 09:48 | Consultation ---
Date of Consultation December 18, 2018 Assessment & Plan (1) DVT (deep venous thrombosis): Pt with DVT and gross hematuria with anemia. Pt discussed with Dr Diggs, recommends IVC filter insertion later this morning d/t risks of further bleeding on AC. Pt and family agreeable. Patient was seen, examined, and chart reviewed. Agree with exam and treatment plan of the Vascular PA. Patient for insertion of filter today. I have discussed the risks options and benefits of the procedure with the patient. The patient understands the risks options and benefits and agrees to the procedure. History of Present Illness Reason for Consultation: DVT, gross hematuria, need IVC filter Attending Physician: Magalys Foreman MD History of Present Illness 78 yo f with recent dx of B cell lymphoma and large pelvic mass, admitted with AMS and a fall at home, noted to have gross hematuria, seen in consultation today for possible IVC filter insertion after discovery of extensive RLE DVT. Pt states has had RLE pain and edema for past few weeks, but never had it evaluated. Per family pt was to start treatments for her lymphoma today, but this will obviously be postponed. UTI also noted on initial eval here, currently on zosyn. Pt admits fatigue, malaise, RLE pain and edema, anorexia and significant recent weight loss. Pt denies OVALLE, fever, chest pain, SOB, abd pain, N/V, rest pain, claudication, other complaints. Gross hematuria with anemia (hgb 8.1). Venous doppler demonstrates extensive RLE DVT. Allergies Allergy/AdvReac Type Severity Reaction Status Date / Time acetaminophen [From Vicodin] Allergy Swelling Verified 12/17/18 16:00 of Lip/Tongue/Throat hydrocodone [From Vicodin] Allergy Swelling Verified 12/17/18 16:00 of Lip/Tongue/Throat Home Medications Home Medications Medication Instructions Recorded Confirmed Type metoprolol succinate 25 mg PO QAM 11/11/18 12/17/18 History allopurinol 300 mg PO DAILY 12/17/18 12/17/18 History lisinopril 40 mg PO DAILY 12/17/18 12/17/18 History ondansetron HCl 8 mg PO Q8H PRN 12/17/18 12/17/18 History prednisone See Rx Instructions .ROUTE .COMPLEX 12/17/18 12/17/18 History prochlorperazine maleate 10 mg PO Q6H PRN 12/17/18 12/17/18 History tramadol 25 mg PO Q6H PRN 12/17/18 12/17/18 History Patient History Medical History Lymphoma (Chronic) diffuse large B-cell lymphoma History of hysterectomy (Chronic) MGUS (monoclonal gammopathy of unknown significance) (Chronic) Hypertension (Chronic) Cervical stenosis of spinal canal (Chronic) Surgical History Status post cystoscopy with ureteral stent placement (Chronic) History of appendectomy (Chronic) Family History Sister Leukemia Mother Cancer Father Cancer Social History Preferred Language: Grenadian Communication Ability: Effective Operations Developer Required: No Beliefs That Will Affect Care: None marital status: Current Living Situation: Spouse Other Information That Helps Us Care for You: No Feels Safe at Home: Yes Safety Concerns: Feels Safe At This Time Smoking Status: Never smoker Do You Dip or Chew Tobacco: No ; Second Hand Exposure: Yes ; Tobacco Cessation Education Requested by Patient: No Hx Alcohol Use: No Hx Substance Use: No Review of Systems Review of Systems: All systems reviewed & are unremarkable except as noted in HPI & below Physical Exam Constitutional: WD/WN, vitals as above well developed, well nourished, + ill appearing, + cachectic, + frail appearing, well groomed, cooperative, comfortable and + lethargic (but rouses easily, appropriate); not in distress and not combative Eyes: PERRL, conjunctivae normal, anicteric sclerae EOM intact bilaterally ENMT: external ear and nose normal, oropharynx normal Ears: no hearing i mpairment Nose: no nasal discharge Neck: trachea midline, no thyromegaly no neck crepitus and neck nontender Respiratory: normal respiratory effort, lungs clear to auscultation able to speak in complete sentences; does not use accessory muscles and no cough Auscultation: lungs clear to auscultation bilaterally and + diminished lung sounds; no rhonchi and no wheezes Cardiovascular: Rate/Rhythm: regular rate, regular rhythm and + bradycardic Heart Sounds: no gallop and no murmur Vessels: femoral pulses present, posterior tibial pulses present, dorsalis pedis pulses present, brachial pulses present and radial pulses present; no carotid bruit, no femoral bruit and + abnormal peripheral pulses Extremities: normal capillary refill and + edema (RLE +2) Gastrointestinal (Abdomen): normal bowel sounds, soft, nontender, no hepatosplenomegaly Inspection/Auscultation: abdomen normal to inspection and normal bowel sounds; abdomen not distended Percussion/Palpation: abdomen soft; abdomen nontender, no guarding and abdomen not rigid Musculoskeletal: no cyanosis or clubbing, extremities motor strength 5/5 Head/Neck/Chest: normocephalic, head atraumatic and neck supple Extremities: extremities normal to inspection and strength 5/5 throughout; full ROM of extremities Skin: no rashes, warm and dry normal turgor; no rashes, no lesions, no ulcers, no erythema, no eschar and no mottling Neurologic: moves all extremities and awake; no focal motor deficits and not confused Speech / Cognition: no expressive aphasia and no receptive aphasia Motor/Sensory: no tremor Cranial Nerves: EOM intact bilaterally, normal facial strength and tongue midline Psychiatric: Orientation: alert, oriented x 3 and cooperative Apperance: appropriately dressed and appropriately groomed Affect: euthymic affect Thought Process: goal directed thought process Cognition: recent memory grossly intact, remote memory grossly intact, attention grossly intact and language grossly intact Estimated Intelligence: average estimated intelligence Results & Data Vital Signs (Past 12 Hours) Vital Signs Temp Pulse Pulse Resp BP Pulse Ox 12/18/18 07:55 36.3 C L 62 18 85/47 L 96 12/18/18 03:27 36.4 C L 89 22 98/61 L 98 12/18/18 01:48 36.7 C 94 H 18 100/61 94 12/17/18 23:43 97 12/17/18 23:39 37.5 C 94 H 24 96/61 L 84 L 12/17/18 23:14 91 H
[2018-12-18] MEDS ORDERED: LIDOCAINE HCL 1% 20 ML VIAL ONE (09:54)
[2018-12-18] MEDS ORDERED: SODIUM CHLORIDE 0.9% 500 ML IV SCH (10:20)
--- NOTE | 2018-12-18 10:26 | Pre Anesthesia Assessment ---
Date of Service December 18, 2018 Pre Sedation Assessment Vital Signs Temp Pulse Pulse Resp BP BP Pulse Ox 12/18/18 10:23 37 C 85 18 94/51 L 94 12/18/18 07:55 36.3 C L 62 18 85/47 L 96 12/18/18 03:27 36.4 C L 89 22 98/61 L 98 12/18/18 01:48 36.7 C 94 H 18 100/61 94 12/17/18 23:43 97 12/17/18 23:39 37.5 C 94 H 24 96/61 L 84 L 12/17/18 23:14 91 H 12/17/18 20:31 92 H 12/17/18 19:39 37 C 97 H 16 105/58 L 97 12/17/18 18:30 94 H 25 H 129/73 96 12/17/18 18:15 94 H 25 H 121/90 96 12/17/18 18:01 96 H 14 112/83 12/17/18 17:45 98 H 21 136/80 12/17/18 17:30 99 H 22 132/75 97 12/17/18 17:15 96 H 21 119/73 98 12/17/18 17:00 100 H 24 90/62 L 84 L 12/17/18 16:53 104 H 23 125/72 94 12/17/18 16:01 72 24 98/48 L 12/17/18 15:43 127 H 34 H 127/78 12/17/18 15:30 124 H 33 H 115/69 12/17/18 15:16 121 H 33 H 96/65 L 12/17/18 14:51 37.5 C 82 20 68/53 L 99 Cardiovascular RRR, no murmur, no edema Respiratory normal respiratory effort, lungs clear to auscultation Pre-Sedation Airway Assessment Smoking Status: Never smoker Hx Sleep Apnea: No Short, Thick Neck: No Thyromental Distance: > or= 3.5 Finger Breadths Oral Cavity: + WNL Mallampati Class: II ASA: ASA3 NPO Status Date of Last Intake of Fluids: 12/17/18 Time of Last Intake of Fluids: 23:00 Date of Last Intake of Solid Food: 12/17/18 Time of Last Intake of Solid Foods: 21:00 Procedure Planning Contraindications for Sedation: none Current Medications Reviewed: Yes Notes The planned sedation has been discussed with the patient. Informed Consent was obtained. I have identified the patient, determined the appropriateness of sedation and have assessed the patient immediately prior to the procedure. All medicine(s) and interventions are by my order.
[2018-12-18] MEDS ORDERED: fentaNYL citrate 100 MCG/2 ML VIAL ONE (10:43)
[2018-12-18] MEDS ORDERED: MIDAZOLAM HCL 1 MG/ML 2ML VIAL ONE (10:44)
[2018-12-18] MEDS ORDERED: VISIPAQUE IV PRN (11:19)
--- NOTE | 2018-12-18 11:24 | Post Operative Brief Note ---
Immediate Post Op Note v1 Date of Surgery December 18, 2018 Pre & Post Diagnosis Operation Date: 12/18/18 11:00 Pre-Op Diagnosis: Deep Vein Thrombosis, Contraindication for Anticoagulation Post-Op Diagnosis: Deep Vein Thrombosis, Contraindication for Anticoagulation Procedure Operation Date: 12/18/18 11:00 Actual Procedures p Insertion of Inferior Vena Cava Filter, Right Internal Jugular Appraoch, Ultrasound Loclaization of Right Internal Jugular Vein, Fluoroscopy for positioning, Moderate Sedation from 1050- 1122.(Right) - Salvatore Diggs MD Surgeon Salvatore Diggs MD Insole Presser MD Ariel Estimated Blood Loss 0 Findings Consistent with Post-Op Diagnosis Drains Mcgraw Catheter Anesthesia Type RN Sedation Complications none Disposition Accompanied Patient To Recovery: No Disposition: Recovery Room
--- NOTE | 2018-12-18 11:24 | Post Anesthesia Assessment ---
Date of Service December 18, 2018 Post Sedation Assessment Vital Signs Temp Pulse Pulse Resp BP BP Pulse Ox 12/18/18 11:22 75 16 91/52 L 96 12/18/18 11:17 76 16 89/56 L 100 12/18/18 11:15 76 16 89/54 L 100 12/18/18 11:10 82 16 89/51 L 100 12/18/18 11:05 76 17 80/49 L 100 12/18/18 11:00 77 19 86/51 L 100 12/18/18 10:55 74 19 93/53 L 100 12/18/18 10:50 76 16 98/62 L 100 12/18/18 10:45 78 15 96/57 L 100 12/18/18 10:23 37 C 85 18 94/51 L 94 12/18/18 07:55 36.3 C L 62 18 85/47 L 96 12/18/18 03:27 36.4 C L 89 22 98/61 L 98 12/18/18 01:48 36.7 C 94 H 18 100/61 94 12/17/18 23:43 97 12/17/18 23:39 37.5 C 94 H 24 96/61 L 84 L 12/17/18 23:14 91 H 12/17/18 20:31 92 H 12/17/18 19:39 37 C 97 H 16 105/58 L 97 12/17/18 18:30 94 H 25 H 129/73 96 12/17/18 18:15 94 H 25 H 121/90 96 12/17/18 18:01 96 H 14 112/83 12/17/18 17:45 98 H 21 136/80 12/17/18 17:30 99 H 22 132/75 97 12/17/18 17:15 96 H 21 119/73 98 12/17/18 17:00 100 H 24 90/62 L 84 L 12/17/18 16:53 104 H 23 125/72 94 12/17/18 16:01 72 24 98/48 L 12/17/18 15:43 127 H 34 H 127/78 12/17/18 15:30 124 H 33 H 115/69 12/17/18 15:16 121 H 33 H 96/65 L 12/17/18 14:51 37.5 C 82 20 68/53 L 99 Recovery Score Activity: Moves 4 extremities Respiration: Deep Breath/Cough Circulation: +/-20% PreAnes Value Consciousness: Arouseable (by name) Oxygen Saturation: O2 needed for >90% Post Anesthesia Score: 8 Discharge Sedation Level of Care: Fast Track Phase II Post Sedation Plan On clinical assessment, the patient appears to have tolerated the sedation without complications. Patient is recovering as anticipated. Patient will continue to be monitored by nursing and may be discharged when sedation discharge criteria are met per below protocol. Upon Completions of procedure and additional 15 minutes continue every 5 minute vital signs and the P.A.R. score; then discharge to a Phase I or Fast Track to Phase II per the following guidelines: * Discharge Patient to appropriate Phase II area if PAR is 8 or greater or return to pre- procedure baseline. The post - procedure orders will be as directed. * If PAR score is less than 8 or not return to pre-procedure baseline then patient will follow Phase I monitoring till PAR is reached for Phase II. The Phase I may be done in procedure room or may call to secure a Phase I area. * If naloxone or flumazenil are used for reversal, hold in Phase I for continued monitoring from when last reversal dose was given for a minimum of 60 minutes or longer pending the nurse and/or physician discretion of patient condition before discharge to Phase II. Please call the Sedation Physician to re-evaluate and complete post-note for discharge to Phase II area. Do NOT discharge from procedure sedation or Phase 1 until post- sedation evaluation note is complete by procedure /sedation MD Sedation Discharge Instructions to be given to the patient at discharge to home.
--- NOTE | 2018-12-18 11:30 | Procedure Note ---
Angiogram Post Procedure Conscious Sedation Time (minutes): 32 Post Operative Report Pre & Post Diagnosis Operation Date: 12/18/18 11:00 Pre-Op Diagnosis: Deep Vein Thrombosis, Contraindication for Anticoagulation Post-Op Diagnosis: Deep Vein Thrombosis, Contraindication for Anticoagulation Procedure Operation Date: 12/18/18 11:00 Actual Procedures p Insertion of Inferior Vena Cava Filter, Right Internal Jugular Appraoch, Ultrasound Loclaization of Right Internal Jugular Vein, Fluoroscopy for positioning, Moderate Sedation from 1050-(Right) - Salvatore Diggs MD Surgeon Salvatore Diggs MD Casino Slot Supervisor Ayaan Lopez MD Estimated Blood Loss 0 Findings Consistent with Post-Op Diagnosis Specimens None Anesthesia Type RN Sedation Complications none Disposition Disposition: Recovery Room Indications Debra Mccauley is a 78 year old women who has extensive RLE DVTs and is unable to be anticoagulated due to gross hematuria causing anemia. She was offered placement of a IVC filter and agreed to proceed with the procedure. The risks and benefits of the procedure were discussed and consent was signed. Description of Procedure The patient was brought to the angio suite and placed in the supine position. A time out was preformed identifying patient and procedure. The right side of the neck was prepped and draped in the usual fashion. The right internal jugular vein was located with ultrasound. It was patent, compressed easily, and had no filling defects. The vein was then punctured under ultrasound visualization. A guidewire was then passed centrally with some difficulty as the wire was passing into the ventricle. The dilator was placed and used to advance the wire into the inferior vena cava under fluoroscopic guidance. The filter sheath inserted. It was passed to the infra renal vena cava. A venacavagram was done which showed no cava clot and an acceptable size. The renal veins were identified. The filter was then passed through the sheath and deployed in the infra renal vena cava in an upright position. Satisfied with the positioning of the filter, the sheath was removed. Pressure was applied to the puncture site. Adequate hemostasis was obtained and a sterile dressing was applied. The patient left the angio suite in good condition and tolerated the procedure well. I attest to the content of the Intraoperative Record and any orders documented therein. Any exceptions are noted below.
[2018-12-18 13:01] LABS: Hematocrit (blood only) 24.7 % (37-47); Hemoglobin 7.8 g/dL (12.0-16.0)
--- NOTE | 2018-12-18 13:41 | Hospitalist Progress Note ---
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 given IV fluid bolus in ER continued IVF @ 125ml/hr source of infection complicated UTI -bilateral obstructed uropahty due pelvic mass ( large B cell lymphoma ) /bladder involvement with lymphoma met criteria with sepsis : presented with elevated white count , tachycardia , hypotension , elevated lactic acid , pro calcitonin level pt was started on Iv zosyn added Vancomycin ; urine culture : gram positive cocci Stool negative for C. difficile per PCR. follow blood culture ACUTE BLOOD LOSS ANEMIA : due to gross hematuria hb drop noted form 11.1 ( possible hemoconcentration from dehydration -baseline hb ~8.5 ) to 7.8 2 units of PRBC typed and crossed follow H&H transfuse for HB < 7 (3) Diarrhea: Experiencing diarrhea for the past several days. CT of abdomen and pelvis demonstrates enterocolitis. Recently took ciprofloxacin for cystoscopy. However, stool C. difficile PCR negative. Stool culture for routine enteric pathogens ordered. Consider repeating C. difficile testing if no improvement of diarrhea in a few days. (4) Abnormal urinalysis: Gross hematuria via Bermudez catheter noted. Has bilateral ureteral stents for bilateral hydronephrosis from pelvic mass. Urinalysis shows 3+ protein, 3+ blood, positive nitrates, positive leukocyte esterase, greater than 30 RBCs, greater than 30 WBCs, 5-10 epithelial cells, 1+ bacteria. Probable urinary tract infection. Intravenous piperacillin/tazobactam pending culture results. (5) Altered mental status: Family has noted confusion. Patient unable to state the day of the week with the current president in the ED. Easily distracted. mental status improved today Probable delirium /metabolic encephalopathy from acute illness. Avoid anticholinergic medications and other medications with BASEBALL SEWER HAND side effects whenever possible. (6) Hypertension: History of hypertension, treated with metoprolol and lisinopril. Hold antihypertensive medications in light of hypotension. Follow blood pressures and reinitiate medications as necessary. (7) Lymphoma: Recently found to have a large pelvic mass. Cystoscopy performed for bilateral ureteral stent placement because of bilateral hydronephrosis with acute kidney injury. Pelvic mass extended to the urinary bladder and biopsy was performed which demonstrated a diffuse large B-cell lymphoma. Seen in consultation by Dr. Sharpe. Chemotherapy was planned for this week, but will have to be postponed until her acute problems have stabilized and her functional status permits. (8) Abnormal CT scan, chest: CT of chest demonstrates a 5 cm left lower lobe mass. Mass may be secondary to lymphoma or, perhaps, another malignancy. Further evaluation/management per Hematology/Oncology. (9) Severe malnutrition: Cachectic. 20-30 lb wt loss. Severe malnutrition due to underlying malignancy. Consult Clinical Analyst. (10) DVT prophylaxis: No anticoagulants because of gross hematuria. s/p IVC filter placement (11) Discharge planning issues: Discharge disposition to be determined. Family Medicine follow-up with Dr. Natacha King. Hematology/oncology follow-up with Dr. Sharpe. (12) Gross hematuria: (13) Pelvic mass: (14) Malnutrition, calorie: (15) Lung mass: Subjective pt reports of feeling very tired and weak s/p IVC filter placement today no fever or chills was Hypotensive this morning SBP in low 90's did not had any symptom of dizzy spell or lightheadedness BP improved after IV hydration gross hematuria resolved bermudez draining concentreated destiney colour urine pt denies of any abdominal pain , no nausea no chest pain or SOB Review of Systems Constitutional: + weight loss (20-30 lbs); no fever Physical Exam Constitutional: + ill appearing, + thin and + cachectic; no acute distress Eyes: PERRL, conjunctivae normal, anicteric sclerae ENMT: Mouth: + oral mucosal abnormality (dry mucous membrane ) Respiratory: no respiratory distress and no cough Auscultation: + rales Cardiovascular: RRR, no murmur, no edema Gastrointestinal (Abdomen): Percussion/Palpation: abdomen soft; abdomen nontender Musculoskeletal: generalized weakness Neurologic: PERRL, EOMI, accommodation nl, no face palsy, no dysarthria Psychiatric: A+Ox3, euthymic affect Results & Data Vital Signs (Past 12 Hours) Vital Signs Temp Pulse Pulse Resp BP BP Pulse Ox 12/18/18 12:56 68 20 86/50 L 98 12/18/18 12:26 72 20 88/51 L 98 12/18/18 12:11 75 20 95/59 L 97 12/18/18 11:56 73 20 83/49 L 97 12/18/18 11:41 36.3 C L 76 20 92/55 L 99 12/18/18 11:22 75 16 91/52 L 96 12/18/18 11:17 76 16 89/56 L 100 12/18/18 11:15 76 16 89/54 L 100 12/18/18 11:10 82 16 89/51 L 100 12/18/18 11:05 76 17 80/49 L 100 12/18/18 11:00 77 19 86/51 L 100 12/18/18 10:55 74 19 93/53 L 100 12/18/18 10:50 76 16 98/62 L 100 12/18/18 10:45 78 15 96/57 L 100 12/18/18 10:23 37 C 85 18 94/51 L 94 12/18/18 07:55 36.3 C L 62 18 85/47 L 96 12/18/18 03:27 36.4 C L 89 22 98/61 L 98 12/18/18 01:48 36.7 C 94 H 18 100/61 94 (1) Diarrhea Diarrhea type: unspecified type Qualified Code(s): R19.7 - Diarrhea, unspecified (2) Hypotension Hypotension type: unspecified hypotension type Qualified Code(s): I95.9 - Hypotension, unspecified
[2018-12-19] MEDS: VANCOMYCIN HCL 750 MG in SODIUM CHLORIDE 0.9% 250 ML IV SCH ×2 (03:07→20:48)
[2018-12-19 07:09] LABS: Basophils # (auto) 0.02 K/uL (0-0.2); Basophils % (auto) 0.2 %; Eosinophils # (auto) 0.27 K/uL (0-0.5); Eosinophils % (auto) 2.7 %; Hematocrit (blood only) 23.8 % (37-47); Hemoglobin 7.5 g/dL (12.0-16.0); Immature Granulocytes # (auto) 0.02 K/uL (0.00-0.02); Immature Granulocytes % (auto) 0.2 %; Lymphocytes # (auto) 0.96 K/uL (1.2-3.4); Lymphocytes % (auto) 9.7 %; Mean Corpuscular Hemoglobin 26.1 pg (25-34); Mean Corpuscular Hgb Conc 31.5 g/dL (32-36); Mean Corpuscular Volume 82.9 fL (80-100); Mean Platelet Volume 8.9 fL (7.4-10.4); Monocytes # (auto) 0.71 K/uL (0.11-0.59); Monocytes % (auto) 7.2 %; Neutrophils # (auto) 7.87 K/uL (1.4-6.5); Platelet Count 226 K/uL (130-400); RDW Standard Deviation 55.3 fL (36.4-46.3); Red Blood Count 2.87 M/uL (4.2-5.4); White Blood Count 9.85 K/uL (4.8-10.8)
[2018-12-19 07:35] LABS: Microcytosis Present
[2018-12-19 07:45] LABS: Albumin Level 1.6 gm/dl (3.4-5.0); BUN Creatinine Ratio 26.4 (10-20); Calcium 8.5 mg/dl (8.5-10.1); Creatinine Clr Calc Pharmacy 49.5 ml/min; Est GFR (African American) 86.3; Est GFR (Non-African American) 74.5; Magnesium 1.7 mg/dl (1.8-2.4); Potassium 3.6 mmol/L (3.5-5.1)
[2018-12-19 07:50] LABS: Albumin Globulin Ratio 0.5 (0.9-2); Bilirubin,Total 0.6 mg/dl (0.2-1); Globulin 3.3 gm/dl (2.5-4.0); Total Protein 4.9 gm/dl (6.4-8.2)
[2018-12-19] MEDS: allopurinoL 300 MG TAB PO SCH (08:13)
[2018-12-19] MEDS: PIPERACILLIN/TAZOBACTAM 3.375 GM in DEXTROSE 5% 100 ML IV SCH (08:14)
[2018-12-19] MEDS ORDERED: MAGNESIUM SULFATE / D5W 1 GM/100 ML BAG IV ONE (09:45)
--- NOTE | 2018-12-19 11:25 | Urology Progress Note ---
Date of Service December 19, 2018 Assessment & Plan (1) Gross hematuria: 78yo F with diffuse large B-Cell lymphoma, hypotension, bilateral ureteral stent and indwelling bermudez catheter, suspected UTI. UC&S final - MRSA. Discussed with Dr. Hamilton, no need for isolation precautions. Okay to de-escalate antibiotic coverage based upon cultures, recommend bactrim 5-7 more days. Continue bermudez with monthly changes. We do not feel her UTI is the main source of her overall decline. We highly recommend pt prompt followup regarding management of her lymphoma, very high risk. Thank you for allowing us to participate in the acute care of Ms. Mccauley. We will continue to follow peripherally while inpatient. We will see her as an outpatient as scheduled. Subjective 78yo F with diffuse large B-Cell lymphoma, hypotension, bilateral ureteral stent and indwelling bermudez catheter, suspected UTI. Past notes reviewed. IVC filter placed yesterday. Pt continues to be very weak, lethargic. Easily arousable to light touch today. UC&S final growing >100,000cfu MRSA. Review of Systems Review of Systems: All systems reviewed & are unremarkable except as noted in HPI & below Physical Exam Constitutional: no acute distress and not ill appearing Eyes: no nystagmus ENMT: Ears: no hearing impairment Neck: trachea midline Respiratory: no respiratory distress and no cough Cardiovascular: Vessels: no JVD Chest (Breasts): Chest: normal inspection of chest Gastrointestinal (Abdomen): Inspection/Auscultation: abdomen not distended and no abdominal edema Percussion/Palpation: abdomen soft; abdomen nontender Musculoskeletal: Head/Neck/Chest: normocephalic and head atraumatic Skin: no rashes, warm and dry Neurologic: awake; not confused and not obtunded Psychiatric: Orientation: alert and oriented x 3 Eye Contact: good eye contact Affect: no depressed affect Genitourinary: bermudez draining clear yellow Lymphatic: no lymphadenopathy and no lymphedema Results & Data Vital Signs (Past 12 Hours) Vital Signs Temp Pulse Pulse Resp BP Pulse Ox 12/19/18 07:01 36.6 C 76 17 109/61 97 12/19/18 03:55 36.4 C L 70 19 105/62 97 12/19/18 00:24 76 12/18/18 23:27 36.5 C 81 19 101/59 L 96
[2018-12-19 14:08] LABS: Hematocrit (blood only) 24.8 % (37-47); Hemoglobin 7.8 g/dL (12.0-16.0)
--- NOTE | 2018-12-19 17:19 | Hospitalist Progress Note ---
Date of Service December 19, 2018 Assessment & Plan (1) DVT (deep venous thrombosis): Right lower ext occlusive DVT In setting of metastatic B cell Lymphoma S/P IVC filter placement Not a candidate for anticoagulation due to gross hematuria /acute blood loss anemia Overall prognosis is poor (2) Hypotension: Possible due to sepsis /intravascular volume depletion BP improved with IV fluids Hold lisinopril, metoprolol until blood pressure improves Monitor BP Sepsis Complicated UTI B/L Obstructive Uropathy due pelvic mass-- large B cell lymphoma H/O bilateral ureteral stent, indwelling Mcgraw catheter Blood Cx: No growth to date Urine culture MRSA IV Zosyn, vancomycin transition to IV vancomycin Plan to transition to Bactrim as able Stool negative for C. difficile per PCR. Appreciate urology input Acute blood loss Anemia: Due to gross hematuria S/P hb drop noted form 11.1 ( possible hemoconcentration from dehydration - baseline hb ~8.5 ) to 7.8 Monitor H&H Transfuse PRBCs as needed (3) Diarrhea: Experiencing diarrhea for the past several days. CT of abdomen and pelvis demonstrates enterocolitis. Recently took ciprofloxacin for cystoscopy. However, stool C. difficile PCR negative. Stool culture for routine enteric pathogens ordered. Consider repeating C. difficile testing if no improvement of diarrhea in a few days. (4) Abnormal urinalysis: Gross hematuria via Mcgraw catheter noted. Has bilateral ureteral stents for bilateral hydronephrosis from pelvic mass. Urinalysis shows 3+ protein, 3+ blood, positive nitrates, positive leukocyte esterase, greater than 30 RBCs, greater than 30 WBCs, 5-10 epithelial cells, 1+ bacteria. Probable urinary tract infection. Intravenous piperacillin/tazobactam pending culture results. (5) Altered mental status: Metabolic encephalopathy Likely secondary to infection Possible delirium Avoid anticholinergic medications and other medications with TEACHER EDUCATION INSTRUCTOR side effects whenever possible. (6) Hypertension: Currently hypotensive Home medications on hold Hold antihypertensive medications due to hypotension. (7) Lymphoma: Recently found to have a large pelvic mass. Cystoscopy performed for bilateral ureteral stent placement because of bilateral hydronephrosis with acute kidney injury. Pelvic mass extended to the urinary bladder and biopsy was performed which demonstrated a diffuse large B-cell lymphoma. Seen in consultation by Dr. Sharpe. Chemotherapy not initiated yet Needs follow-up with oncology upon discharge (8) Abnormal CT scan, chest: CT of chest demonstrates a 5 cm left lower lobe mass. Mass may be secondary to lymphoma or, perhaps, another malignancy. Further evaluation/management per Hematology/Oncology. (9) Severe malnutrition: Cachectic. 20-30 lb wt loss. Severe malnutrition due to underlying malignancy. Consulted Coat Hanger Shaper Machine Operator. (10) DVT prophylaxis: No anticoagulants due to gross hematuria. s/p IVC filter placement (11) Discharge planning issues: To be determined. Family Medicine follow-up with Dr. Natacha King. Hematology/oncology follow-up with Dr. Sharpe. May need rehab placement (12) Gross hematuria: (13) Pelvic mass: (14) Malnutrition, calorie: (15) Lung mass: Subjective Patient is seen and examined at bedside Complains of right leg pain Also has generalized weakness Appetite better today Urine culture growing MRSA Denies any chest pain, shortness of breath, dizziness, nausea Reports abdominal pain on palpation Review of Systems Review of Systems: All systems reviewed & are unremarkable except as noted in HPI & below Physical Exam Physical Exam: Physical Exam: Vitals signs as noted above General Appearance:Thin, frail, ill appearing no apparent distress Head: normocephalic, Atraumatic Eyes: normal inspection, EOMI Neck: supple, Trachea midline Respiratory/Chest: Normal breath sounds, CTA Cardiovascular: S1, S2, No murmur Abdomen/GI:Soft, + tender, Bowel sounds present Extremities/Musculoskelatal:normal inspection, no edema Neurologic/Psych:AAOX3, grossly no focal neurological deficits Skin: normal color, warm Results & Data Vital Signs (Past 12 Hours) Vital Signs Temp Pulse Pulse Resp BP BP Pulse Ox 12/19/18 15:07 36.5 C 86 94/60 L 98 12/19/18 12:02 36.6 C 82 17 107/67 98 12/19/18 07:01 36.6 C 76 17 109/61 97 Laboratory Results Short CBC 12/19/18 12/19/18 Range/Units 06:56 13:54 WBC 9.85 (4.8-10.8) K/uL Hgb 7.5 L 7.8 L (12.0-16.0) g/dL Hct 23.8 L 24.8 L (37-47) % Plt Count 226 (130-400) K/uL BMP 12/19/18 06:56 Sodium 143 Potassium 3.6 Chloride 114 H Carbon Dioxide 22 BUN 20 H Creatinine 0.77 Glucose 69 L Calcium 8.5 Liver Function 12/19/18 Range/Units 06:56 Total Bilirubin 0.6 D (0.2-1) mg/dl AST 18 (15-37) U/L ALT 6 L (12-78) U/L Alkaline Phosphatase 75 (45-117) U/L Albumin 1.6 L (3.4-5.0) gm/dl (1) Hypotension Hypotension type: unspecified hypotension type Qualified Code(s): I95.9 - Hypotension, unspecified (2) Diarrhea Diarrhea type: unspecified type Qualified Code(s): R19.7 - Diarrhea, unspecified
[2018-12-20 06:44] LABS: Basophils # (auto) 0.04 K/uL (0-0.2); Basophils % (auto) 0.4 %; Eosinophils # (auto) 0.28 K/uL (0-0.5); Eosinophils % (auto) 2.9 %; Hematocrit (blood only) 25.8 % (37-47); Hemoglobin 8.1 g/dL (12.0-16.0); Immature Granulocytes # (auto) 0.04 K/uL (0.00-0.02); Immature Granulocytes % (auto) 0.4 %; Lymphocytes # (auto) 0.87 K/uL (1.2-3.4); Mean Corpuscular Hemoglobin 26.5 pg (25-34); Mean Corpuscular Hgb Conc 31.4 g/dL (32-36); Mean Corpuscular Volume 84.3 fL (80-100); Mean Platelet Volume 8.7 fL (7.4-10.4); Monocytes # (auto) 0.74 K/uL (0.11-0.59); Monocytes % (auto) 7.6 %; Neutrophils # (auto) 7.73 K/uL (1.4-6.5); Neutrophils % (auto) 79.7 %; Platelet Count 259 K/uL (130-400); RDW Coefficient of Variation 17.5 % (11.5-14.5); RDW Standard Deviation 54.1 fL (36.4-46.3); Red Blood Count 3.06 M/uL (4.2-5.4)
[2018-12-20 07:22] LABS: Albumin Level 1.7 gm/dl (3.4-5.0); BUN Creatinine Ratio 22.4 (10-20); Calcium 8.8 mg/dl (8.5-10.1); Creatinine Clr Calc Pharmacy 50.2 ml/min; Est GFR (African American) 87.7; Est GFR (Non-African American) 75.7; Magnesium 1.9 mg/dl (1.8-2.4); Potassium 3.9 mmol/L (3.5-5.1)
[2018-12-20 07:25] LABS: Albumin Globulin Ratio 0.5 (0.9-2); Bilirubin,Total 0.4 mg/dl (0.2-1); Globulin 3.5 gm/dl (2.5-4.0); Total Protein 5.2 gm/dl (6.4-8.2)
[2018-12-20] MEDS: allopurinoL 300 MG TAB PO SCH (09:07)
[2018-12-20] MEDS: DOXYCYCLINE HYCLATE 100 MG CAP PO SCH ×2 (11:51→21:50)
[2018-12-20] MEDS ORDERED: VANCOMYCIN TROUGH ONE (15:30)
--- NOTE | 2018-12-20 16:18 | Hospitalist Progress Note ---
Date of Service December 20, 2018 Assessment & Plan (1) DVT (deep venous thrombosis): Right lower extensive occlusive DVT In setting of metastatic B cell Lymphoma S/P IVC filter placement Not a candidate for anticoagulation due to gross hematuria /acute blood loss anemia Overall prognosis is Very poor (2) Hypotension: Possible due to sepsis /intravascular volume depletion BP improved with IV fluids Hold lisinopril, metoprolol until blood pressure tolerates Monitor BP Sepsis Complicated UTI B/L Obstructive Uropathy due pelvic mass-- large B cell lymphoma H/O bilateral ureteral stent, indwelling Mcgraw catheter Possible Bronchitis Blood Cx: No growth to date Urine culture: MRSA IV Zosyn, vancomycin transition to IV vancomycin Added Doxycycline Stool negative for C. difficile per PCR. Appreciate urology input Acute blood loss Anemia: Due to gross hematuria S/P hb drop noted form 11.1 (Possible hemoconcentration from dehydration - baseline hb ~8.5 ) Monitor H&H Transfuse PRBCs as needed (3) Diarrhea: Experiencing diarrhea for the past several days. CT of abdomen and pelvis demonstrates enterocolitis. Recently took ciprofloxacin for cystoscopy. However, stool C. difficile PCR negative. Stool culture:Negative Consider repeating C. difficile if diarrhea persist (4) Abnormal urinalysis: Complicated Urinary Tract Infection Has bilateral ureteral stents for bilateral hydronephrosis from pelvic mass. Urine Cx: MRSA Appreciate neurology input Continue IV vancomycin (5) Altered mental status: Metabolic encephalopathy--Resolved Likely secondary to infection Possible delirium Avoid anticholinergic medications and other medications with OPTIC FIBRE DRAWER side effects whenever possible. (6) Hypertension: BP improved with IV Fluids Resume home meds as able (7) Lymphoma: Recently found to have a large pelvic mass. Cystoscopy performed for bilateral ureteral stent placement because of bilateral hydronephrosis with acute kidney injury. Pelvic mass extended to the urinary bladder and biopsy was performed which demonstrated a diffuse large B-cell lymphoma. Seen in consultation by Dr. Sharpe. Chemotherapy not initiated yet Needs follow-up with oncology upon discharge (8) Abnormal CT scan, chest: CT of chest demonstrates a 5 cm left lower lobe mass. Mass may be secondary to lymphoma or, perhaps, another malignancy. Further evaluation/management per Hematology/Oncology. (9) Severe malnutrition: Cachectic. 20-30 lb wt loss. Severe malnutrition due to underlying malignancy. Consulted Alodize Machine Operator. (10) DVT prophylaxis: No anticoagulants due to gross hematuria. s/p IVC filter placement (11) Discharge planning issues: To be determined. Family Medicine follow-up with Dr. Natacha King. Hematology/oncology follow-up with Dr. Sharpe. May need rehab placement (12) Gross hematuria: (13) Pelvic mass: (14) Malnutrition, calorie: (15) Lung mass: Subjective Patient is seen and examined at bedside Reports cough with yellowish expectoration overnight Right leg pain Also complains of generalized abdominal pain, generalized weakness Denies any chest pain, shortness of breath, dizziness, nausea, dyuria Minimal blood in urinary catheter Hb stable Poor prognosis Review of Systems Review of Systems: All systems reviewed & are unremarkable except as noted in HPI & below Physical Exam Physical Exam: Physical Exam: Vitals signs as noted above General Appearance:Thin, frail, ill appearing no apparent distress Head: normocephalic, Atraumatic Eyes: normal inspection, EOMI Neck: supple, Trachea midline Respiratory/Chest: Normal breath sounds, CTA Cardiovascular: S1, S2, No murmur Abdomen/GI:Soft, + tender, Bowel sounds present Extremities/Musculoskelatal:normal inspection, no edema Neurologic/Psych:AAOX3, grossly no focal neurological deficits Skin: normal color, warm Results & Data Vital Signs (Past 12 Hours) Vital Signs Temp Pulse Pulse Resp BP Pulse Ox 12/20/18 15:08 37.1 C 95 H 16 121/70 92 12/20/18 11:35 36.8 C 85 16 129/72 97 12/20/18 09:00 90 12/20/18 07:45 36.6 C 85 18 120/66 96 Laboratory Results Short CBC 12/20/18 Range/Units 06:30 WBC 9.70 (4.8-10.8) K/uL Hgb 8.1 L (12.0-16.0) g/dL Hct 25.8 L (37-47) % Plt Count 259 (130-400) K/uL BMP 12/20/18 06:30 Sodium 142 Potassium 3.9 Chloride 113 H Carbon Dioxide 22 BUN 17 Creatinine 0.76 Glucose 78 Calcium 8.8 Liver Function 12/20/18 Range/Units 06:30 Total Bilirubin 0.4 (0.2-1) mg/dl AST 17 (15-37) U/L ALT 6 L (12-78) U/L Alkaline Phosphatase 79 (45-117) U/L Albumin 1.7 L (3.4-5.0) gm/dl (1) Hypotension Hypotension type: unspecified hypotension type Qualified Code(s): I95.9 - Hypotension, unspecified (2) Diarrhea Diarrhea type: unspecified type Qualified Code(s): R19.7 - Diarrhea, unspecified
[2018-12-20] MEDS: VANCOMYCIN HCL 750 MG in SODIUM CHLORIDE 0.9% 250 ML IV SCH (16:27)
[2018-12-20] MEDS: LACTOBACILLUS ACIDOPHILUS (FLORANEX) TAB PO SCH ×2 (17:11→21:50)
[2018-12-20] MEDS: ACETAMINOPHEN 325 MG TAB PO PRN (17:18)
--- NOTE | 2018-12-20 17:23 | Pharmacy Report ---
Pharmacy Abx Dose Short Note - Date of Service December 20, 2018 - Assessment & Plan Assessment 78 year old F receiving Vancomycin 750mg q18h for treatment of UTI with confirmed MRSA. Day # 3 of antimicrobial therapy. Procal peaked at 13.4, rechecked today 5.38. Will be checked again in the AM. Renal function stable. Urine culture results growing MRSA, Vanc HUNTER = 1. Laboratory Tests 12/20/18 15:24 Vancomycin Trough 10.1 Plan Vancomycin * Trough level of 10.1 mcg/mL is subtherapeutic. * Change to 750 mg IV every 14 hours - anticipate change will result in level ~15. * Goal trough level: 15 to 20 mcg/mL * Trough level ordered for: 12/23/18 with 0000 dose. Pharmacy will continue to follow and will adjust dose/frequency as necessary. Thank you.
[2018-12-21] MEDS: ACETAMINOPHEN 325 MG TAB PO PRN (02:32)
[2018-12-21] MEDS ORDERED: VANCOMYCIN HCL 750 MG in SODIUM CHLORIDE 0.9% 250 ML IV SCH (06:00)
[2018-12-21 06:58] LABS: Hematocrit (blood only) 26.5 % (37-47); Hemoglobin 8.4 g/dL (12.0-16.0)
[2018-12-21 07:32] LABS: BUN Creatinine Ratio 22.2 (10-20); Calcium 8.8 mg/dl (8.5-10.1); Creatinine Clr Calc Pharmacy 41.9 ml/min; Est GFR (African American) 70.5; Est GFR (Non-African American) 60.9; Magnesium 1.8 mg/dl (1.8-2.4)
[2018-12-21] MEDS: LACTOBACILLUS ACIDOPHILUS (FLORANEX) TAB PO SCH ×4 (08:20→20:15)
[2018-12-21] MEDS: allopurinoL 300 MG TAB PO SCH (08:20)
[2018-12-21] MEDS: DOXYCYCLINE HYCLATE 100 MG CAP PO SCH ×2 (08:20→20:15)
--- NOTE | 2018-12-21 12:39 | Urology Progress Note ---
Date of Service December 21, 2018 Assessment & Plan (1) Gross hematuria: 78yo F with diffuse large B-Cell lymphoma, hypotension, bilateral ureteral stent and indwelling bermudez catheter, MRSA UTI. Hgb stable at 8.4, has not recieved transfusion during admission. Dr Henson made aware of worsening hematuria, per nursing has been at least since yesterday. He feels she is likely bleeding from pelvic mass into bladder. We can consider 3-way irrigation however this will not likely not treat this issue. She will not benefit from surgical intervention from standpoint at this point. We do recommend prompt initiation of chemotherapy, as this aggressive cancer is likely the source of her decline. Primary service made aware. Thank you for allowing us to participate in the acute care of Ms. Mccauley. We will continue to follow. Please see additional comments per my attending physician as indicated. Subjective 78yo F with diffuse large B-Cell lymphoma, hypotension, bilateral ureteral stent and indwelling bermudez catheter, MRSA UTI. We have been asked to re-evaluate patient due to worsening hematuria. Pt now draining maroon colored urine, no clots noted. Pt has not required irrigation at this point. She is sitting up in bed, more alert than on previous exams. Pleasant and smillling. She denies any pelvic discomfort, dysuria. Still with poor appetite. not at bedside today. Review of Systems Review of Systems: Constitutional: +weakness, Denies fever, chills ENMT: Denies dizziness Resp: Denies cough, Denies shortness of breath CV: Denies JVD GI: poor appetite, no emesis : +hematuria, Denies suprapubic or flank pain, dysuria, urgency, frequency MS: Denies swelling, stiffness Integ: Denies rash, erythema Neuro: Denies falls, weakness Psych: Denies behavior change Endo: Denies polyphagia, polydipsia Heme: Denies easy bleeding Physical Exam Constitutional: + ill appearing and + cachectic; no acute distress Eyes: no nystagmus ENMT: Ears: no hearing impairment Neck: trachea midline Respiratory: no respiratory distress and no cough Cardiovascular: Vessels: no JVD Chest (Breasts): Chest: normal inspection of chest Gastrointestinal (Abdomen): Inspection/Auscultation: abdomen not distended and no abdominal edema Percussion/Palpation: abdomen soft; abdomen nontender Musculoskeletal: Head/Neck/Chest: normocephalic and head atraumatic Skin: no rashes, warm and dry Neurologic: awake; not confused and not obtunded Psychiatric: Orientation: alert and oriented x 3 Eye Contact: good eye contact Affect: no depressed affect Genitourinary: bermudez draining maroon urine Lymphatic: no lymphadenopathy and no lymphedema Results & Data Vital Signs (Past 12 Hours) Vital Signs Temp Pulse Resp BP Pulse Ox 12/21/18 07:45 36.8 C 80 16 106/62 94 PG Care Time/CCT Total # of Minutes Spent Total Time Spent with Patient: Total time spent is greater than 50% in coordination of care (as documented) at patient's floor/unit and/or counseling patient:
[2018-12-21] MEDS ORDERED: GLUCOSE 10 TABS/TUBE PO PRN (15:25)
[2018-12-21] MEDS ORDERED: DEXTROSE 50% 50 ML SYRINGE IV PRN ×2 (15:25→15:26)
[2018-12-21] MEDS ORDERED: GLUCAGON FOR INJ 1 MG VIAL SQ PRN (15:25)
[2018-12-21] MEDS ORDERED: GLUCOSE 40% GEL 15 GM TUBE PO PRN (15:25)
[2018-12-21] MEDS ORDERED: CARBOHYDRATES FOR HYPOGLYCEMIA PO PRN (15:25)
--- NOTE | 2018-12-21 15:28 | Radiation OncologyConsultation ---
Date of Consultation December 21, 2018 Assessment & Plan (1) Lymphoma: Assessment: Ms. Mccauley is a frail 78-year-old female who was recently found to have a large pelvic mass causing bilateral ureteral obstruction. Cystoscopy was performed. Tumor was removed covering the ureteral orifices and stents were able to be placed. Her renal status has improved. The tissue was consistent with a diffuse large B-cell lymphoma with Ki-67 proliferation index of a proximally 98%. CT scan of the chest has revealed a 5 cm left lower lobe mass without adenopathy appreciated. This could be consistent with a primary bronchogenic carcinoma but more likely related to her rapidly growing lymphoma. The patient is having evidence of gross hematuria however her hemoglobin has remained relatively stable over the past several days in the mid to low 8. Patient is experiencing moderate to at times severe pelvic pain and is on pain medication which has improved her pain level. Treatment Options: 1. Standard option for this disease would be systemic chemotherapy. Dr. Sharpe had recommended R-CVP. However the patient's overall condition has deteriorated and it does not appear to be likely that she would be a good candidate for aggressive systemic therapy at this time. 2. Palliative pelvic radiation would be a treatment option although the field would need to be fairly large and the patient's tolerance of this treatment is unknown. 3. Hospice. Recommendations: I have discussed the cystoscopy findings with Dr. Hamilton and the urologic status of the patient. I am in the process of speaking with Dr. Sharpe. If he feels that the patient's status would improve sufficiently to start systemic chemotherapy this would be my primary recommendation. However in the more likely event that the patient would not improve sufficiently without some form of treatment I would consider a course of radiation to the pelvis. The extent of the treatment would be to encompass all the pelvic disease but certainly would not involve the chest disease. The exact dose is utilized and duration delivered would be evaluated based on the patient's tolerance and response to treatment. Plan: 1. Discuss the case with Dr. Hamilton. 2. Discuss the case with Dr. Sharpe. 3. I will meet with the patient's and discussed the potential role of radiation. 4. If there is consensus agreement that this is the appropriate approach I will obtain a consent and schedule the patient for a CT simulation on Monday. Rationale/Explanation of Treatment: This patient has a extremely large pelvic mass that appears to be compressing the other pelvic organs and invading into the bladder. Cystoscopy showed disease covering the ureteral orifices that required removal prior to placement of stents. This tissue was evaluated and confirmed to be a large B-cell lymphoma with a Ki-67 proliferation index of 98%. Prior CT scan from October confirmed a large pelvic mass and on retrospect a left lower lobe mass. Both these lesions have increased on recent studies from this admission. Standard therapy is of course systemic chemotherapy with likely consolidative radiation if the patient is able to tolerate it. The patient has been seen by Dr. Sharpe. His plan was to proceed with R-CVP. However before the patient was able to start her condition worsened and she presented to the emergency department and subsequently admitted. She is now having increasing pain and persistent hematuria with what appears to be a stable hemoglobin in the mid to low eights. I will discuss the case with Dr. Sharpe. If he feels that her status is such that without changes that it is unlikely she would improve sufficiently to become a candidate for systemic chemotherapy then I would discuss the possibility of pelvic radiation to encompass the pelvic disease. This tumor is likely to be radio responsive and could improve her pain status and her bleeding. If the consensus is to proceed with a course of radiation I will review with the patient's and the patient the potential risks and side effects and obtaining a appropriate consent form. We would then plan on having her come down on Monday morning for a simulation with treatment to start as soon as possible after that. This chart was completed in part utilizing [employer] Voice Recognition software. Grammatical errors, random word insertions, pronoun errors and incomplete sentences are occasional consequence of this system due to software limitations, ambient noise and hardware issues. Any formal questions or con cerns about the content, text or information contained within the body of this dictation should be directly addressed to the provider for clarification. Yobani Martinez MD Department of Radiation Oncology [facility] [place] [facility] Present on Admission?: Yes History of Present Illness Reason for Consultation: Large pelvic mass biopsy proven to be large B-cell lymphoma eroding into the bladder causing gross hematuria. Requesting Physician: Dr. Hidalgo Attending Physician: Ranjan Hidalgo MD History of Present Illness Ms. Mccauley is a 78-year-old female who recently presented with a several month history of decreasing appetite and weight loss going back several months with decreasing energy. Most recently labs were drawn and were abnormal consistent with acute renal injury. 08/23/2018. Comprehensive metabolic profile showed normal electrolytes and calcium but a faint suspicious band on immunofixation of the serum and the lambda region was noted. Patient was initially sent to see Dr. Schneider to rule out underlying myeloma or MGUS. 09/03/2018. CT scan of the chest showed mild scarring and minimal bronchiectasis to lactic changes in the lower lobes and middle lobes with no suspicious masses or nodules. A moderate to large hiatal hernia was noted. 11/11/2018. Patient presents to the emergency department with complaint of abnormal laboratory studies. Creatinine was 1.8 and GFR was 28. Retrograde pyelogram was performed. This showed evidence of bilateral hydronephrosis with placement of bilateral ureteral stents. 11/11/2018. Patient seen by Dr. Hamilton in referral. He noted the abnormal creatinine and GFR and the findings on the CT of the pelvis. He recommended cystoscopy with placement of bilateral stents. The patient agreed to this procedure. Cystoscopy identified the left ureteral orifice with a large mass in the trigone of the bladder. This mass was fixed and palpable outside of the rectum vagina and bladder and appeared to be extending directly into the bladder. A stent was placed. The right ureteral orifice was search for and found to be surrounding by tumor. The tumor was resected and the orifice was identified and a stent was placed. Biopsies were taken and sent for pathologic evaluation. 11/11/2018. CT scan of the abdomen and pelvis without contrast was performed. This showed a large low and mid pelvic mass extending to the right as well as the left obturator foramen. The mass occupied the bulk of the mid to lower pelvic region and contains several calcifications. The mass is creating bilateral renal obstructive changes with bilateral hydroureteronephrosis. Differential consisted of a low pelvic neoplastic process or possible lymphoma. 11/12/2018. Tissue removed from the transurethral resection measuring in aggregate 3.4 x 3.0 x 1.0 cm was consistent with a diffuse large B-cell lymphoma with a Ki-67 proliferation index of approximately 98%. The FISH panel was negative for double or triple hit lymphoma. Case #: [id number]. 11/12/2018. Patient was admitted through the emergency department. Patient was stabilized the BUN on admission was 33 and after placement of the stent gradually decreased to 16. Creatinine was 2.94 and also gradually decreased to 0.71. Estimated EGFR was 14.7 and improved to 82.2. Patient was subsequently discharged with arrangements to be seen by oncology. 11/14/2018. MRI of the brain performed with and without contrast. There was no evidence of intracranial metastasis. No evidence of acute or subacute infarction. There was extensive foci of increased T2 signal within the white matter statistically on a small vessel ischemic basis. 12/07/2018. Patient seen by Dr. Sharpe for evaluation and discussion of treatment options. Patient had undergone an outpatient PET CT scan which can firmed a huge soft tissue mass filling the pelvis. He noted biopsy findings consistent with diffuse large B-cell lymphoma with markedly elevated Ki-67 proliferation index of 98%. He appreciated that the patient had poor performance status. Given the diagnosis he recommended treatment with R-CVP chemotherapy for 1-2 cycles to decrease the volume of the disease. Dependent on the response and overall status additional therapies would be evaluated. 12/17/2018. The patient was in the process of preparing for the initiation of systemic chemotherapy for her diffuse large B-cell lymphoma. She however presented to the emergency department with a complaint of increasing lower abdominal pain which began the night before. The patient rated the pain as a 7 of 10. The family described a fall after tripping without any head trauma. Patient's blood work showed an elevated BUN of 23 and creatinine of 1.21. Both these are higher than at the time of discharge following placement of stent. GFR was 43.1 also significantly lower than following discharge. Decision was made to admit the patient. 12/17/2018. CT scan of the abdomen and pelvis was performed. This showed distention of the urinary collecting system which had decreased from the prior scan following placement of the stents. There are underlying prominent cyst at the lower pole of the left kidney. The urinary bladder was completely decompressed with a Mcgraw catheter in place. The rectum was severely narrowed due to a large extraperitoneal pelvic mass with mild wall thickening of the sigmoid colon. Again noted was the extra pleural pelvic masses with surrounding soft tissue invasion resulting in obstructive uropathy however bilateral ureteral stents are noted. There was interval development of an enterocolitis likely infectious. A left infrahilar mass was noted in the left lower lobe also of concern for neoplasm possibly primary bronchogenic or related to biopsy- proven lymphoma. 12/17/2018. CT scan of the head without contrast showed no acute intracranial abnormality. CT scan of the chest showed no axillary, supraclavicular, mediastinal or hilar adenopathy. There was obstruction of the left lower lobe bronchi due to a central left infrahilar mass measuring 5.1 cm in diameter highly concerning for primary bronchogenic neoplasm. CT scan of the cervical spine was performed. This showed no acute cervical spine fracture or subluxation and no evidence of metastatic disease. Bilateral lower extremity venous Doppler study was performed. There was deep venous thrombus within the right common femoral, femoral, popliteal, posterior tibial and peroneal veins. The thrombus is nearly occlusive. There is superficial thrombus within the right greater saphenous vein. No thrombus within the left lower extremity. 12/18/2018. An IVC filter was placed. Hemoglobin level has remained fairly st able in the range of 8. Today's reading was 8.4 with hematocrit 26.5. BUN today was 20 with creatinine 0.91 and estimated GFR of 60.9. 12/21/2018. We are asked to see the patient in referral for evaluation and discussion of the potential role of radiation as treatment for her newly diagnosed large B-cell lymphoma of the pelvis. This chart was completed in part utilizing [employer] Voice Recognition software. Grammatical errors, random word insertions, pronoun errors and incomplete sentences are occasional consequence of this system due to software limitations, ambient noise and hardware issues. Any formal questions or concerns about the content, text or information contained within the body of this dictation should be directly addressed to the provider for clarification. Yobani Martinez MD Department of Radiation Oncology [facility] [place] [facility] Allergies Allergy/AdvReac Type Severity Reaction Status Date / Time acetaminophen [From Vicodin] Allergy Swelling Verified 12/17/18 16:00 of Lip/Tongue/Throat hydrocodone [From Vicodin] Allergy Swelling Verified 12/17/18 16:00 of Lip/Tongue/Throat Home Medications Home Medications Medication Instructions Recorded Confirmed Type metoprolol succinate 25 mg PO QAM 11/11/18 12/17/18 History allopurinol 300 mg PO DAILY 12/17/18 12/17/18 History lisinopril 40 mg PO DAILY 12/17/18 12/17/18 History ondansetron HCl 8 mg PO Q8H PRN 12/17/18 12/17/18 History prednisone See Rx Instructions .ROUTE .COMPLEX 12/17/18 12/17/18 History prochlorperazine maleate 10 mg PO Q6H PRN 12/17/18 12/17/18 History tramadol 25 mg PO Q6H PRN 12/17/18 12/17/18 History Patient History Medical History Lymphoma (Chronic) diffuse large B-cell lymphoma History of hysterectomy (Chronic) MGUS (monoclonal gammopathy of unknown significance) (Chronic) Hypertension (Chronic) Cervical stenosis of spinal canal (Chronic) Surgical History Status post cystoscopy with ureteral stent placement (Chronic) History of appendectomy (Chronic) Family History Sister Leukemia Mother Cancer Father Cancer Social History Preferred Language: Vietnamese Communication Ability: Effective 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 Beliefs That Will Affect Care: None marital status: Current Living Situation: Spouse Other Information That Helps Us Care for You: No Feels Safe at Home: Yes Safety Concerns: Feels Safe At This Time Smoking Status: Never smoker Do You Dip or Chew Tobacco: No ; Second Hand Exposure: Yes ; Tobacco Cessation Education Requested by Patient: No Hx Alcohol Use: No Hx Substance Use: No Review of Systems Review of Systems: All systems reviewed & are unremarkable except as noted in HPI & below Physical Exam Constitutional: + ill appearing and + cachectic Eyes: PERRL, conjunctivae normal, anicteric sclerae ENMT: external ear and nose normal, oropharynx normal Mouth: + dentures and + edentulous Neck: trachea midline, no thyromegaly Respiratory: normal respiratory effort, lungs clear to auscultation Cardiovascular: Rate/Rhythm: regular rate, regular rhythm and + tachycardic Chest (Breasts): Chest: normal inspection of chest Breast: normal inspection of breasts and normal inspection of axillae Gastrointestinal (Abdomen): Inspection/Auscultation: + abdomen distended Percussion/Palpation: + abdomen tender and abdomen soft There is a large pelvic mass that is palpable in both the right and left pelvis and abdomen. The mass is tender. Musculoskeletal: Head/Neck/Chest: normocephalic, head atraumatic and neck supple Skin: no rashes, warm and dry Neurologic: normal touch/pain/proprioception, CN's II-XI intact bilaterally and + confused Psychiatric: Orientation: alert, oriented to person and oriented to place Genitourinary: A Mcgraw catheter is in place with evidence of gross hematuria. Results Additional Studies FINAL DIAGNOSIS BLADDER, TRANSURETHRAL RESECTION: 1. DIFFUSE LARGE B CELL LYMPHOMA. 2. SEE MICROSCOPIC DESCRIPTION. /PM at 0818. Clinical History Severe bilateral hydronephrosis with obstruction, likely secondary to large irregular pelvic mass. Acute kidney injury. Procedure performed: Cystoscopy, bilateral ureteral stent insertion with bilateral retrograde pyelogram and bilateral dilation and transurethral resection of bladder tumor, large. Gross Description BLADDER TUMOR The specimen is received in a container labeled as bladder tumor with patient name Debra Mccauley I. The specimen consists of pink, red and zapata rubbery tissue and blood clot. In the aggregate this measures 3.4 x 3 x 1 cm. The specimen is submitted entirely in three cassettes. AH/pw Microscopic Description HISTOLOGY: The bladder is diffusely infiltrated by a proliferation of intermediate sized malignant lymphocytes with numerous mitotic figures and a low power starry juaquin appearance. IMMUNOHISTOCHEMISTRY/CISH: The malignant cells stain positive with CD20, PAX5, CD10, BCL6 and ALVARADO P1. Semiquantitative analysis: Ki-67 Proliferation index: ~98%. P53: <5%. BCL2: 70% cMYC: 35% The malignant cells stain negative with CD3, CD5, CD30, pankeratin, MUM1, BCL1/Cyclin-D1, LMO2, GCET1 and YASMIN-mayra. Summary of High-Grade/Large B-Cell Lymphoma FISH Panel: Results: Negative Interpretation: t(14;18): Not Detected BCL6 rearrangement: Not Detected MYC rearrangement: Not Detected MYC amplification: Not Detected Fluorescence in situ hybridization (FISH) analysis was performed using probes specific for rearrangements involving BCL6, MYC, and t(14;18), which are reported in high-grade/large B-cell lymphomas. All signals were within the normal reference range. This finding represents a NORMAL result indicating the absence of gene rearrangements involving BCL2, BCL6, MYC, and IGH. CONCLUSION: The overall findings are consistent with a diffuse large B cell lymphoma with a proliferation index of ~98%. Based on the Tally method (using 30% cut-offs), the lymphoma is classified as activated B cell type, however, the Garrison method would classify as a germinal center B immunophenotype. The FISH panel is negative for a double or triple hit lymphoma. 12/17/18 15:28 ECG [address] abd pelvis IV con only Stat CT abd pelvis IV con only CLINICAL HISTORY: 78 years-old Female presenting with fall hypotension urinating blood. TECHNIQUE: Multidetector CT of the abdomen and pelvis was performed after the administration of intravenous contrast. IV contrast: 93 mL of Optiray 320. One or more dose lowering techniques were used consistent with the principles of ALARA (as low as reasonably achievable), including automatic exposure control, mA or kV adjustment to individual patient size, and/or use of iterative reconstruction. COMPARISON: 11/11/2018. CT DOSE (mGy.cm): The estimated cumulative dose is 1468.83. 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 Anterior cervical fusion hardware. Image quality is degraded by positioning of the arms over the abdomen and motion artifact. This moderately limits diagnostic sensitivity the exam. Lung bases: Multichamber enlargement of the heart. No pericardial or pleural effusion. Left infrahilar mass adjacent to the moderate hiatal hernia. Liver: Normal morphology. No liver lesion. Patent hepatic vasculature. Biliary: No intrahepatic or extrahepatic biliary ductal dilatation. Normal gallbladder. Pancreas: Mild parenchymal atrophy. A portion of the pancreas may be contained within the moderate hiatal hernia. Spleen: Normal. Adrenal glands: Normal. Kidneys and ureters: Bilateral ureteral stents remain in place. Distention of the urinary collecting systems has slightly decreased in from prior as the stents were not previously present. Multifocal scarring and atrophy in the right kidney. Underlying prominent cyst at the lower pole of the left kidney. No nephrolithiasis. Bilateral urothelial thickening. No obstructing masses in the lower pelvis. Bladder: A Mcgraw catheter is in place. The urinary bladder is completely decompressed. Pelvic organs: Nonvisualization due to the large pelvic masses. Bowel: The rectum is severely narrowed due to the large extraperitoneal pelvic masses. There is mild wall thickening of the sigmoid colon new from prior exam. Fluid noted in the colon suggesting a diarrheal state. Wall thickening of the cecum also noted. There is wall thickening of the terminal ileum suggested. No bowel obstruction. Moderate anomaly sliding type hiatal hernia. Peritoneal cavity: Small free fluid in the superior pelvis. No free intraperitoneal gas. Diffuse mesenteric fat infiltration. Interval increase in size of the extraperitoneal pelvic masses with greater extension of soft tissue outside of the pelvis along the posterior wall of the right acetabulum and with greater surrounding mass effect and convexity of margins. Lymph nodes: The pelvic masses may represent génesis conglomerations. No discrete lymphadenopathy is evident. Vasculature: Transiting vasculature in the external iliac regions are grossly patent though stenosis or occlusion may be present and internal iliac regions. Aorta and IVC remain patent. Abdominal wall: Diffuse body wall edema. Musculoskeletal: Degenerative changes of the spine. No displaced fracture is evident allowing for the severity of motion artifact degradation. Osteopenia. IMPRESSION: Image quality is degraded by positioning of the arms over the abdomen and motion artifact. This moderately limits diagnostic sensitivity the exam. 1. No acute intra-abdominal injury. No gross evidence of a displaced fracture. 2. Interval worsening of extrapleural pelvic masses concerning for progression of disease, likely lymphoma. Greater surrounding soft tissue invasion. These masses results in obstructive uropathy, however, bilateral ureteral stents have been placed with decreased severity of hydronephrosis. 3. Interval development of an enterocolitis, likely infectious. 4. Left infrahilar mass in the left lower lobe concerning for neoplasm, either primary bronchogenic or related to lymphoma. CT cervical spine wo con Stat CT chest w con Stat CT head/brain wo con Stat 12/17/18 19:38 US venous doppler LE BI Urgent 12/18/18 09:56 CA echo transthoracic complete Routine 12/18/18 10:30 EV IVC filter placement Routine Time Spent Attending I spent 30 minutes with direct face to face interaction with the patient and family which included obtaining clinical information, performing a physical exam, recommending a plan of action and answering questions.. I spent an additional 20 minutes in discussion with referring physicians and review of all scans and preparation of this document.
--- NOTE | 2018-12-21 15:39 | Hospitalist Progress Note ---
Date of Service December 21, 2018 Assessment & Plan (1) DVT (deep venous thrombosis): Right lower extensive occlusive DVT In setting of metastatic B cell Lymphoma S/P IVC filter placement Not a candidate for anticoagulation due to gross hematuria /acute blood loss anemia Overall prognosis is Very poor (2) Hypotension: Possible due to sepsis /intravascular volume depletion BP improved with IV fluids Hold lisinopril, metoprolol until blood pressure tolerates Monitor BP Sepsis Complicated UTI B/L Obstructive Uropathy due pelvic mass-- large B cell lymphoma H/O bilateral ureteral stent, indwelling Mcgraw catheter Possible Bronchitis Blood Cx: No growth to date Urine culture: MRSA IV Zosyn, vancomycin transition to IV vancomycin>> transition to doxycycline Needs 2-week course of doxycycline Day # 2/12 Stool negative for C. difficile per PCR. Appreciate urology input Acute blood loss Anemia: Due to gross hematuria S/P hb drop noted form 11.1 (Possible hemoconcentration from dehydration - baseline hb ~8.5 ) Monitor H&H Transfuse PRBCs as needed (3) Diarrhea: Experiencing diarrhea for the past several days. CT of abdomen and pelvis demonstrates enterocolitis. Recently took ciprofloxacin for cystoscopy. However, stool C. difficile PCR negative. Stool culture:Negative Consider repeating C. difficile if diarrhea persist (4) Abnormal urinalysis: Complicated Urinary Tract Infection Has bilateral ureteral stents for bilateral hydronephrosis from pelvic mass. Urine Cx: MRSA Appreciate neurology input Management as above (5) Altered mental status: Metabolic encephalopathy--Resolved Likely secondary to infection Possible delirium Avoid anticholinergic medications and other medications with CUSTOMER CARE VOICE CONSULTANT side effects whenever possible. (6) Hypertension: BP improved with IV Fluids Resume home meds as able (7) Lymphoma: Recently found to have a large pelvic mass. Cystoscopy performed for bilateral ureteral stent placement because of bilateral hydronephrosis with acute kidney injury. Pelvic mass extended to the urinary bladder and biopsy was performed which demonstrated a diffuse large B-cell lymphoma. Seen in consultation by Dr. Sharpe. Chemotherapy not initiated yet Needs follow-up with oncology upon discharge Discussed with oncology on 12/21/18 Given gross hematuria--likely bleeding from pelvic mass into bladder Currently no plan to start chemotherapy Consulted radiation oncology for possible radiation (8) Abnormal CT scan, chest: CT of chest demonstrates a 5 cm left lower lobe mass. Mass may be secondary to lymphoma or, perhaps, another malignancy. Further evaluation/management per Hematology/Oncology. (9) Severe malnutrition: Cachectic. 20-30 lb wt loss. Severe malnutrition due to underlying malignancy. Consulted Literacy Coach. (10) DVT prophylaxis: No anticoagulants due to gross hematuria. s/p IVC filter placement (11) Discharge planning issues: To be determined. Family Medicine follow-up with Dr. Natacha King. Hematology/oncology follow-up with Dr. Sharpe. May need rehab placement (12) Gross hematuria: (13) Pelvic mass: (14) Malnutrition, calorie: (15) Lung mass: Subjective Patient is seen and examined at bedside Still has significant generalized weakness Noted gross hematuria today Discussed with oncology, urology today Hemoglobin stable Consulted radiation oncology for possible radiation Rx control hematuria Very poor oral intake Less cough today Denies abdominal pain today Right leg pain improved Denies any chest pain, shortness of breath, dizziness, nausea, dysuria Poor prognosis Review of Systems Review of Systems: All systems reviewed & are unremarkable except as noted in HPI & below Physical Exam Physical Exam: Physical Exam: Vitals signs as noted above General Appearance:Thin, frail, ill appearing no apparent distress Head: normocephalic, Atraumatic Eyes: normal inspection, EOMI Neck: supple, Trachea midline Respiratory/Chest: Normal breath sounds, CTA Cardiovascular: S1, S2, No murmur Abdomen/GI:Soft, + tender, Bowel sounds present Extremities/Musculoskelatal:normal inspection, no edema Neurologic/Psych:AAOX3, grossly no focal neurological deficits Skin: normal color, warm Results & Data Vital Signs (Past 12 Hours) Vital Signs Temp Pulse Resp BP Pulse Ox 12/21/18 07:45 36.8 C 80 16 106/62 94 Laboratory Results Short CBC 12/21/18 Range/Units 06:33 Hgb 8.4 L (12.0-16.0) g/dL Hct 26.5 L (37-47) % BMP 12/21/18 06:33 Sodium 141 Potassium 4.0 Chloride 111 H Carbon Dioxide 24 BUN 20 H Creatinine 0.91 Glucose 65 L Calcium 8.8 (1) Hypotension Hypotension type: unspecified hypotension type Qualified Code(s): I95.9 - Hypotension, unspecified (2) Diarrhea Diarrhea type: unspecified type Qualified Code(s): R19.7 - Diarrhea, unspecified
--- NOTE | 2018-12-21 16:08 | Radiation OncologyConsultation ---
Date of Consultation December 21, 2018 Assessment & Plan (1) Lymphoma: Assessment: Ms. Mccauley is a frail 78-year-old female who was recently found to have a large pelvic mass causing bilateral ureteral obstruction. Cystoscopy was performed. Tumor was removed covering the ureteral orifices and stents were able to be placed. Her renal status has improved. The tissue was consistent with a diffuse large B-cell lymphoma with Ki-67 proliferation index of a proximally 98%. CT scan of the chest has revealed a 5 cm left lower lobe mass without adenopathy appreciated. This could be consistent with a primary bronchogenic carcinoma but more likely related to her rapidly growing lymphoma. The patient is having evidence of gross hematuria however her hemoglobin has remained relatively stable over the past several days in the mid to low 8. Patient is experiencing moderate to at times severe pelvic pain and is on pain medication which has improved her pain level. Treatment Options: 1. Standard option for this disease would be systemic chemotherapy. Dr. Sharpe had recommended R-CVP. However the patient's overall condition has deteriorated and it does not appear to be likely that she would be a good candidate for aggressive systemic therapy at this time. 2. Palliative pelvic radiation would be a treatment option although the field would need to be fairly large and the patient's tolerance of this treatment is unknown. 3. Hospice. Recommendations: I have discussed the cystoscopy findings with Dr. Hamilton and the urologic status of the patient. I am in the process of speaking with Dr. Sharpe. If he feels that the patient's status would improve sufficiently to start systemic chemotherapy this would be my primary recommendation. However in the more likely event that the patient would not improve sufficiently without some form of treatment I would consider a course of radiation to the pelvis. The extent of the treatment would be to encompass all the pelvic disease but certainly would not involve the chest disease. The exact dose is utilized and duration delivered would be evaluated based on the patient's tolerance and response to treatment. Plan: 1. Discuss the case with Dr. Hamilton. 2. Discuss the case with Dr. Sharpe. 3. I will meet with the patient's and discussed the potential role of radiation. 4. If there is consensus agreement that this is the appropriate approach I will obtain a consent and schedule the patient for a CT simulation on Monday. Rationale/Explanation of Treatment: This patient has a extremely large pelvic mass that appears to be compressing the other pelvic organs and invading into the bladder. Cystoscopy showed disease covering the ureteral orifices that required removal prior to placement of stents. This tissue was evaluated and confirmed to be a large B-cell lymphoma with a Ki-67 proliferation index of 98%. Prior CT scan from October confirmed a large pelvic mass and on retrospect a left lower lobe mass. Both these lesions have increased on recent studies from this admission. Standard therapy is of course systemic chemotherapy with likely consolidative radiation if the patient is able to tolerate it. The patient has been seen by Dr. Sharpe. His plan was to proceed with R-CVP. However before the patient was able to start her condition worsened and she presented to the emergency department and subsequently admitted. She is now having increasing pain and persistent hematuria with what appears to be a stable hemoglobin in the mid to low eights. I will discuss the case with Dr. Sharpe. If he feels that her status is such that without changes that it is unlikely she would improve sufficiently to become a candidate for systemic chemotherapy then I would discuss the possibility of pelvic radiation to encompass the pelvic disease. This tumor is likely to be radio responsive and could improve her pain status and her bleeding. If the consensus is to proceed with a course of radiation I will review with the patient's and the patient the potential risks and side effects and obtaining a appropriate consent form. We would then plan on having her come down on Monday morning for a simulation with treatment to start as soon as possible after that. This chart was completed in part utilizing [employer] Voice Recognition software. Grammatical errors, random word insertions, pronoun errors and incomplete sentences are occasional consequence of this system due to software limitations, ambient noise and hardware issues. Any formal questions or con cerns about the content, text or information contained within the body of this dictation should be directly addressed to the provider for clarification. Yobani Martinez MD Department of Radiation Oncology [facility] and [facility] History of Present Illness Attending Physician: Ranjan Hidalgo MD Allergies Allergy/AdvReac Type Severity Reaction Status Date / Time acetaminophen [From Vicodin] Allergy Swelling Verified 12/17/18 16:00 of Lip/Tongue/Throat hydrocodone [From Vicodin] Allergy Swelling Verified 12/17/18 16:00 of Lip/Tongue/Throat Home Medications Home Medications Medication Instructions Recorded Confirmed Type metoprolol succinate 25 mg PO QAM 11/11/18 12/17/18 History allopurinol 300 mg PO DAILY 12/17/18 12/17/18 History lisinopril 40 mg PO DAILY 12/17/18 12/17/18 History ondansetron HCl 8 mg PO Q8H PRN 12/17/18 12/17/18 History prednisone See Rx Instructions .ROUTE .COMPLEX 12/17/18 12/17/18 History prochlorperazine maleate 10 mg PO Q6H PRN 12/17/18 12/17/18 History tramadol 25 mg PO Q6H PRN 12/17/18 12/17/18 History Patient History Medical History Lymphoma (Chronic) diffuse large B-cell lymphoma History of hysterectomy (Chronic) MGUS (monoclonal gammopathy of unknown significance) (Chronic) Hypertension (Chronic) Cervical stenosis of spinal canal (Chronic) Surgical History Status post cystoscopy with ureteral stent placement (Chronic) History of appendectomy (Chronic) Family History Sister Leukemia Mother Cancer Father Cancer Social History Preferred Language: Algerian Communication Ability: Effective Paper Winder Required: No Beliefs That Will Affect Care: None marital status: Current Living Situation: Spouse Other Information That Helps Us Care for You: No Feels Safe at Home: Yes Safety Concerns: Feels Safe At This Time Smoking Status: Never smoker Do You Dip or Chew Tobacco: No ; Second Hand Exposure: Yes ; Tobacco Cessation Education Requested by Patient: No Hx Alcohol Use: No Hx Substance Use: No Results Additional Studies 12/17/18 15:28 ECG [address] abd pelvis IV con only Stat CT cervical spine wo con Stat CT chest w con Stat CT head/brain wo con Stat 12/17/18 19:38 US venous doppler LE BI Urgent 12/18/18 09:56 CA echo transthoracic complete Routine 12/18/18 10:30 EV IVC filter placement Routine
[2018-12-22 06:53] LABS: Hematocrit (blood only) 23.4 % (37-47); Hemoglobin 7.4 g/dL (12.0-16.0)
[2018-12-22 07:36] LABS: BUN Creatinine Ratio 20.5 (10-20); Calcium 9.1 mg/dl (8.5-10.1); Creatinine Clr Calc Pharmacy 33.7 ml/min; Est GFR (African American) 54.3; Est GFR (Non-African American) 46.8
[2018-12-22] MEDS: DOXYCYCLINE HYCLATE 100 MG CAP PO SCH ×2 (09:02→20:36)
[2018-12-22] MEDS: allopurinoL 300 MG TAB PO SCH (09:02)
[2018-12-22] MEDS: LACTOBACILLUS ACIDOPHILUS (FLORANEX) TAB PO SCH ×4 (09:02→20:36)
[2018-12-22] MEDS ORDERED: SODIUM CHLORIDE 0.9% 250 ML IV PRN (09:28)
--- NOTE | 2018-12-22 10:30 | Urology Progress Note ---
Date of Service December 22, 2018 Assessment & Plan (1) Gross hematuria: 78yo F with diffuse large B-Cell lymphoma, hypotension, bilateral ureteral stent and indwelling bermudez catheter with gross hematuria. Patient currently deconditioned, had poor oral intake, and is now experiencing some episodes of confusion and hallucinations. Discussed this at length with patient and family. Discussed ICU/inpatient delirium at length with patient and family. Right now patient is alert and oriented and well aware of current events and environment. Discussed options to help her acclimatized to the inpatient environment. Will recommend decreasing interruptions especially during the night. Encourage better sleeping patterns. Normalize diet as much as possible. And avoid any medications that might be contributing to this. I spoke at length with radiation oncology yesterday about options. Discussed palliative radiation to control recurring bleeding. Patient had resection of base of bladder due to complete obstruction of the ureters distally from the large pelvic mass. The ureters were able to be accessed and stents are in place. Her creatinine and function have drastically improved with stents in place. Likely bleeding from raw surface which would be into the large pelvic tumor. Stents will likely need to be maintained. May consider changing to nephrostomy tubes if these become more of an issue or if they start to fail. Also could be exchanged if for some reason started fail. Patient is largely incontinent just prior to finding this large pelvic mass. At this point unsure if catheter is causing more problems than good. May need to consider removal. Would recommend removing first thing in the morning if this is going to be attempted. And then monitoring through the rest of the day. Currently does not appear to be actively bleeding. Urine is very dark purple/red likely old clot material breaking down. Patient is to get transfusion today. After hemoglobin has dropped. Prior to this has been stable around 8.5 Ideally we will try to optimize patient to prepare for chemotherapy. Best scenario would be getting her to primary systemic treatment to manage this diffuse B cell lymphoma. Other considerations would be palliative approaches. In either scenario radiation should be a good option to better control bleeding and other symptoms. Discussed at length with patient and family who are all in agreements. Recommended increasing protein intake, continuous physical therapy especially for strengthening and transitioning, and continue to monitor output. Subjective Patient and family seen. Patient has slight increased activity today. However has had significant weakness and deconditioning since last seen in office. Patient continues to have dark old appearing blood in urine. Is tolerating catheter. Per family she is having episodes of delirium. Sounds to be likely a ICU like delirium. With confusion intermittently. Has increased oral and protein intake. Is working with physical therapy. Has discussed options with radiation for management of bleeding. Otherwise has been feeling somewhat stronger. And is working on improving to try to be able to get home sooner rather than later. Review of Systems Review of Systems: Constitutional: +weakness, Denies fever, chills ENMT: Denies dizziness Resp: Denies cough, Denies shortness of breath CV: Denies JVD GI: poor appetite, no emesis : +hematuria, Denies suprapubic or flank pain, dysuria, urgency, frequency MS: Denies swelling, stiffness Integ: Denies rash, erythema Neuro: Denies falls, weakness Psych: Denies behavior change Endo: Denies polyphagia, polydipsia Heme: Denies easy bleeding Physical Exam Constitutional: + ill appearing and + cachectic; no acute distress Eyes: no nystagmus ENMT: Ears: no hearing impairment Neck: trachea midline Respiratory: no respiratory distress and no cough Cardiovascular: Vessels: no JVD Chest (Breasts): Chest: normal inspection of chest Gastrointestinal (Abdomen): Inspection/Auscultation: abdomen not distended and no abdominal edema Percussion/Palpation: abdomen soft; abdomen nontender Musculoskeletal: Head/Neck/Chest: normocephalic and head atraumatic Skin: no rashes, warm and dry Neurologic: awake; not confused and not obtunded Psychiatric: Orientation: alert and oriented x 3 Eye Contact: good eye contact and + fair eye contact Affect: no depressed affect Lymphatic: Bermudez with dark red/purple urine no major clots Results & Data Vital Signs (Past 12 Hours) Vital Signs Temp Pulse Resp BP Pulse Ox 12/22/18 07:44 36.8 C 86 16 109/71 90 12/21/18 23:34 36.6 C 95 H 16 100/66 92 PG Care Time/CCT Total # of Minutes Spent Total Time Spent with Patient: Total time spent is greater than 50% in coordination of care (as documented) at patient's floor/unit and/or counseling patient:
[2018-12-22 16:22] LABS: Hematocrit (blood only) 30.6 % (37-47); Hemoglobin 9.6 g/dL (12.0-16.0)
--- NOTE | 2018-12-22 16:31 | Hospitalist Progress Note ---
Date of Service December 22, 2018 Assessment & Plan (1) DVT (deep venous thrombosis): Right lower extensive occlusive DVT In setting of metastatic B cell Lymphoma S/P IVC filter placement Not a candidate for anticoagulation due to gross hematuria /acute blood loss anemia Overall prognosis is Very poor (2) Hypotension: Possible due to sepsis /intravascular volume depletion BP improved with IV fluids Hold lisinopril, metoprolol until blood pressure tolerates Monitor BP Sepsis Complicated UTI B/L Obstructive Uropathy due pelvic mass-- large B cell lymphoma H/O bilateral ureteral stent, indwelling Mcgraw catheter Possible Bronchitis Blood Cx: No growth to date Urine culture: MRSA IV Zosyn, vancomycin transition to IV vancomycin>> transition to doxycycline Needs 2-week course of doxycycline Day # 3/12 (Discussed with ID) Stool negative for C. difficile per PCR. Appreciate urology input Acute blood loss Anemia: Due to gross hematuria S/P hb drop noted form 11.1 (Possible hemoconcentration from dehydration - baseline hb ~8.5 ) Monitor H&H Transfuse PRBCs as needed Plan for palliative radiation therapy (3) Diarrhea: Experiencing diarrhea for the past several days. CT of abdomen and pelvis demonstrates enterocolitis. Recently took ciprofloxacin for cystoscopy. However, stool C. difficile PCR negative. Stool culture:Negative Consider repeating C. difficile if diarrhea persist (4) Abnormal urinalysis: Complicated Urinary Tract Infection Has bilateral ureteral stents for bilateral hydronephrosis from pelvic mass. Urine Cx: MRSA Appreciate neurology input Management as above (5) Altered mental status: Metabolic encephalopathy--Resolved Likely secondary to infection Possible delirium Avoid anticholinergic medications and other medications with [employer]400 PROGRAMMER ANALYST side effects whenever possible. (6) Hypertension: BP improved with IV Fluids Resume home meds as able (7) Lymphoma: Recently found to have a large pelvic mass. Cystoscopy performed for bilateral ureteral stent placement because of bilateral hydronephrosis with acute kidney injury. Pelvic mass extended to the urinary bladder and biopsy was performed which demonstrated a diffuse large B-cell lymphoma. Seen in consultation by Dr. Sharpe. Chemotherapy not initiated yet Needs follow-up with oncology upon discharge Discussed with oncology on 12/21/18 Given gross hematuria--likely bleeding from pelvic mass into bladder Currently no plan to start chemotherapy when more stable Consulted radiation oncology for Palliative Radiation therapy (8) Abnormal CT scan, chest: CT of chest demonstrates a 5 cm left lower lobe mass. Mass may be secondary to lymphoma or, perhaps, another malignancy. Further evaluation/management per Hematology/Oncology. (9) Severe malnutrition: Cachectic. 20-30 lb wt loss. Severe malnutrition due to underlying malignancy. Consulted Field Manager. (10) DVT prophylaxis: No anticoagulants due to gross hematuria. s/p IVC filter placement (11) Discharge planning issues: To be determined. Family Medicine follow-up with Dr. Natacha King. Hematology/oncology follow-up with Dr. Sharpe. May need rehab placement (12) Gross hematuria: (13) Pelvic mass: (14) Malnutrition, calorie: (15) Lung mass: Subjective Patient is seen and examined at bedside Dark-colored hematuria noted in urinary catheter Has significant weakness Plan for palliative radiation therapy for continued hematuria We will give 1 unit PRBC today Very deconditioned Poor oral intake Denies any chest pain, shortness of breath, dizziness, nausea, dysuria, abd pain Poor prognosis Physical Exam Physical Exam: Physical Exam: Vitals signs as noted above General Appearance:Thin, frail, ill appearing no apparent distress Head: normocephalic, Atraumatic Eyes: normal inspection, EOMI Neck: supple, Trachea midline Respiratory/Chest: Normal breath sounds, CTA Cardiovascular: S1, S2, No murmur Abdomen/GI:Soft, + tender, Bowel sounds present Extremities/Musculoskelatal:normal inspection, no edema Neurologic/Psych:AAOX3, grossly no focal neurological deficits Skin: normal color, warm Results & Data Vital Signs (Past 12 Hours) Vital Signs Temp Pulse Pulse Resp BP BP Pulse Ox 12/22/18 15:29 36.8 C 82 17 120/75 93 12/22/18 13:42 36.4 C L 81 16 113/73 95 12/22/18 12:42 36.3 C L 81 16 114/69 93 12/22/18 12:12 36.4 C L 79 16 99/64 L 94 12/22/18 11:57 36.4 C L 84 18 108/69 95 12/22/18 11:40 36.3 C L 86 18 111/74 12/22/18 07:44 36.8 C 86 16 109/71 90 Laboratory Results Short CBC 12/22/18 12/22/18 Range/Units 06:15 16:03 Hgb 7.4 L 9.6 L (12.0-16.0) g/dL Hct 23.4 L 30.6 L (37-47) % BMP 12/22/18 06:15 Sodium 139 Potassium 4.0 Chloride 110 H Carbon Dioxide 22 BUN 23 H Creatinine 1.13 Glucose 62 L Calcium 9.1 (1) Hypotension Hypotension type: unspecified hypotension type Qualified Code(s): I95.9 - Hypotension, unspecified (2) Diarrhea Diarrhea type: unspecified type Qualified Code(s): R19.7 - Diarrhea, unspecified
[2018-12-22] MEDS ORDERED: VANCOMYCIN TROUGH ONE (23:30)
[2018-12-23 06:08] LABS: Hematocrit (blood only) 28.4 % (37-47); Hemoglobin 9.2 g/dL (12.0-16.0)
[2018-12-23] MEDS ORDERED: SODIUM CHLORIDE 0.9% 1000ML 1,000 ML IV ONE (06:09)
[2018-12-23 06:40] LABS: Creatinine Clr Calc Pharmacy 37.7 ml/min; Est GFR (African American) 62.2; Est GFR (Non-African American) 53.7
[2018-12-23] MEDS: allopurinoL 300 MG TAB PO SCH (08:50)
[2018-12-23] MEDS: DOXYCYCLINE HYCLATE 100 MG CAP PO SCH ×2 (08:50→20:53)
[2018-12-23] MEDS: LACTOBACILLUS ACIDOPHILUS (FLORANEX) TAB PO SCH ×4 (08:50→20:53)
[2018-12-23] MEDS: ACETAMINOPHEN 325 MG TAB PO PRN (10:54)
--- NOTE | 2018-12-23 16:42 | Hospitalist Progress Note ---
Date of Service December 23, 2018 Assessment & Plan (1) DVT (deep venous thrombosis): Right lower extensive occlusive DVT In setting of metastatic B cell Lymphoma S/P IVC filter placement Not a candidate for anticoagulation due to gross hematuria /acute blood loss anemia Overall prognosis is Very poor (2) Hypotension: Possible due to sepsis /intravascular volume depletion BP improved with IV fluids Hold lisinopril, metoprolol as BP relatively low Monitor BP Sepsis Complicated UTI B/L Obstructive Uropathy due pelvic mass-- large B cell lymphoma H/O bilateral ureteral stent, indwelling Mcgraw catheter Possible Bronchitis Blood Cx: No growth to date Urine culture: MRSA IV Zosyn, vancomycin transition to IV vancomycin>> transition to doxycycline Needs 2-week course of doxycycline Day # 4/12 (Discussed with ID) Stool negative for C. difficile per PCR. Appreciate urology input Acute blood loss Anemia: Due to gross hematuria S/P hb drop noted form 11.1 (Possible hemoconcentration from dehydration - baseline hb ~8.5 ) Monitor H&H Transfuse PRBCs as needed Hb:9.2 Planned for palliative radiation therapy tomorrow (3) Diarrhea: Experiencing diarrhea for the past several days. CT of abdomen and pelvis demonstrates enterocolitis. Recently took ciprofloxacin for cystoscopy. However, stool C. difficile PCR negative. Stool culture:Negative Consider repeating C. difficile if diarrhea persist (4) Abnormal urinalysis: Complicated Urinary Tract Infection Has bilateral ureteral stents for bilateral hydronephrosis from pelvic mass. Urine Cx: MRSA Appreciate neurology input Management as above (5) Altered mental status: Metabolic encephalopathy--Resolved Likely secondary to infection Possible delirium Avoid anticholinergic medications and other medications with AIRPLANE TESTER side effects whenever possible. (6) Hypertension: BP relatively low Resume home meds as able (7) Lymphoma: Recently found to have a large pelvic mass. Cystoscopy performed for bilateral ureteral stent placement because of bilateral hydronephrosis with acute kidney injury. Pelvic mass extended to the urinary bladder and biopsy was performed which demonstrated a diffuse large B-cell lymphoma. Seen in consultation by Dr. Sharpe. Chemotherapy not initiated yet Needs follow-up with oncology upon discharge Discussed with oncology on 12/21/18 Given gross hematuria--likely bleeding from pelvic mass into bladder Currently no plan to start chemotherapy Consulted radiation oncology for Palliative Radiation therapy Planned for radiation therapy tmw (8) Abnormal CT scan, chest: CT of chest demonstrates a 5 cm left lower lobe mass. Mass may be secondary to lymphoma or, perhaps, another malignancy. Further evaluation/management per Hematology/Oncology. (9) Severe malnutrition: Cachectic. 20-30 lb wt loss. Severe malnutrition due to underlying malignancy. Consulted Pleater. (10) DVT prophylaxis: No anticoagulants due to gross hematuria. s/p IVC filter placement (11) Discharge planning issues: To be determined. Family Medicine follow-up with Dr. Natacha King. Hematology/oncology follow-up with Dr. Sharpe. May need rehab placement (12) Gross hematuria: (13) Pelvic mass: (14) Malnutrition, calorie: (15) Lung mass: Subjective Patient is seen and examined at bedside Continues to have Dark-colored hematuria Complains of Right leg pain today Feels very weak and tired Appetite continues to be poor Plan for palliative radiation therapy for continued hematuria tomorrow Discussed with family in detail Denies any chest pain, shortness of breath, dizziness, nausea, dysuria, abd pain Prognosis remain poor Review of Systems Review of Systems: All systems reviewed & are unremarkable except as noted in HPI & below Physical Exam Physical Exam: Physical Exam: Vitals signs as noted above General Appearance:Thin, frail, ill appearing no apparent distress Head: normocephalic, Atraumatic Eyes: normal inspection, EOMI Neck: supple, Trachea midline Respiratory/Chest: Normal breath sounds, CTA Cardiovascular: S1, S2, No murmur Abdomen/GI:Soft, + tender, Bowel sounds present Extremities/Musculoskelatal:normal inspection, no edema Neurologic/Psych:AAOX3, grossly no focal neurological deficits Skin: normal color, warm Results & Data Vital Signs (Past 12 Hours) Vital Signs Temp Pulse Resp BP Pulse Ox 12/23/18 15:06 36.5 C 90 16 105/67 92 12/23/18 07:41 36.4 C L 86 16 114/71 93 Laboratory Results Short CBC 12/23/18 Range/Units 05:47 Hgb 9.2 L (12.0-16.0) g/dL Hct 28.4 L (37-47) % BMP 12/23/18 05:47 Creatinine 1.01 (1) Hypotension Hypotension type: unspecified hypotension type Qualified Code(s): I95.9 - Hypotension, unspecified (2) Diarrhea Diarrhea type: unspecified type Qualified Code(s): R19.7 - Diarrhea, unspecified
[2018-12-24 06:38] LABS: Hematocrit (blood only) 26.2 % (37-47); Hemoglobin 8.6 g/dL (12.0-16.0)
[2018-12-24] MEDS: LACTOBACILLUS ACIDOPHILUS (FLORANEX) TAB PO SCH ×4 (08:21→21:21)
[2018-12-24] MEDS: DOXYCYCLINE HYCLATE 100 MG CAP PO SCH ×2 (08:22→21:21)
[2018-12-24] MEDS: allopurinoL 300 MG TAB PO SCH (08:22)
--- NOTE | 2018-12-24 11:20 | Urology Progress Note ---
Date of Service December 24, 2018 Assessment & Plan (1) Gross hematuria: 78yo F with diffuse large B-Cell lymphoma, hypotension, bilateral ureteral stent and indwelling Bermudez catheter with gross hematuria. Please reference Dr. Hamilton' note for recommendations. Pending palliative radiation treatment today. Recommend gentle hand irrigation of Bermudez PRN. Will continue to follow. Subjective 78yo F with diffuse large B-Cell lymphoma, hypotension, bilateral ureteral stent and indwelling bermudez catheter with gross hematuria. Please reference Dr. Hamilton' note for recommendations. Patient reports continued fatigue this morning. Is resting comfortably. Alert, appropriate affect. Family at bedside. Review of Systems Review of Systems: Per HPI. Physical Exam Physical Exam: NAD. +ill appearing +fatigue Resp effort normal. No JVD. : Bermudez patent, dark stevens hematuria is persisting. Alert, appropriate affect. Results & Data Vital Signs (Past 12 Hours) Vital Signs Temp Pulse Resp BP Pulse Ox 12/24/18 07:36 37.1 C 89 18 130/74 92 PG Care Time/CCT Total # of Minutes Spent Total Time Spent with Patient: Total time spent is greater than 50% in coordination of care (as documented) at patient's floor/unit and/or counseling patient:
--- NOTE | 2018-12-24 15:32 | Palliative Care Consultation ---
Date of Consultation December 24, 2018 Assessment & Plan (1) Goals of care, counseling/discussion: -78 year old female patient with PMH recently diagnosed large b-cell lymphoma with large pelvic mass, bilateral ureteral stents 2/2 obstruction, MGUS, htn, and others, presented to the hospital with diarrhea, abdominal pain, and weakness. Patient was recently admitted to [facility] on 11/11/2018 with acute kidney injury. Found to have bilateral hydronephrosis secondary to large pelvic mass. Cystoscopy with bilateral ureteral stent placement performed by Dr. Hamilton. Biopsy from cystoscopy demonstrated a diffuse large B-cell lymphoma. Patient was discharged to [facility] for skilled care and then discharged home after about 1 week. Seen in clinic by Dr. Sharpe for Hematology/Oncology consultation. Arrangements were being made for chemotherapy which was to be initiated last week, but then patient became increasingly weak and with the above complaints. She also fell the morning she came to the hospital. Since arriving to hospital, patient met with radiation oncology who is going to undergo palliative radiation to this mass to hopefully control bleeding. Her hgb remains low, but stable between 7-8. Unfortunately, patient's overall condition has deteriorated since admission with increased weakness, altered mental status, poor nutritional intake. Albumin 1.7, continued hematuria. Prognosis is poor. We are treating for infection and procalcitonin is improved, but overall condition continues to deteriorate. Currently patient is too weak to receive any sort of chemo and rehab potential is poor at this point. Palliative care is consulted to discuss code status and goals of care. -Met with patient in room 359. She is awake, somewhat drowsy/tired. Oriented to person, but could not tell me where she was, or the year. Said it was December 25 and did mental cancer a couple times, but could not elaborate on anything. -Patient does state that she has abdominal pain at times, c/o weakness. Otherwise, no complaints. -Called patient's , Isaiah. He states that patient has been confused since being in the hospital. He is hoping the radiation will "help her." Difficult to assess over the phone what his understanding of patient's condition is. We will meet in patient's room tomorrow morning around 1000. -Given patient's low albumin, continued decline/deterioration despite treatment with abx and supportive care, metastatic disease and other comorbidities, prognosis is quite poor. Per hospitalist physician, she has significantly worsened in the last week. Will discuss this with patient's family tomorrow and discuss goals of care. (2) Gross hematuria: (3) Altered mental status: (4) Severe malnutrition: (5) Lung mass: (6) Malnutrition, calorie: (7) Lymphoma: History of Present Illness Attending Physician: Ranjan Hidalgo MD History of Present Illness This 78 year old female patient with PMH recently diagnosed large b-cell lymphoma with large pelvic mass, bilateral ureteral stents 2/2 obstruction, MGUS, htn, and others, presented to the hospital with diarrhea, abdominal pain, and weakness. Patient was recently admitted to [facility] on 11/11/2018 with acute kidney injury. Found to have bilateral hydronephrosis secondary to large pelvic mass. Cystoscopy with bilateral ureteral stent placement performed by Dr. Hamilton. Biopsy from cystoscopy demonstrated a diffuse large B-cell lymphoma. Patient was discharged to [facility] for skilled care and then discharged home after about 1 week. Seen in clinic by Dr. Sharpe for Hematology/Oncology consultation. Arrangements were being made for chemotherapy which was to be initiated last week, but then patient became increasingly weak and with the above complaints. She also fell the morning she came to the hospital. Since arriving to hospital, patient met with radiation oncology who is going to undergo palliative radiation to this mass to hopefully control bleeding. Her hgb remains low, but stable between 7-8. Unfortunately, patient's overall condition has deteriorated since admission with increased weakness, altered mental status, poor nutritional intake. Albumin 1.7, continued hematuria. Prognosis is poor. We are treating for infection and procalcitonin is improved, but overall condition continues to deteriorate. Currently patient is too weak to receive any sort of chemo and rehab potential is poor at this point. Palliative care is consulted to discuss code status and goals of care. Thank you kindly for this consult. Palliative care team will follow as needed. Allergies Allergy/AdvReac Type Severity Reaction Status Date / Time acetaminophen [From Vicodin] Allergy Swelling Verified 12/17/18 16:00 of Lip/Tongue/Throat hydrocodone [From Vicodin] Allergy Swelling Verified 12/17/18 16:00 of Lip/Tongue/Throat Home Medications Home Medications Medication Instructions Recorded Confirmed Type metoprolol succinate 25 mg PO QAM 11/11/18 12/17/18 History allopurinol 300 mg PO DAILY 12/17/18 12/17/18 History lisinopril 40 mg PO DAILY 12/17/18 12/17/18 History ondansetron HCl 8 mg PO Q8H PRN 12/17/18 12/17/18 History prednisone See Rx Instructions .ROUTE .COMPLEX 12/17/18 12/17/18 History prochlorperazine maleate 10 mg PO Q6H PRN 12/17/18 12/17/18 History tramadol 25 mg PO Q6H PRN 12/17/18 12/17/18 History Patient History Medical History Lymphoma (Chronic) diffuse large B-cell lymphoma History of hysterectomy (Chronic) MGUS (monoclonal gammopathy of unknown significance) (Chronic) Hypertension (Chronic) Cervical stenosis of spinal canal (Chronic) Surgical History Status post cystoscopy with ureteral stent placement (Chronic) History of appendectomy (Chronic) Family History Sister Leukemia Mother Cancer Father Cancer Social History Preferred Language: Samoan Communication Ability: Effective Parts Classifier Required: No Beliefs That Will Affect Care: None marital status: Current Living Situation: Spouse Other Information That Helps Us Care for You: No Feels Safe at Home: Yes Safety Concerns: Feels Safe At This Time Smoking Status: Never smoker Do You Dip or Chew Tobacco: No ; Second Hand Expo sure: Yes ; Tobacco Cessation Education Requested by Patient: No Hx Alcohol Use: No Hx Substance Use: No Review of Systems Review of Systems: Const: + weakness Resp: No SOB, no cough Cardio: No chest pain, + BLE edema GI: + abdominal pain intermittently MS: No musculoskeletal pain Neuro: + confusion (reported by staff and ) Physical Exam Constitutional: + ill appearing and + cachectic ENMT: external ear and nose normal, oropharynx normal Neck: normal visual inspection Respiratory: normal respiratory effort; no labored breathing Cardiovascular: Rate/Rhythm: regular rate and regular rhythm Extremities: + edema (+2-3 BLE edema) Gastrointestinal (Abdomen): Inspection/Auscultation: normal bowel sounds Percussion/Palpation: + abdomen tender; + abdomen not soft (firm) Neurologic: moves all extremities and awake Psychiatric: Orientation: oriented to person; + not oriented to place and + not oriented to time Insight: + poor insight Results & Data Vital Signs (Past 12 Hours) Vital Signs Temp Pulse Resp BP Pulse Ox 12/24/18 15:17 37.1 C 97 H 16 127/80 91 12/24/18 11:41 92 12/24/18 07:36 37.1 C 89 18 130/74 92 Time Spent Midlevel 50 minutes with >50% of the time spent at bedside with patient and family discussing condition and GOC.
--- NOTE | 2018-12-24 16:25 | Hospitalist Progress Note ---
Date of Service December 24, 2018 Assessment & Plan (1) DVT (deep venous thrombosis): Right lower extensive occlusive DVT In setting of metastatic B cell Lymphoma S/P IVC filter placement Not a candidate for anticoagulation due to gross hematuria /acute blood loss anemia Overall prognosis is Very poor (2) Hypotension: Possible due to sepsis /intravascular volume depletion BP improved with IV fluids Hold lisinopril, metoprolol for now Monitor BP, Will resume meds as able Sepsis Complicated UTI B/L Obstructive Uropathy due pelvic mass-- large B cell lymphoma H/O bilateral ureteral stent, indwelling Mcgraw catheter Possible Bronchitis Blood Cx: No growth to date Urine culture: MRSA IV Zosyn, vancomycin transition to IV vancomycin>> transition to doxycycline Needs 2-week course of doxycycline Day # 5/12 (Discussed with ID) Stool negative for C. difficile per PCR. Appreciate urology input Acute blood loss Anemia: Due to gross hematuria S/P hb drop noted form 11.1 (Possible hemoconcentration from dehydration - baseline hb ~8.5 ) Monitor H&H Transfuse PRBCs as needed Hb: 8.6 today Started on palliative radiation today (3) Diarrhea: Experiencing diarrhea for the past several days. CT of abdomen and pelvis demonstrates enterocolitis. Recently took ciprofloxacin for cystoscopy. However, stool C. difficile PCR negative. Stool culture:Negative Consider repeating C. difficile if diarrhea persist (4) Abnormal urinalysis: Complicated Urinary Tract Infection Has bilateral ureteral stents for bilateral hydronephrosis from pelvic mass. Urine Cx: MRSA Appreciate neurology input Management as above (5) Altered mental status: Metabolic encephalopathy--Resolved Likely secondary to infection Possible delirium Avoid anticholinergic medications and other medications with HOME HEALTH CARE COORDINATOR side effects whenever possible. (6) Hypertension: Stable Resume home meds as able (7) Lymphoma: Recently found to have a large pelvic mass. Cystoscopy performed for bilateral ureteral stent placement because of bilateral hydronephrosis with acute kidney injury. Pelvic mass extended to the urinary bladder and biopsy was performed which demonstrated a diffuse large B-cell lymphoma. Seen in consultation by Dr. Sharpe. Chemotherapy not initiated yet Needs follow-up with oncology upon discharge Discussed with oncology on 12/21/18 Given gross hematuria--likely bleeding from pelvic mass into bladder Currently no plan to start chemotherapy due to acute infection Consulted radiation oncology for Palliative Radiation therapy Started on Palliative radiation therapy (8) Abnormal CT scan, chest: CT of chest demonstrates a 5 cm left lower lobe mass. Mass may be secondary to lymphoma or, perhaps, another malignancy. Further evaluation/management per Hematology/Oncology. (9) Severe malnutrition: Cachectic. 20-30 lb wt loss. Severe malnutrition due to underlying malignancy. Consulted Engineering Lab Technician. (10) DVT prophylaxis: No anticoagulants due to gross hematuria. s/p IVC filter placement (11) Discharge planning issues: To be determined. Family Medicine follow-up with Dr. Natacha King. Hematology/oncology follow-up with Dr. Sharpe. May need rehab placement Family: Contact: Mel [phone] with updates (12) Gross hematuria: (13) Pelvic mass: (14) Malnutrition, calorie: (15) Lung mass: Subjective Patient is seen and examined at bedside Feels very weak and tired after having radiation therapy today Noted dark-colored hematuria Right leg pain much improved today Discussed with palliative care, to address goals of care Discussed with family in detail at bedside Denies any chest pain, SOB, dizziness, nausea, abd pain Prognosis is poor Review of Systems Review of Systems: All systems reviewed & are unremarkable except as noted in HPI & below Physical Exam Physical Exam: Physical Exam: Vitals signs as noted above General Appearance:Thin, frail, ill appearing no apparent distress Head: normocephalic, Atraumatic Eyes: normal inspection, EOMI Neck: supple, Trachea midline Respiratory/Chest: Normal breath sounds, CTA Cardiovascular: S1, S2, No murmur Abdomen/GI:Soft, + tender, Bowel sounds present Extremities/Musculoskelatal:normal inspection, no edema Neurologic/Psych:AAOX3, grossly no focal neurological deficits Skin: normal color, warm Results & Data Vital Signs (Past 12 Hours) Vital Signs Temp Pulse Resp BP Pulse Ox 12/24/18 15:17 37.1 C 97 H 16 127/80 91 12/24/18 11:41 92 12/24/18 07:36 37.1 C 89 18 130/74 92 Laboratory Results Short CBC 12/24/18 Range/Units 06:23 Hgb 8.6 L (12.0-16.0) g/dL Hct 26.2 L (37-47) % (1) Hypotension Hypotension type: unspecified hypotension type Qualified Code(s): I95.9 - Hypotension, unspecified (2) Diarrhea Diarrhea type: unspecified type Qualified Code(s): R19.7 - Diarrhea, unspecified
[2018-12-24] MEDS: predniSONE 50 MG TAB PO SCH (18:19)
[2018-12-24] MEDS: FAMOTIDINE 20 MG TAB PO SCH (21:21)
[2018-12-25 06:00] LABS: Hematocrit (blood only) 27.3 % (37-47); Hemoglobin 8.9 g/dL (12.0-16.0)
[2018-12-25 06:25] LABS: Creatinine Clr Calc Pharmacy 30.5 ml/min; Est GFR (African American) 48.1; Est GFR (Non-African American) 41.5
[2018-12-25] MEDS: allopurinoL 300 MG TAB PO SCH (08:50)
[2018-12-25] MEDS: DOXYCYCLINE HYCLATE 100 MG CAP PO SCH ×2 (08:50→21:56)
[2018-12-25] MEDS: FAMOTIDINE 20 MG TAB PO SCH ×2 (08:50→21:55)
[2018-12-25] MEDS: LACTOBACILLUS ACIDOPHILUS (FLORANEX) TAB PO SCH ×4 (08:50→21:56)
[2018-12-25] MEDS: predniSONE 50 MG TAB PO SCH (08:50)
--- NOTE | 2018-12-25 14:23 | Palliative Care Progress Note ---
Date of Service December 25, 2018 Assessment & Plan (1) Goals of care, counseling/discussion: -Patient is feeling much better today. Bright, awake, feels well. Ate full breakfast. Not confused. - Isaiah, son and daughter at bedside. Everyone is encouraged that patient looks so well today and is no longer lethargic or confused. -Patient has no new complaints. She states "the Lord has been [id number] me, and I am happy about that." -Family requested to speak outside of room. They asked about patient's plan and prognosis. We talked about the fact that treatment at this point is aimed at palliation. XRT is meant to stop the bleeding and hopefully shrink tumor. Chemo would be to stop growth of malignancy and extend life while improving quality of life. Discussed our concern that patient has significantly declined during hospitalization, and family agreed. They too have been concerned about patient's condition. Explained that patient needs to be strong enough to undergo chemo, needs good performance status-- family verbalizes understanding. -Family still maintains that the goal is for patient to get stronger and well enough to undergo chemo. I assured them that is how we are moving forward. They have never had discussion with patient about code status, wishes if she has terminal condition, etc. Encouraged them to converse with patient about these things. -Palliative care will continue to follow and assist with medical decision making and provide supportive care. (2) Gross hematuria: (3) Altered mental status: (4) Severe malnutrition: (5) Lung mass: (6) Malnutrition, calorie: (7) Lymphoma: Subjective Patient is much more bright and awake today. Sitting up in chair, ate full breakfast, feels well. , daughter and son at bedside. Review of Systems Review of Systems: Const: + weakness Resp: No SOB, no cough Cardio: No chest pain, + BLE edema GI: + abdominal pain intermittently MS: No musculoskeletal pain Neuro: No confusion Physical Exam Constitutional: + ill appearing and + cachectic ENMT: external ear and nose normal, oropharynx normal Neck: normal visual inspection Respiratory: normal respiratory effort; no labored breathing Cardiovascular: Rate/Rhythm: regular rate and regular rhythm Extremities: + edema (+2-3 BLE edema) Gastrointestinal (Abdomen): Inspection/Auscultation: normal bowel sounds Percussion/Palpation: + abdomen tender; + abdomen not soft (firm) Neurologic: moves all extremities and awake Psychiatric: Orientation: alert and oriented x 3 Results & Data Vital Signs (Past 12 Hours) Vital Signs Pulse Resp BP Pulse Ox 12/25/18 07:42 74 18 126/76 93 Time Spent Midlevel 35 minutes with >50% of the time spent at bedside with patient and family discussing condition and GOC.
--- NOTE | 2018-12-25 15:49 | Hospitalist Progress Note ---
Date of Service December 25, 2018 Assessment & Plan (1) DVT (deep venous thrombosis): Right lower extensive occlusive DVT In setting of metastatic B cell Lymphoma S/P IVC filter placement Not a candidate for anticoagulation due to gross hematuria /acute blood loss anemia (2) Hypotension: Possible due to sepsis /intravascular volume depletion BP improved with IV fluids Hold lisinopril, metoprolol for now Monitor BP, Plan to resume home meds as able Sepsis Complicated UTI B/L Obstructive Uropathy due pelvic mass-- large B cell lymphoma H/O bilateral ureteral stent, indwelling Bermudez catheter Possible Bronchitis Blood Cx: No growth to date Urine culture: MRSA IV Zosyn, vancomycin transition to IV vancomycin>> transition to doxycycline Needs 2-week course of doxycycline Day # 6/12 (Discussed with ID) Stool negative for C. difficile per PCR. Appreciate urology input Acute blood loss Anemia: Due to gross hematuria S/P hb drop noted form 11.1 (Possible hemoconcentration from dehydration - baseline hb ~8.5 ) Monitor H&H Transfuse PRBCs as needed Hb: 8.9 today Started on palliative radiation on 12/24/18 (3) Diarrhea: CT of abdomen and pelvis demonstrates enterocolitis. Recently took ciprofloxacin for cystoscopy. Stool C. difficile PCR negative. Stool culture:Negative Consider repeating C. difficile if diarrhea persist Hyperglycemia Secondary to steroids No tight glycemic control given comorbidities (4) Abnormal urinalysis: Complicated Urinary Tract Infection Has bilateral ureteral stents for bilateral hydronephrosis from pelvic mass. Urine Cx: MRSA Appreciate neurology input Management as above (5) Altered mental status: Metabolic encephalopathy--Resolved Likely secondary to infection Possible delirium Avoid anticholinergic medications and other medications with OPERATION SPECIALIST side effects whenever possible. (6) Hypertension: Stable Resume home meds as able (7) Lymphoma: Recently found to have a large pelvic mass. Cystoscopy performed for bilateral ureteral stent placement because of bilateral hydronephrosis with acute kidney injury. Pelvic mass extended to the urinary bladder and biopsy was performed which demonstrated a diffuse large B-cell lymphoma. Seen in consultation by Dr. Sharpe. Chemotherapy not initiated yet Needs follow-up with oncology upon discharge Discussed with oncology on 12/21/18 Given gross hematuria--likely bleeding from pelvic mass into bladder Currently no plan to start chemotherapy due to acute infection Appreciate Radiation oncology help Continue Palliative radiation therapy Goal is to start on Chemotherapy when appropriate Continue Prednisone 50mg daily Day # 2/5 Needs follow up with upon discharge (8) Abnormal CT scan, chest: CT of chest demonstrates a 5 cm left lower lobe mass. Mass may be secondary to lymphoma or, perhaps, another malignancy. Further evaluation/management per Hematology/Oncology. (9) Severe malnutrition: Cachectic. 20-30 lb wt loss. Severe malnutrition due to underlying malignancy. Consulted Animal Bounty Hunter. (10) DVT prophylaxis: No anticoagulants due to gross hematuria. s/p IVC filter placement (11) Discharge planning issues: To be determined. Family Medicine follow-up with Dr. Natacha King. Hematology/oncology follow-up with Dr. Sharpe. May need rehab placement Family: Contact: Mel [phone] with updates (12) Gross hematuria: (13) Pelvic mass: (14) Malnutrition, calorie: (15) Lung mass: Subjective Patient is seen and examined at bedside Feels better today Sitting in chair with no distress Noted dark-colored hematuria in bermudez Right leg pain resolved Denies any chest pain, SOB, dizziness, nausea, abd pain Hyperglycemia noted--due to steroids Review of Systems 2 Review of Systems: All systems reviewed & are unremarkable except as noted in HPI & below Physical Exam Physical Exam: Physical Exam: Vitals signs as noted above General Appearance:Thin, frail, ill appearing no apparent distress Head: normocephalic, Atraumatic Eyes: normal inspection, EOMI Neck: supple, Trachea midline Respiratory/Chest: Normal breath sounds, CTA Cardiovascular: S1, S2, No murmur Abdomen/GI:Soft, + tender, Bowel sounds present Extremities/Musculoskelatal:normal inspection, no edema Neurologic/Psych:AAOX3, grossly no focal neurological deficits Skin: normal color, warm Results & Data Vital Signs (Past 12 Hours) Vital Signs Pulse Resp BP Pulse Ox 12/25/18 07:42 74 18 126/76 93 Laboratory Results Short CBC 12/25/18 Range/Units 05:51 Hgb 8.9 L (12.0-16.0) g/dL Hct 27.3 L (37-47) % BMP 12/25/18 05:51 Creatinine 1.25 H (1) Hypotension Hypotension type: unspecified hypotension type Qualified Code(s): I95.9 - Hypotension, unspecified (2) Diarrhea Diarrhea type: unspecified type Qualified Code(s): R19.7 - Diarrhea, unspecified
[2018-12-26 06:31] LABS: Hematocrit (blood only) 25.9 % (37-47); Hemoglobin 8.5 g/dL (12.0-16.0); Mean Corpuscular Hemoglobin 27.3 pg (25-34); Mean Corpuscular Hgb Conc 32.8 g/dL (32-36); Mean Corpuscular Volume 83.3 fL (80-100); Mean Platelet Volume 8.6 fL (7.4-10.4); Nucleated RBC # (auto) 0.02 K/uL (0-0); Nucleated RBC % (auto) 0.2 %; Platelet Count 416 K/uL (130-400); RDW Coefficient of Variation 18.2 % (11.5-14.5); RDW Standard Deviation 55.6 fL (36.4-46.3); Red Blood Count 3.11 M/uL (4.2-5.4); White Blood Count 10.59 K/uL (4.8-10.8)
[2018-12-26 07:04] LABS: BUN Creatinine Ratio 38.1 (10-20); Calcium 8.9 mg/dl (8.5-10.1); Creatinine Clr Calc Pharmacy 32.9 ml/min; Est GFR (African American) 52.6; Est GFR (Non-African American) 45.4; Potassium 4.6 mmol/L (3.5-5.1)
[2018-12-26] MEDS: LACTOBACILLUS ACIDOPHILUS (FLORANEX) TAB PO SCH ×4 (07:19→22:02)
[2018-12-26] MEDS: FAMOTIDINE 20 MG TAB PO SCH ×2 (07:28→22:02)
[2018-12-26] MEDS: DOXYCYCLINE HYCLATE 100 MG CAP PO SCH ×2 (07:28→22:02)
[2018-12-26] MEDS: predniSONE 50 MG TAB PO SCH (07:28)
[2018-12-26] MEDS: allopurinoL 300 MG TAB PO SCH (07:38)
--- NOTE | 2018-12-26 09:05 | Urology Progress Note ---
Date of Service December 26, 2018 Assessment & Plan (1) Gross hematuria: 78yo F with diffuse large B-Cell lymphoma, hypotension, bilateral ureteral stent and indwelling Mcgraw catheter with gross hematuria. Patient in better spirits, feeling well today. Palliative radiation pending. Mcgraw patent, not bothersome. Will intermittently follow, please contact our service if we can assist further during hospitalization. Subjective 78yo F with diffuse large B-Cell lymphoma, hypotension, bilateral ureteral stent and indwelling Mcgraw catheter with gross hematuria. Patient is feeling much better today. Up in chair eating breakfast upon exam. No fevers/chills. No nausea/vomiting. Mcgraw not bothersome. Review of Systems Review of Systems: Per HPI. Physical Exam Physical Exam: NAD. Resp effort normal. No JVD. Abd soft/nontender. : Mcgraw in place, patent, draining dark stevens hematuria, no significant clot noted. A&Ox3, appropriate affect. Results & Data Vital Signs (Past 12 Hours) Vital Signs Temp Pulse Resp BP BP Pulse Ox 12/26/18 07:41 36.2 C L 71 18 112/69 96 12/25/18 23:13 36.2 C L 101 H 18 148/91 H 95 PG Care Time/CCT Total # of Minutes Spent Total Time Spent with Patient: Total time spent is greater than 50% in coordination of care (as documented) at patient's floor/unit and/or counseling patient:
--- NOTE | 2018-12-26 16:35 | Hospitalist Progress Note ---
Date of Service December 26, 2018 Assessment & Plan (1) Lymphoma: Pelvic mass s/p biopsy with diagnosis of diffuse large B- cell lymphoma recently Complicated with obstructive uropathy and hematuria Now has DVT as well s/p IVC filter Not yet on chemo Palliative radiation started on 12/24/18 Patient had a discussion with palliative care team. Still wants to be full code Continue Prednisone 50mg daily Day # 3/5 Needs follow up with upon discharge (2) DVT (deep venous thrombosis): Right lower extensive occlusive DVT In setting of metastatic B cell Lymphoma S/P IVC filter placement Not a candidate for anticoagulation due to gross hematuria /acute blood loss anemia (3) UTI (urinary tract infection): Sepsis secondary to UTI MRSA on urine culture b/l obstructive uropathy due to pelvic mass (LBCL) Was intially on vancomycin, now on doxycycline Day 7 ( to complete 2 week course per discussion of Dr Hidalgo with ID) (4) Hypotension: Resolved Possible due to sepsis vs acute blood loss from hematuria BP improved with IV fluids Will continue to hold lisinopril, metoprolol for now. BP has remained stable Hb has remained stable over the past 48hrs. 8.5 today Still having hematuria. Will continue to monitor (5) Diarrhea: Reports no diarrhea today CT of abdomen and pelvis demonstrates enterocolitis. Recently took ciprofloxacin for cystoscopy. Stool C. difficile PCR negative. Stool culture:Negative (6) Hypertension: Stable Antihypertensives currently on hold as discussed above. (7) Abnormal CT scan, chest: CT of chest demonstrates a 5 cm left lower lobe mass. Mass may be secondary to lymphoma or perhaps, another primary malignancy. Further evaluation/management per Hematology/Oncology. (8) Severe malnutrition: Cachectic. Severe malnutrition due to underlying malignancy. Charrer recommendations noted (9) Altered mental status: Metabolic encephalopathy--Resolved Likely secondary to infection Possible delirium Avoid anticholinergic medications and other medications with CONTACT ACID PLANT OPERATOR HELPER side effects whenever possible. (10) DVT prophylaxis: No anticoagulants due to gross hematuria. s/p IVC filter placement (11) Discharge planning issues: Discharge planning in process Family Medicine follow-up with Dr. Natacha King. Hematology/oncology follow-up with Dr. Sharpe. May need rehab placement Family: Contact: Mel [phone] with updates (12) Gross hematuria: Subjective Patient seen and evaluated this morning. She has no new complaints. Denied any abdominal pain. Has not had any diarrhea today. Denied any fevers, chills, nausea, vomiting. Still having hematuria. Denied any dizziness, palpitations, chest pain and shortness of breath. Review of Systems Review of Systems: As above Physical Exam Physical Exam: General: Cachetic with severe muscle wasting and prominent bony points, no acute distress Eyes: PERRL, conjunctivae normal, mild pallor, anicteric sclerae, EOM intact bilaterally ENMT: External ear and nose normal, oropharynx normal Neck: Normal visual inspection, no tracheal deviation, no swelling noted Respiratory: Normal respiratory effort, no respiratory distress, lungs clear to auscultation, no crackles and no wheezes Cardiovascular: S1 and S2; Extremities: 2+ pedal edema Chest (Breasts): Chest: normal inspection of chest Gastrointestinal (Abdomen): Abdomen is soft, non-tender to palpation, normal bowel sounds Neurologic: Alert and oriented x 3, sensation grossly intact Results & Data Vital Signs (Past 12 Hours) Vital Signs Temp Pulse Pulse Resp BP BP Pulse Ox 12/26/18 14:54 36.4 C L 83 18 118/72 94 12/26/18 07:41 36.2 C L 71 18 112/69 96 Laboratory Results Laboratory Results - last 24 hr 12/26/18 12/26/18 06:19 06:19 WBC 10.59 RBC 3.11 L Hgb 8.5 L Hct 25.9 L MCV 83.3 MCH 27.3 MCHC 32.8 RDW Std Deviation 55.6 H RDW Coeff of [place] 18.2 H Plt Count 416 H MPV 8.6 Absolute Nucleated RBC 0.02 H Nucleated RBC % (auto) 0.2 Sodium 140 Potassium 4.6 Chloride 110 H Carbon Dioxide 22 Anion Gap 8.0 BUN 44 H Creatinine 1.16 Est Cr Clr Drug Dosing 32.9 Est GFR ( Amer) 52.6 Est GFR (Non-Af Amer) 45.4 BUN/Creatinine Ratio 38.1 H Glucose 136 H Calcium 8.9 (1) Diarrhea Diarrhea type: unspecified type Qualified Code(s): R19.7 - Diarrhea, unspecified (2) Hypotension Hypotension type: unspecified hypotension type Qualified Code(s): I95.9 - Hypotension, unspecified
[2018-12-27] MEDS: LACTOBACILLUS ACIDOPHILUS (FLORANEX) TAB PO SCH ×4 (07:46→21:38)
[2018-12-27] MEDS: DOXYCYCLINE HYCLATE 100 MG CAP PO SCH ×2 (07:46→21:38)
[2018-12-27] MEDS: allopurinoL 300 MG TAB PO SCH (07:46)
[2018-12-27] MEDS: FAMOTIDINE 20 MG TAB PO SCH ×2 (07:47→21:38)
[2018-12-27] MEDS: predniSONE 50 MG TAB PO SCH (07:47)
--- NOTE | 2018-12-27 11:29 | Hospitalist Progress Note ---
Date of Service December 27, 2018 Assessment & Plan (1) Lymphoma: Pelvic mass s/p biopsy with diagnosis of diffuse large B- cell lymphoma recently Complicated with obstructive uropathy and hematuria Now has DVT as well s/p IVC filter Not yet on chemo Palliative radiation started on 12/24/18. I spoke with Dr Martinez. He stated patient is currently receiving radiation therapy for the pelvic mass, planned for about 20 sessions but will reassess mass after 10 sessions. He acknowledged radiotherapy can continue outpatient. Continue Prednisone 50mg daily Day # 4/5. Will complete tomorrow. Needs follow up with upon discharge . Patient is still having hematuria. Will monitor Hb for another 24h to ensure it is still stable. (2) DVT (deep venous thrombosis): Right lower extensive occlusive DVT In setting of metastatic B cell Lymphoma S/P IVC filter placement Not a candidate for anticoagulation due to gross hematuria /acute blood loss anemia (3) UTI (urinary tract infection): Sepsis secondary to UTI MRSA on urine culture b/l obstructive uropathy due to pelvic mass (LBCL) Was intially on vancomycin, now on doxycycline Day 8 ( to complete 2 week course per discussion of Dr Hidalgo with ID) (4) Hypotension: Resolved Possible due to sepsis vs acute blood loss from hematuria BP improved with IV fluids Will continue to hold lisinopril, metoprolol for now. BP has remained stable Hb has remained stable over the past 48hrs. 8.5 today Still having hematuria. Will plan discharge without these antihypertensives for now (5) Diarrhea: Resolved CT of abdomen and pelvis demonstrates enterocolitis. Recently took ciprofloxacin for cystoscopy. Stool C. difficile PCR negative. Stool culture:Negative (6) Hypertension: Stable Antihypertensives currently on hold as discussed above. (7) Abnormal CT scan, chest: CT of chest demonstrates a 5 cm left lower lobe mass. Mass may be secondary to lymphoma or perhaps, another primary malignancy. Further evaluation/management per Hematology/Oncology. (8) Severe malnutrition: Cachectic. Reports appetite has been improving Severe malnutrition due to underlying malignancy. Curbing Stonecutter recommendations noted (9) Altered mental status: Metabolic encephalopathy--Resolved Likely secondary to infection Possible delirium Avoid anticholinergic medications and other medications with INSTRUCTIONAL DESIGN TECHNOLOGIST side effects whenever possible. (10) DVT prophylaxis: No anticoagulants due to gross hematuria. s/p IVC filter placement (11) Discharge planning issues: Plan for discharge to SNF tomorrow Will check Hb in AM to ensure still stable in the setting of continued hematuria Will arrange with case planner for transport from [facility] for planned radiotherapy sessions Family Medicine follow-up with Dr. Natacha King. Hematology/oncology follow-up with Dr. Sharpe. Family: Contact: eMl [phone] with updates (12) Gross hematuria: Subjective Patient has no complaints today. Reports that she slept well overnight. Denied any abdominal pain, fevers, chills, nausea, vomiting Denied any flank pain Still has hematuria in urine bag who was at bedside reports patient Review of Systems Review of Systems: All systems reviewed and unremarkable except for mentioned above. Physical Exam Physical Exam: General: Cachectic, no acute distress Eyes: PERRL, mild pallor, anicteric sclerae, EOM intact bilaterally ENMT: External ear and nose normal, oropharynx normal Neck: Normal visual inspection, no tracheal deviation, no swelling noted Respiratory: Normal respiratory effort, no respiratory distress, lungs clear to auscultation, no crackles and no wheezes Cardiovascular: Pulse is RRR. S1, S2, 1+pedal edema Gastrointestinal (Abdomen): Abdomen is not distended, soft, non-tender to palpation, normal bowel sounds Skin: No rash noted on gross inspection, No ulcers noted Neurologic: Alert and oriented x 3, No focal weakness, sensation grossly intact Results & Data Vital Signs (Past 12 Hours) Vital Signs Temp Pulse Pulse Resp BP BP Pulse Ox 12/27/18 07:12 36.5 C 81 18 131/75 96 12/26/18 23:52 36.6 C 79 21 162/79 H 96 (1) Diarrhea Diarrhea type: unspecified type Qualified Code(s): R19.7 - Diarrhea, unspecified (2) Hypotension Hypotension type: unspecified hypotension type Qualified Code(s): I95.9 - Hypotension, unspecified
--- NOTE | 2018-12-27 11:53 | Palliative Care Progress Note ---
Date of Service December 27, 2018 Assessment & Plan (1) Goals of care, counseling/discussion: -Patient continues to look better than on Monday. Awake, alert, oriented x4. Is still having occasional hallucinations and some delirium. It is slowly getting better as noted by family as well. -Has good appetite, eating full meals. -Plan is for 20 XRT treatments, from now through 01/21. [facility] -Urine is clearing. Some sediment noted, but urine in the Mcgraw tubing is clear. -H/H stable at 8.5. -Patient and family's goal is for patient to regain strength, become well enough to undergo chemo. She will go to SNF after hospitalization, but they are hoping patient will get back home. -Patient is currently a full code. Family states they have never discussed this or her end-of-life wishes. They plan to have conversation once patient is fully back in her right mind. I encouraged them to reach out to our team if they would like any assistance with medical decision making or conversations. -Family at bedside and denied further questions/concerns. -Palliative care will sign off, but please contact us with any further needs. (2) Gross hematuria: (3) Altered mental status: (4) Severe malnutrition: (5) Lung mass: (6) Malnutrition, calorie: (7) Lymphoma: Subjective Patient continues to look better than on Monday. She is oriented x4, not lethargic, but does still have some hospital delirium. Hallucinations at times, thought she was at a [place] last night and there was a "woman with a light." Review of Systems Review of Systems: Const: + weakness Resp: No SOB, no cough Cardio: No chest pain, + BLE edema GI: + abdominal pain intermittently MS: No musculoskeletal pain Neuro: + confusion reported by family Physical Exam Constitutional: + cachectic ENMT: external ear and nose normal, oropharynx normal Neck: normal visual inspection Respiratory: normal respiratory effort; no labored breathing Cardiovascular: Rate/Rhythm: regular rate and regular rhythm Extremities: + edema (+2-3 BLE edema) Gastrointestinal (Abdomen): Inspection/Auscultation: normal bowel sounds Percussion/Palpation: + abdomen tender; + abdomen not soft (firm) Neurologic: moves all extremities and awake Psychiatric: Orientation: alert and oriented x 3 (periods of confusion/delirium) Results & Data Vital Signs (Past 12 Hours) Vital Signs Temp Pulse Pulse Resp BP BP Pulse Ox 12/27/18 07:12 36.5 C 81 18 131/75 96 12/26/18 23:52 36.6 C 79 21 162/79 H 96 Time Spent Midlevel 35 minutes with >50% of the time spent at bedside with patient and family discussing condition and GOC.
[2018-12-27 12:05] LABS: Hematocrit (blood only) 29.5 % (37-47); Hemoglobin 9.3 g/dL (12.0-16.0); Mean Corpuscular Hemoglobin 27.2 pg (25-34); Mean Corpuscular Hgb Conc 31.5 g/dL (32-36); Mean Corpuscular Volume 86.3 fL (80-100); Mean Platelet Volume 8.7 fL (7.4-10.4); Platelet Count 474 K/uL (130-400); RDW Coefficient of Variation 18.4 % (11.5-14.5); RDW Standard Deviation 57.8 fL (36.4-46.3); Red Blood Count 3.42 M/uL (4.2-5.4); White Blood Count 10.36 K/uL (4.8-10.8)
[2018-12-28 05:51] LABS: Hematocrit (blood only) 26.3 % (37-47); Hemoglobin 8.4 g/dL (12.0-16.0); Mean Corpuscular Hemoglobin 26.9 pg (25-34); Mean Corpuscular Hgb Conc 31.9 g/dL (32-36); Mean Corpuscular Volume 84.3 fL (80-100); Mean Platelet Volume 8.6 fL (7.4-10.4); Platelet Count 421 K/uL (130-400); RDW Coefficient of Variation 18.2 % (11.5-14.5); Red Blood Count 3.12 M/uL (4.2-5.4); White Blood Count 7.97 K/uL (4.8-10.8)
[2018-12-28 07:36] VITALS: TEMP 97.3
[2018-12-28] MEDS: predniSONE 50 MG TAB PO SCH (09:07)
[2018-12-28] MEDS: FAMOTIDINE 20 MG TAB PO SCH (09:07)
[2018-12-28] MEDS: allopurinoL 300 MG TAB PO SCH (09:07)
[2018-12-28] MEDS: LACTOBACILLUS ACIDOPHILUS (FLORANEX) TAB PO SCH ×2 (09:07→12:53)
[2018-12-28] MEDS: DOXYCYCLINE HYCLATE 100 MG CAP PO SCH (09:07)
--- NOTE | 2018-12-28 12:47 | Hospitalist Progress Note ---
Date of Service December 28, 2018 Assessment & Plan (1) Lymphoma: Pelvic mass s/p biopsy with diagnosis of diffuse large B- cell lymphoma recently Complicated with obstructive uropathy and hematuria Now has DVT as well s/p IVC filter Not yet on chemo Palliative radiation started on 12/24/18.Has got 5 sessions of radiation today. Will continue on Monday. Will need transport for this from rehab. Complete prednisone today Needs follow up with upon discharge . Hematuria has resolved currently. Hb is stable in the 8s for past 3 days. (2) DVT (deep venous thrombosis): Right lower extensive occlusive DVT In setting of metastatic B cell Lymphoma S/P IVC filter placement Not a candidate for anticoagulation due to gross hematuria /acute blood loss anemia (3) UTI (urinary tract infection): Sepsis secondary to UTI MRSA on urine culture b/l obstructive uropathy due to pelvic mass (LBCL) Was intially on vancomycin, now on doxycycline Day 9 ( to complete 2 week course per discussion of Dr Hidalgo with ID) (4) Hypotension: Resolved Possible due to sepsis vs acute blood loss from hematuria BP improved with IV fluids Will discharge off antihypertensives (5) Diarrhea: Resolved CT of abdomen and pelvis demonstrates enterocolitis. Recently took ciprofloxacin for cystoscopy. Stool C. difficile PCR negative. Stool culture:Negative (6) Hypertension: Stable Antihypertensives currently on hold as discussed above. (7) Abnormal CT scan, chest: CT of chest demonstrates a 5 cm left lower lobe mass. Mass may be secondary to lymphoma or perhaps, another primary malignancy. Further evaluation/management per Hematology/Oncology. (8) Severe malnutrition: Cachectic. Reports appetite has been improving Severe malnutrition due to underlying malignancy. Machine Shop Repair Technician recommendations noted (9) Altered mental status: Metabolic encephalopathy has resolved Likely secondary to infection Possible delirium Avoid anticholinergic medications and other medications with MENTAL HEALTH WORKER side effects whenever possible. (10) Gross hematuria: Resolved (11) Discharge planning issues: Will be discharged today Arranged with rehabilitation caseworker for transport from SNF for planned radiotherapy sessions Family Medicine follow-up with Dr. Natacha King. Hematology/oncology follow-up with Dr. Sharpe. Discussed with urologist. Will be discharged with bermudez to follow up with urology outpatient I discussed plan with son and daughter who were at bedside Subjective Patient has no complaints today Son and Daughter were at bedside. Hematuria is resolved. Clear urine in bag Denied any dizziness, palpitations, headache Denied leg pains Denied any fevers, abdominal pain Review of Systems Review of Systems: All systems reviewed and unremarkable except for mentioned above. Physical Exam Physical Exam: General: Cachectic Eyes: PERRL,mild pallor, anicteric sclerae, EOM intact bilaterally ENMT: External ear and nose normal, oropharynx normal Neck: Normal visual inspection, no tracheal deviation, no swelling noted Respiratory: Normal respiratory effort, no respiratory distress, lungs clear to auscultation, no crackles and no wheezes Cardiovascular: Pulse is RRR. S1 S2 Chest (Breasts): Chest: normal inspection of chest Gastrointestinal (Abdomen): Abdomen is soft, non-tender to palpation, no guarding, normal bowel sounds Genitourinary: Clear yellow urine in urine bag Skin: No rash noted on gross inspection, No ulcers noted Neurologic: Alert and oriented x 3, no gross focal deficits, sensation grossly intact Psychiatric: Alert and oriented x 3, patient in great spirits Results & Data Vital Signs (Past 12 Hours) Vital Signs Temp Pulse Resp BP Pulse Ox 12/28/18 07:34 36.3 C L 61 16 157/65 H 93 12/28/18 02:13 36.2 C L Laboratory Results Laboratory Results - last 24 hr 12/28/18 05:12 WBC 7.97 RBC 3.12 L Hgb 8.4 L Hct 26.3 L MCV 84.3 MCH 26.9 MCHC 31.9 L RDW Std Deviation 56.0 H RDW Coeff of [place] 18.2 H Plt Count 421 H MPV 8.6 (1) Diarrhea Diarrhea type: unspecified type Qualified Code(s): R19.7 - Diarrhea, unspecified (2) Hypotension Hypotension type: unspecified hypotension type Qualified Code(s): I95.9 - Hypotension, unspecified
[2018-12-28 15:08] VITALS: O2SAT 95
[2018-12-28 15:43] VITALS: BP 135/73; PULSE 82
--- NOTE | 2018-12-28 17:59 | Discharge Summary ---
Date of Service December 28, 2018 Admission HPI Per Admitting Provider 78-year-old female followed by Dr. Natacha Young for Family Medicine and Dr. Sharpe for Hematology/Oncology. Admitted to [facility] on 11/11/2018 with acute kidney injury. Found to have bilateral hydronephrosis secondary to large pelvic mass. Cystoscopy with bilateral ureteral stent placement performed by Dr. Hamilton. Biopsy from cystoscopy demonstrated a diffuse large B-cell lymphoma. Patient was discharged to [facility] for skilled care and then discharged home after about 1 week. Seen in clinic by Dr. Sharpe for Hematology/Oncology consultation. Arrangements were being made for chemotherapy which was to be initiated this week. Over the last several days, patient has been having watery diarrhea several times a day. She is been anorexic and has some nausea, but no emesis. Experiencing diffuse abdominal discomfort. No apparent melena or hematochezia. No fever or chills. Family notes some confusion. Fell this morning because of generalized weakness. Came to ED for evaluation. Hypotensive with a blood pressure of 68/53 upon arrival to the ED. Received fluid resuscitation with improvement of hemodynamics. Admission Exam Per Admitting Provider Constitutional: + ill appearing and + cachectic Eyes: PERRL, conjunctivae normal, anicteric sclerae ENMT: Ears: no external ear abnormality Nose: no external nose abnormality upper and lower dentures; oral mucosa dry Neck: trachea midline, no thyromegaly Respiratory: normal respiratory effort, lungs clear to auscultation Cardiovascular: Rate/Rhythm: regular rate, regular rhythm and + tachycardic Heart Sounds: + murmur (I/ sys murmur LSB); no gallop and no cardiac rub Vessels: no JVD Extremities: normal capillary refill and + edema; no calf tenderness Gastrointestinal (Abdomen): Inspection/Auscultation: + abdomen distended; + abnormal bowel sounds (hyperactive) large pelvic mass with tenderness Musculoskeletal: Head/Neck/Chest: neck supple Extremities: no cyanosis and no clubbing Skin: no rashes, warm and dry ~ 5 cm subcutaneous mass overlying right scapula Neurologic: PERRL, EOMI no facial palsy no dysarthria or aphasia patellar DTR's 1/2 bilat Psychiatric: Orientation: alert; + not oriented x 3 Affect: euthymic affect oriented to person, place, year but not day of week unable to name current president easily distracted Genitourinary: Bermudez catheter with gross hematuria Principal Diagnosis Urinary Tract Infection (MRSA) Right Lower extremity Deep venous thrombosis 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 S1 S2 Chest (Breasts): Chest: normal inspection of chest Gastrointestinal (Abdomen): Abdomen is soft, non-tender to palpation, no guarding, normal bowel sounds Genitourinary: Clear yellow urine in urine bag Skin: No rash noted on gross inspection, No ulcers noted Neurologic: Alert and oriented x 3, no gross focal deficits, sensation grossly intact Psychiatric: Alert and oriented x 3, patient in great spirits Discharge Data Allergies Allergy/AdvReac Type Severity Reaction Status Date / Time acetaminophen [From Vicodin] Allergy Swelling Verified 12/17/18 16:00 of Lip/Tongue/Throat hydrocodone [From Vicodin] Allergy Swelling Verified 12/17/18 16:00 of Lip/Tongue/Throat Consultations 12/17/18 17:17 ED Decision to Admit Stat 12/18/18 08:00 Consult Urology Routine 12/18/18 08:43 Consult Vascular Surgery Routine 12/21/18 13:35 Consult Radiation Oncology Routine 12/24/18 08:00 Consult Palliative Care Routine Procedures Performed Operation Date: 12/18/18 11:00 Actual Procedures p Insertion of Inferior Vena Cava Filter, Right Internal Jugular Appraoch, Ultrasound Loclaization of Right Internal Jugular Vein, Fluoroscopy for positioning, Moderate Sedation from 1050- 1122.(Right) - Salvatore Diggs MD Ordered Studies 12/17/18 15:28 CT abd pelvis IV con only Stat : 1. No acute intra-abdominal injury. No gross evidence of a displaced fracture. 2. Interval worsening of extrapleural pelvic masses concerning for progression of disease, likely lymphoma. Greater surrounding soft tissue invasion. These masses results in obstructive uropathy, however, bilateral ureteral stents have been placed with decreased severity of hydronephrosis. 3. Interval development of an enterocolitis, likely infectious. 4. Left infrahilar mass in the left lower lobe concerning for neoplasm, either primary bronchogenic or related to lymphoma. CT cervical spine wo con Stat - No acute fractures/abnormalities CT chest w con Stat : 1. Motion artifact degrades evaluation and moderately limits diagnostic sensitivity the exam. Allowing for this, no acute intrathoracic injury. 2. 5.1 cm left lower lobe central infrahilar mass highly concerning for primary bronchogenic neoplasm. 3. Mild cardiomegaly. CT head/brain wo con Stat - No acute abnormality 12/17/18 19:38 US venous doppler LE BI Urgent -Extensive deep venous thrombus within the right lower extremity. 12/18/18 10:30 EV IVC filter placement Routine 12/24/18 CT guide rad therapy pelvis Routine Hospital Course (1) Lymphoma: Pelvic mass s/p biopsy with diagnosis of diffuse large B- cell lymphoma recently Complicated with obstructive uropathy and hematuria Now has DVT as well s/p IVC filter Not yet on chemo Palliative radiation started on 12/24/18.Has got 5 sessions of radiation today. Will continue on Monday. Will need transport for this from rehab. Completed prednisone Needs follow up with upon discharge . Hematuria has resolved currently. Hb is stable in the 8s for past 3 days. (2) DVT (deep venous thrombosis): Right lower extensive occlusive DVT In setting of metastatic B cell Lymphoma S/P IVC filter placement Not a candidate for anticoagulation due to gross hematuria /acute blood loss anemia (3) UTI (urinary tract infection): Sepsis secondary to UTI MRSA on urine culture b/l obstructive uropathy due to pelvic mass (LBCL) Was intially on vancomycin, now on doxycycline Day 9 ( to complete 2 week course) (4) Hypotension: Resolved Possible due to sepsis vs acute blood loss from hematuria BP improved with IV fluids Was discharged off antihypertensives (5) Diarrhea: Resolved CT of abdomen and pelvis demonstrates enterocolitis. Recently took ciprofloxacin for cystoscopy. Stool C. difficile PCR negative. Stool culture:Negative (6) Hypertension: Stable Antihypertensives currently on hold as discussed above. (7) Abnormal CT scan, chest: CT of chest demonstrates a 5 cm left lower lobe mass. Mass may be secondary to lymphoma or perhaps, another primary malignancy. Further evaluation/management per Hematology/Oncology. (8) Severe malnutrition: Cachectic. Reports appetite has been improving Severe malnutrition due to underlying malignancy. Continue dietary supplements as recommended by electrical engineering drafting officer. (9) Altered mental status: Metabolic encephalopathy has resolved Likely secondary to infection Possible delirium Avoid anticholinergic medications and other medications with [employer]PER side effects whenever possible. (10) Gross hematuria: Resolved (11) Discharge planning issues: Arranged with residential case manager for transport from SNF for planned radiotherapy sessions Family Medicine follow-up with Dr. Natacha King. Hematology/oncology follow-up with Dr. Sharpe. Discussed with urologist. 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 Left lung mass Condition on Discharge: Fair Activity: Per Instructions section Activity Comment: Per recommendations by Physical therapist at rehab Bathing: No limitations Exercise/Sports: As tolerated Non-emergency contact: Primary Care Provider and Oncologist Call non-emergency contact if: you have any medication questions and your symptoms worsen Follow-up/Referrals: Kiran Mratinez MD [Physician] - (Follow up for Radiation treatments) Liang Hamilton II, DO [Physician] - Natacha King DO [Primary Care Provider] - Huy Sharpe MD [Hospitalist] - Dietitian Info: Add 4oz boost GC QID (chocolate/strawberry) at meals and HS to supplement d Diet: Regular Addtl Attending Provider Instructions: Ms Mccauley. You came to the hospital with diarrhea and abdominal discomfort. On presentation, your blood pressure was very low. Evaluations which include different blood tests and scans showed you had a urinary tract infection which was treated with antibiotics. You are to complete the remaining days of the antibiotics on discharge. You also had bloody urine. CT scan showed your pelvic mass was getting worse and causing some obstruction as well as the bleeding. For this, you were started on radiation treatments for the mass. You have received 5 sessions so far in the hospital. You will need to continue these sessions daily (monday to fridays) with the Radiation Oncologist Dr Martinez. You were also found to have a blood clot in your right leg. However, due to your bleeding (bloody urine), you were not treated with blood thinners.You had an IVC filter placed in your blood vessel to reduce likelihood of clots traveling to your lungs. Your diarrhea and bloody urine has resolved at this time. However, it is important you follow up with the Radiation Doctor and the Oncologist as well for continued management. All blood pressure medications are stopped at this time. Please follow up with your Primary Doctor to determine if and when safe to resume them. Please follow up with urology regarding the bermudez and obstructive uropathy. It was a pleasure taking care of You. Pending Studies at Discharge: No Stand-Alone Forms: [facility] Skilled Items Patient informed of condition?: Yes DNR: No Discharge Level of Care: Skilled Communicable Disease: No Discharge Prognosis: Stable Lines: None Urinary Catheter: Yes Medications and DC Order Prescriptions: New acetaminophen [Mapap (acetaminophen)] 325 mg Tablet 650 mg PO Q4H PRN (Reason: pain) Qty: 60 RF: 0 doxycycline hyclate 100 mg Capsule 100 mg PO BID 5 Days Qty: 10 RF: 0 Continued ondansetron HCl 8 mg tablet 8 mg PO Q8H PRN (Reason: Nausea) RF: 0 allopurinol 300 mg tablet 300 mg PO DAILY RF: 0 Discontinued metoprolol succinate 25 mg tablet extended release 24 hr 25 mg PO QAM RF: 0 prednisone 20 mg tablet See Rx Instructions .ROUTE .COMPLEX RF: 0 prochlorperazine maleate 10 mg tablet 10 mg PO Q6H PRN (Reason: Nausea) RF: 0 tramadol 50 mg Tablet 25 mg PO Q6H PRN (Reason: Pain, Moderate/Severe) RF: 0 lisinopril 40 mg tablet 40 mg PO DAILY RF: 0 Discharge Orders: Discharge Order (Routine); Ordered 12/28/18 Ordered By: Rocío Lipscomb Admission Data Admit Date/Time: 12/17/18 17:47 Attending Provider: Rocío Lipscomb I. Admit Provider: Antelmo Lozoya Primary Care Provider: Natacha King Other Providers: Antelmo Lozoya ; Liang Hamilton II ; Salvatore Diggs ; Neyda Gordillo ; Kiran Martinez ; Estefani Warner ; Ranjan Hidalgo. Other Interventions: Discharge Summary Assessment (RN) Last Done: 12/28/18 15:26 DC Date/Time DO NOT enter until pt leaves facility: 12/28/18 16:37
== END 2018-12-28 16:37 | DRG 853 ==
LOC: ED 14:42 → SUATTDRO 17:47 → 2S 17:47 → 3W 12-20 10:20